=== PATIENT | male | born 1965 | race Caucasian/White ===

== ENCOUNTER 2016-11-02 17:33 | Inpatient (IN) | payer OTHER ==
[2016-11-02 17:40] VITALS: BMI 21.1
--- NOTE | 2016-11-02 18:28 | HP ---
COWS - Scale Resting Pulse: 1= [place] 81-100 Sweatin= Chills/Flushing Restless Observation: 3= Extraneous Movement Pupil Size: 1= Pupils >than Normal Bone or Joint Aches: 2= Severe Diffuse Aches Runny Nose/ Eye Tearin= Runny Nose/Eyes GI Upset > 30mins: 3= Vomiting/Diarrhea Tremor Observation: 2= Slight Tremor Visible Yawning Observation: 1= 1-2x During Session Anxiety or Irritability: 2=Irritable/Anxious Goose Flesh Skin: 3=Piloerection COWS Score: 21 CIWA Score - CIWA Score Nausea/Vomitin Muscle Tremors: 4-Moderate,w/Arms Extend Anxiety: 4-Mod. Anxious/Guarded Agitation: 4-Moderately Restless Paroxysmal Sweats: 2 Orientation: 3-Disoriented Date>2 days Tacttile Disturbances: 0-None Auditory Disturbances: 0-None Visual Disturbances: 0-None Headache: 0-None Present CIWA-Ar Total Score: 19 Admission ROS S - HPI Chief Complaint: withdrawal sx Allergies/Adverse Reactions: Allergies Allergy/AdvReac Type Severity Reaction Status Date / Time No Known Allergies Allergy Verified 05/09/15 13:51 History of Present Illness: 51 years old male with long history of alcohol opiate nicotine dependence, asthma hiv denies mental illness is admitted to detox Exam Limitations: No Limitations - Ebola screening Have you traveled outside of the country in the last 21 days: No Have you had contact with anyone from an Ebola affected area: No Have you been sick,other than usual withdrawal symptoms: No Do you have a fever: No - Review of Systems Constitutional: Chills, Loss of Appetite, Changes in sleep, Unexplained wgt Loss EENT: reports: No Symptoms Reported Respiratory: reports: Cough Cardiac: reports: Palpitations GI: reports: Diarrhea, Nausea, Poor Appetite, Poor Fluid Intake, Vomiting, Indigestion, Abdominal cramping : reports: No Symptoms Reported Musculoskeletal: reports: Back Pain, Joint Pain, Muscle Pain, Neck Pain Integumentary: reports: Change in Color (both inner elbows) Neuro: reports: Tremors Endocrine: reports: No Symptoms Reported Hematology: reports: No Symptoms Reported Psychiatric: reports: Judgement Intact, Mood/Affect Appropiate Other Systems: Reviewed and Negative Patient History - Patient Medical History Hx Anemia: No Hx Asthma: Yes Hx Chronic Obstructive Pulmonary Disease (COPD): No Hx Cancer: No Hx Cardiac Disorders: No Hx Congestive Heart Failure: No Hx Hypertension: No Hx Hypercholesterolemia: No Hx Pacemaker: No HX Cerebrovascular Accident: No Hx Seizures: No Hx Dementia: No Hx Diabetes: No Hx Gastrointestinal Disorders: Yes Hx Liver Disease: No Hx Genitourinary Disorders: No Hx Sexually Transmitted Disorders: No Hx Renal Disease (ESRD): No Hx Thyroid Disease: No Hx Human Immunodeficiency Virus (HIV): Yes Hx Hepatitis C: Yes Hx Depression: No Hx Suicide Attempt: No Hx Bipolar Disorder: No Hx Schizophrenia: No - Patient Surgical History Past Surgical History: No Hx Neurologic Surgery: No Hx Cataract Extraction: No Hx Cardiac Surgery: No Hx Lung Surgery: No Hx Breast Surgery: No Hx Breast Biopsy: No Hx Abdominal Surgery: No Hx Appendectomy: No Hx Cholecystectomy: No Hx Genitourinary Surgery: No Hx Orthopedic Surgery: No Anesthesia Reaction: No - PPD History Previous Implant?: Yes Documented Results: Positive w/o proof Implanted On Prior R Admission?: No PPD to be Administered?: No - Smoking Cessation Smoking history: Current every day smoker Have you smoked in the past 12 months: Yes Aproximately how many cigarettes per day: 5 Cigars Per Day: 0 Hx Chewing Tobacco Use: No Initiated information on smoking cessation: Yes 'Breaking Loose' booklet given: 11/02/16 - Substance & Tx. History Hx Alcohol Use: Yes Hx Substance Use: Yes Substance Use Type: Alcohol, Cocaine, Opiates Hx Substance Use Treatment: Yes - Substances Abused Alcohol Route: Oral Frequency: Daily Amount used: 40oz 6 pack Age of first use: 12 Date of Last Use: 11/02/16 Heroin Route: Injection Frequency: Daily Amount used: 20 bags Age of first use: 12 Date of Last Use: 11/01/16 Family Disease History - Family Disease History Family History: Denies Admission Physical Exam BHS - Vital Signs Vital Signs: Vital Signs - 24 hr 11/02/16 17:35 Temperature 96.8 F L Pulse Rate 95 H Respiratory 20 Rate Blood Pressure 130/83 - Physical General Appearance: Yes: Appropriately Dressed, Moderate Distress, Thin, Tremorous, Irritable, Sweating, Anxious HEENTM: Yes: Hearing grossly Normal, Normal ENT Inspection, Normocephalic, Normal Voice Respiratory: Yes: Chest Non-Tender, Lungs Clear, Normal Breath Sounds, No Respiratory Distress, No Accessory Muscle Use Neck: Yes: Supple, Trachea in good position Breast: Yes: Breasts Symetrical Cardiology: Yes: Regular Rhythm, Regular Rate, S1, S2 Abdominal: Yes: Non Tender, Soft Genitourinary: Yes: Within Normal Limits Back: Yes: Normal Inspection Musculoskeletal: Yes: full range of Motion, Gait Steady, Back pain, Muscle Pain Extremities: Yes: Normal Range of Motion, Non-Tender, Tremors Neurological: Yes: Alert, Motor Strength 5/5, Normal Mood/Affect, Normal Response Integumentary: Yes: Warm, Moist, Track Patel Lymphatic: Yes: Within Normal Limits - Diagnostic (1) Alcohol dependence with uncomplicated withdrawal Current Visit: Yes Status: Acute (2) Opioid dependence with withdrawal Current Visit: Yes Status: Acute (3) Nicotine dependence Current Visit: Yes Status: Acute Qualifiers: Nicotine product type: cigarettes Substance use status: in withdrawal Qualified Code(s): F17.213 - Nicotine dependence, cigarettes, with withdrawal (4) Asthma Current Visit: Yes Status: Acute Qualifiers: Asthma severity: mild intermittent Asthma complication type: with status asthmaticus Qualified Code(s): J45.22 - Mild intermittent asthma with status asthmaticus (5) HIV (human immunodeficiency virus infection) Current Visit: Yes Status: Chronic Comment: last dose "months" ago (6) Weight loss Current Visit: Yes Status: Acute (7) GERD (gastroesophageal reflux disease) Current Visit: Yes Status: Acute (8) Hepatitis C antibody test positive Current Visit: Yes Status: Chronic (9) Positive PPD, treated Current Visit: Yes Status: Resolved Comment: chest x ray pending Cleared for Admission [facility] - Detox or Rehab [facility] Level of Care: Medically Managed Detox Regimen/Protocol: Methadone/Librium [facility] Breath Alcohol Content Breath Alcohol Content: 0 Urine Drug Screen - Results Drug Screen Negative: No Urine Drug Screen Results: EMILIA-Cocaine, OPI-Opiates, TCA-Tricyclic Antidepress
[2016-11-02] MEDS ORDERED: NICOTINE POLACRILEX 2 MG GUM BC PRN (18:36)
[2016-11-02] MEDS ORDERED: MENTHOL/PHENOL 1 EACH UD MM PRN (18:36)
[2016-11-02] MEDS ORDERED: LOPERAMIDE HCL 2 MG CAPSULE PO PRN (18:36)
[2016-11-02] MEDS ORDERED: MAGNESIUM HYDROX 2400MG/30ML ORAL SUSPENSION 30 ML CUP PO PRN (18:36)
[2016-11-02] MEDS ORDERED: MAG HYDROX/AL HYDROX/SIMETH 30 ML UNIT-DOSE CUP PO PRN (18:36)
[2016-11-02] MEDS ORDERED: MAGNESIUM CITRATE 300 ML BOTTLE PO PRN (18:36)
[2016-11-02] MEDS ORDERED: P-EPHED 60MG/TRIPROLIDI 2.5MG TABLET PO PRN (18:36)
[2016-11-02] MEDS ORDERED: METHADONE HCL 10 MG TABLET (FOR DETOX USE ONLY) PO ONE ×2 (18:36→23:00)
[2016-11-02] MEDS ORDERED: chlordiazePOXIDE HCL 25 MG CAPSULE PO ONE (18:36)
[2016-11-02] MEDS ORDERED: chlordiazePOXIDE HCL 25 MG CAPSULE PO PRN (18:36)
[2016-11-02] MEDS ORDERED: ACETAMINOPHEN 325 MG TABLET (FP) PO PRN (18:36)
[2016-11-02] MEDS ORDERED: guaiFENesin/D-METHORPHAN HB 10 ML UNIT-DOSE CUPS PO PRN (18:36)
[2016-11-02] MEDS ORDERED: ALBUTEROL SO4 2.5/IPRATROPIUM 0.5 INH SOL 3 ML VIAL.NEB. NEB PRN (18:39)
[2016-11-02] MEDS ORDERED: ALBUTEROL SO4 6.7 GM HFA INHALER IH PRN (18:39)
[2016-11-02] MEDS: THIAMINE HCL 100 MG TABLET (FP) PO SCH (22:37)
[2016-11-02] MEDS: chlordiazePOXIDE HCL 25 MG CAPSULE PO SCH (22:38)
[2016-11-02] MEDS: RANITIDINE HCL 150 MG TABLET (FP) PO SCH (22:38)
[2016-11-02] MEDS: diphenhydrAMINE HCL 50 MG CAPSULE PO PRN (22:40)
[2016-11-03] MEDS: diphenhydrAMINE HCL 50 MG CAPSULE PO PRN (00:23)
[2016-11-03] MEDS: chlordiazePOXIDE HCL 25 MG CAPSULE PO SCH ×4 (05:49→22:34)
[2016-11-03] MEDS: TAMSULOSIN HCL 0.4 MG CAP.ER.24H (FP) PO SCH (09:38)
[2016-11-03] MEDS ORDERED: ARIPiprazole 5 MG TABLET (FP) PO SCH (10:00)
[2016-11-03] MEDS ORDERED: METHADONE HCL 10 MG TABLET (FOR DETOX USE ONLY) PO SCH (10:00)
[2016-11-03 10:01] LABS: MCH 26.6 pg (25.7-33.7); MCHC 33.1 g/dl (32.0-35.9); MEAN CELL VOLUME 80.1 fl (80-96); MEAN PLT VOLUME 7.9 fl (7.5-11.1); PLATELET COUNT 101 K/MM3 (134-434); RDW 14.9 % (11.9-15.9); WHITE BLOOD COUNT 2.9 K/mm3 (4.0-10.0)
[2016-11-03] MEDS: PRENATAL VITAMINS W/ FOLIC ACID TABLET (FP) PO SCH (10:32)
[2016-11-03] MEDS: RANITIDINE HCL 150 MG TABLET (FP) PO SCH ×2 (10:32→22:07)
[2016-11-03] MEDS: NICOTINE 14 MG/24 HOURS TOPICAL PATCH TD SCH (10:32)
--- NOTE | 2016-11-03 11:26 | PN ---
S CIWA - CIWA Score Nausea/Vomitin Muscle Tremors: 4-Moderate,w/Arms Extend Anxiety: 4-Mod. Anxious/Guarded Agitation: 4-Moderately Restless Paroxysmal Sweats: 3 Orientation: 0-Oriented Tacttile Disturbances: 1-Very Mild Itch/Numbness Auditory Disturbances: 0-None Visual Disturbances: 0-None Headache: 0-None Present CIWA-Ar Total Score: 19 S COWS - Scale Resting Pulse: 1= [place] 81-100 Sweatin= Chills/Flushing Restless Observation: 1= Difficult to Sit Still Pupil Size: 1= Pupils >than Normal Bone or Joint Aches: 1= Mild Discomfort Runny Nose/ Eye Tearin= Nasal Congestion GI Upset > 30mins: 2= Nausea/Diarrhea Tremor Observation of Outstretched Hands: 2= Slight Tremor Visible Yawning Observation: 1= 1-2x During Session Anxiety or Irritability: 2=Irritable/Anxious Goose Flesh Skin: 3=Piloerection COWS Score: 16 S Progress Note (SOAP) Subjective: nausea, sweats, interrupted sleep, anxiety, tremor, back pain, dry skin Objective: 11/03/16 11:25 Vital Signs - 8 hr 11/03/16 11/03/16 11/03/16 03:47 06:35 10:12 Temperature 97.0 F L 96.6 F L Pulse Rate 74 86 Respiratory 18 18 18 Rate Blood Pressure 125/88 127/88 Laboratory Tests 11/02/16 11/03/16 11/03/16 22:28 07:15 07:15 WBC 2.9 L RBC 4.81 Hgb 12.8 Hct 38.5 MCV 80.1 MCHC 33.1 RDW 14.9 Plt Count 101 L D MPV 7.9 Sodium 143 Potassium 3.6 Chloride 106 Carbon Dioxide 28 Anion Gap 9 BUN 15 Creatinine 1.0 Creat Clearance w eGFR > 60 Random Glucose 99 Calcium 8.5 Total Bilirubin 0.7 AST 25 D ALT 39 Alkaline Phosphatase 70 Total Protein 7.1 Albumin 3.6 Urine Color Straw Urine Appearance Clear Urine pH 7.0 Ur Specific [place] 1.008 Urine Protein Negative Urine Glucose (UA) Negative Urine Ketones Negative Urine Blood Negative Urine Nitrite Negative Urine Bilirubin Negative Urine Urobilinogen Negative Ur Leukocyte Esterase Negative Assessment: 11/03/16 11:25 withdrawal sx, chronic low back ain, dry skin/xerosis Plan: cont detox, naprosyn, flexeril for pain, d/c tyleno as patient has hep c with liver damage, encoruage fluids for dehydation
[2016-11-03] MEDS: AMMONIUM LACTATE 12% LOTION 225 GM BOTTLE TP SCH ×2 (12:26→22:09)
[2016-11-03] MEDS: LIDOCAINE 5% TOPICAL PATCH TP SCH (12:27)
[2016-11-03] MEDS: NAPROXEN 500 MG TABLET (FP) PO SCH ×2 (12:27→22:07)
[2016-11-03] MEDS: CYCLOBENZAPRINE HCL 10 MG TABLET (FP) PO SCH ×2 (14:04→22:08)
--- NOTE | 2016-11-03 14:28 | EKG ---
Test Reason : Blood Pressure : / mmHG Vent. Rate : 083 BPM Atrial Rate : 083 BPM P-R Int : 106 ms QRS Dur : 076 ms QT Int : 348 ms P-R-T Axes : 046 053 041 degrees QTc Int : 408 ms SINUS RHYTHM WITH SHORT DC OTHERWISE NORMAL ECG WHEN COMPARED WITH ECG OF 09-MAY-2015 20:14, NON-SPECIFIC CHANGE IN ST SEGMENT IN ANTERIOR LEADS NONSPECIFIC T WAVE ABNORMALITY NO LONGER EVIDENT IN ANTERIOR LEADS Confirmed by SHADE WADSWORTH MD ([id number]) on 11/03/2016 2:28:15 PM Referred By: Confirmed By:SHADE WADSWORTH MD
--- NOTE | 2016-11-03 15:00 | CONSULT ---
[id number] [facility] Identifying data: This is 51 years old male with history of Schizophrenia, history of psychiatric hospitalizations, intoxicated with: Alcohol, Heroin and Nicotine Substance Abuse History: Smoking Cessation. Smoking history: Current every day smoker. Have you smoked in the past 12 months: Yes. Aproximately how many cigarettes per day: 5. Cigars Per Day: 0. Hx Chewing Tobacco Use: No. Initiated information on smoking cessation: Yes. 'Breaking Loose' booklet given : 11/02/16. - Substance & Tx. History. Hx Alcohol Use: Yes. Hx Substance Use : Yes. Substance Use Type: Alcohol, Cocaine, Opiates. Hx Substance Use Treatment: Yes. - Substances Abused. Alcohol. Route: Oral. Frequency: Daily. Amount used: 40oz 6 pack. Age of first use: 12. Date of Last Use: . Heroin. Route: Injection. Frequency: Daily. Amount used: 20 bags. Age of first use: 12. Date of Last Use: 11/01/16 Medical History: Asthma, HPH, GERD, HIV+, Weight loss, HepC+, [id number] history Psychiatric History: Patient reportsa history of Schizophrenmia, [facility], reports currently taking: Abilify 5mg po qhs. Ambien 10mg po qhs Physical/Sexual Abuse/Trauma History: Denies Additional Comment: Abilify 5mg po qhs. Ambien 10mg po qhs Mental Status Exam - Mental Status Exam Alert and Oriented to: Person Cognitive Function: Fair Patient Appearance: Unkempt Mood: Anxious Affect: Labile Patient Behavior: Guarded, Talkative, Agitated Speech Pattern: Excessive Voice Loudness: Mildly Loud Thought Process: Circumstantial Thought Disorder: Being Controlled Hallucinations: Denies Suicidal Ideation: Denies Homicidal Ideation: Denies Insight/Judgement: Fair Sleep: Difficulty falling asleep Appetite: Weight loss Muscle strength/Tone: Normal Gait/Station: Normal Additional Comments: Abilify 5mg po qhs. Ambien 10mg po qhs Psychiatric Findings - Problem List ([place] 1, 2,3) (1) Alcohol dependence Status: Acute (2) Alcohol dependence with uncomplicated withdrawal Status: Acute (3) Heroin dependence Status: Acute (4) Nicotine dependence Status: Acute Qualifiers: Nicotine product type: cigarettes Substance use status: in withdrawal Qualified Code(s): F17.213 - Nicotine dependence, cigarettes, with withdrawal (5) Opioid dependence with withdrawal Status: Acute (6) Drug-induced mood disorder Status: Acute - Initial Treatment Plan Initial Treatment Plan: Abilify 5mg po qhs. Ambien 10mg po qhs
[2016-11-03] MEDS: ARIPiprazole 5 MG TABLET (FP) PO SCH (22:07)
[2016-11-03] MEDS: ZOLPIDEM TARTRATE 10 MG TABLET (PARK CARE ONLY) PO PRN (22:07)
[2016-11-03] MEDS: THIAMINE HCL 100 MG TABLET (FP) PO SCH (22:07)
[2016-11-04] MEDS: chlordiazePOXIDE HCL 25 MG CAPSULE PO SCH ×3 (05:53→17:23)
[2016-11-04] MEDS: CYCLOBENZAPRINE HCL 10 MG TABLET (FP) PO SCH ×2 (05:54→15:03)
--- NOTE | 2016-11-04 09:47 | PN ---
S CIWA - CIWA Score Nausea/Vomitin Muscle Tremors: 4-Moderate,w/Arms Extend Anxiety: 4-Mod. Anxious/Guarded Agitation: 4-Moderately Restless Paroxysmal Sweats: 3 Orientation: 0-Oriented Tacttile Disturbances: 1-Very Mild Itch/Numbness Auditory Disturbances: 0-None Visual Disturbances: 0-None Headache: 0-None Present CIWA-Ar Total Score: 19 BHS COWS - Scale Resting Pulse: 1= [place] 81-100 Sweatin= Chills/Flushing Restless Observation: 1= Difficult to Sit Still Pupil Size: 1= Pupils >than Normal Bone or Joint Aches: 1= Mild Discomfort Runny Nose/ Eye Tearin= Nasal Congestion GI Upset > 30mins: 2= Nausea/Diarrhea Tremor Observation of Outstretched Hands: 2= Slight Tremor Visible Yawning Observation: 1= 1-2x During Session Anxiety or Irritability: 2=Irritable/Anxious Goose Flesh Skin: 3=Piloerection COWS Score: 16 S Progress Note (SOAP) Subjective: nausea, sweats, interrupted sleep, anxiety, tremor Objective: 11/04/16 09:46 Vital Signs - 24 hr 11/03/16 11/03/16 11/03/16 10:12 13:40 18:08 Temperature 96.6 F L 96.4 F L 96.8 F L Pulse Rate 86 85 81 Respiratory 18 18 18 Rate Blood Pressure 127/88 133/97 107/66 11/03/16 11/04/16 11/04/16 21:46 00:13 03:30 Temperature 95.5 F L Pulse Rate 96 H Respiratory 18 18 18 Rate Blood Pressure 109/70 11/04/16 06:30 Temperature 96.1 F L Pulse Rate 74 Respiratory 16 Rate Blood Pressure 109/67 Laboratory Tests 11/02/16 11/03/16 11/03/16 22:28 07:15 07:15 WBC 2.9 L RBC 4.81 Hgb 12.8 Hct 38.5 MCV 80.1 MCHC 33.1 RDW 14.9 Plt Count 101 L D MPV 7.9 Sodium 143 Potassium 3.6 Chloride 106 Carbon Dioxide 28 Anion Gap 9 BUN 15 Creatinine 1.0 Creat Clearance w eGFR > 60 Random Glucose 99 Calcium 8.5 Total Bilirubin 0.7 AST 25 D ALT 39 Alkaline Phosphatase 70 Total Protein 7.1 Albumin 3.6 Urine Color Straw Urine Appearance Clear Urine pH 7.0 Ur Specific [place] 1.008 Urine Protein Negative Urine Glucose (UA) Negative Urine Ketones Negative Urine Blood Negative Urine Nitrite Negative Urine Bilirubin Negative Urine Urobilinogen Negative Ur Leukocyte Esterase Negative RPR Titer 11/03/16 07:15 WBC RBC Hgb Hct MCV MCHC RDW Plt Count MPV Sodium Potassium Chloride Carbon Dioxide Anion Gap BUN Creatinine Creat Clearance w eGFR Random Glucose Calcium Total Bilirubin AST ALT Alkaline Phosphatase Total Protein Albumin Urine Color Urine Appearance Urine pH Ur Specific [place] Urine Protein Urine Glucose (UA) Urine Ketones Urine Blood Urine Nitrite Urine Bilirubin Urine Urobilinogen Ur Leukocyte Esterase RPR Titer Nonreactive Assessment: 11/04/16 09:46 withdrawal sx Plan: cont detox
[2016-11-04] MEDS: METHADONE HCL 5 MG TABLET (FOR DETOX USE ONLY) PO SCH (10:29)
[2016-11-04] MEDS: NAPROXEN 500 MG TABLET (FP) PO SCH ×2 (10:29→22:25)
[2016-11-04] MEDS: TAMSULOSIN HCL 0.4 MG CAP.ER.24H (FP) PO SCH (10:29)
[2016-11-04] MEDS: RANITIDINE HCL 150 MG TABLET (FP) PO SCH ×2 (10:29→22:26)
[2016-11-04] MEDS: PRENATAL VITAMINS W/ FOLIC ACID TABLET (FP) PO SCH (10:30)
[2016-11-04] MEDS: AMMONIUM LACTATE 12% LOTION 225 GM BOTTLE TP SCH (10:30)
[2016-11-04] MEDS: NICOTINE 14 MG/24 HOURS TOPICAL PATCH TD SCH (10:30)
[2016-11-04] MEDS: LIDOCAINE 5% TOPICAL PATCH TP SCH (10:30)
[2016-11-04] MEDS: SENNOSIDES 8.6MG TABLET (FP) PO SCH ×2 (10:31→22:25)
--- NOTE | 2016-11-04 11:44 | PN ---
BHS Progress Note (SOAP) Subjective: nausea, sweats, interrupted sleep, anxiety, tremor Objective: 11/04/16 11:43 Vital Signs - 8 hr 11/04/16 11/04/16 06:30 10:03 Temperature 96.1 F L 97.5 F L Pulse Rate 74 84 Respiratory 16 18 Rate Blood Pressure 109/67 112/76 Laboratory Tests 11/02/16 11/03/16 11/03/16 22:28 07:15 07:15 WBC 2.9 L RBC 4.81 Hgb 12.8 Hct 38.5 MCV 80.1 MCHC 33.1 RDW 14.9 Plt Count 101 L D MPV 7.9 Sodium 143 Potassium 3.6 Chloride 106 Carbon Dioxide 28 Anion Gap 9 BUN 15 Creatinine 1.0 Creat Clearance w eGFR > 60 Random Glucose 99 Calcium 8.5 Total Bilirubin 0.7 AST 25 D ALT 39 Alkaline Phosphatase 70 Total Protein 7.1 Albumin 3.6 Urine Color Straw Urine Appearance Clear Urine pH 7.0 Ur Specific [place] 1.008 Urine Protein Negative Urine Glucose (UA) Negative Urine Ketones Negative Urine Blood Negative Urine Nitrite Negative Urine Bilirubin Negative Urine Urobilinogen Negative Ur Leukocyte Esterase Negative RPR Titer 11/03/16 07:15 WBC RBC Hgb Hct MCV MCHC RDW Plt Count MPV Sodium Potassium Chloride Carbon Dioxide Anion Gap BUN Creatinine Creat Clearance w eGFR Random Glucose Calcium Total Bilirubin AST ALT Alkaline Phosphatase Total Protein Albumin Urine Color Urine Appearance Urine pH Ur Specific [place] Urine Protein Urine Glucose (UA) Urine Ketones Urine Blood Urine Nitrite Urine Bilirubin Urine Urobilinogen Ur Leukocyte Esterase RPR Titer Nonreactive Assessment: 11/04/16 11:44 withdrawal sx Plan: cont detox
--- NOTE | 2016-11-04 11:45 | PN ---
BHS Progress Note (SOAP) Subjective: nausea, sweats, interrupted sleep, anxeity, tremor Objective: 11/04/16 11:45 Vital Signs - 8 hr 11/04/16 11/04/16 06:30 10:03 Temperature 96.1 F L 97.5 F L Pulse Rate 74 84 Respiratory 16 18 Rate Blood Pressure 109/67 112/76 Laboratory Tests 11/02/16 11/03/16 11/03/16 22:28 07:15 07:15 WBC 2.9 L RBC 4.81 Hgb 12.8 Hct 38.5 MCV 80.1 MCHC 33.1 RDW 14.9 Plt Count 101 L D MPV 7.9 Sodium 143 Potassium 3.6 Chloride 106 Carbon Dioxide 28 Anion Gap 9 BUN 15 Creatinine 1.0 Creat Clearance w eGFR > 60 Random Glucose 99 Calcium 8.5 Total Bilirubin 0.7 AST 25 D ALT 39 Alkaline Phosphatase 70 Total Protein 7.1 Albumin 3.6 Urine Color Straw Urine Appearance Clear Urine pH 7.0 Ur Specific [place] 1.008 Urine Protein Negative Urine Glucose (UA) Negative Urine Ketones Negative Urine Blood Negative Urine Nitrite Negative Urine Bilirubin Negative Urine Urobilinogen Negative Ur Leukocyte Esterase Negative RPR Titer 11/03/16 07:15 WBC RBC Hgb Hct MCV MCHC RDW Plt Count MPV Sodium Potassium Chloride Carbon Dioxide Anion Gap BUN Creatinine Creat Clearance w eGFR Random Glucose Calcium Total Bilirubin AST ALT Alkaline Phosphatase Total Protein Albumin Urine Color Urine Appearance Urine pH Ur Specific [place] Urine Protein Urine Glucose (UA) Urine Ketones Urine Blood Urine Nitrite Urine Bilirubin Urine Urobilinogen Ur Leukocyte Esterase RPR Titer Nonreactive Assessment: 11/04/16 11:45 withdrawal sx Plan: cont detox, fluids, encourage ambulation
[2016-11-04] MEDS: DOCUSATE SODIUM 100 MG CAPSULE (FP) PO SCH (22:24)
[2016-11-04] MEDS: THIAMINE HCL 100 MG TABLET (FP) PO SCH (22:25)
[2016-11-04] MEDS: chlordiazePOXIDE 5 MG CAPSULE PO SCH (22:26)
[2016-11-04] MEDS: ZOLPIDEM TARTRATE 10 MG TABLET (PARK CARE ONLY) PO PRN (22:30)
[2016-11-05] MEDS: ARIPiprazole 5 MG TABLET (FP) PO SCH ×2 (00:30→22:21)
[2016-11-05] MEDS: CYCLOBENZAPRINE HCL 10 MG TABLET (FP) PO SCH ×4 (00:30→22:21)
[2016-11-05] MEDS: AMMONIUM LACTATE 12% LOTION 225 GM BOTTLE TP SCH ×3 (00:30→22:24)
[2016-11-05] MEDS: chlordiazePOXIDE 5 MG CAPSULE PO SCH ×3 (07:35→17:34)
[2016-11-05] MEDS: TAMSULOSIN HCL 0.4 MG CAP.ER.24H (FP) PO SCH (08:59)
[2016-11-05] MEDS: NAPROXEN 500 MG TABLET (FP) PO SCH ×2 (10:18→22:21)
[2016-11-05] MEDS: METHADONE HCL 5 MG TABLET (FOR DETOX USE ONLY) PO SCH ×2 (10:18→10:45)
[2016-11-05] MEDS: PRENATAL VITAMINS W/ FOLIC ACID TABLET (FP) PO SCH (10:18)
[2016-11-05] MEDS: SENNOSIDES 8.6MG TABLET (FP) PO SCH ×2 (10:18→22:21)
[2016-11-05] MEDS: RANITIDINE HCL 150 MG TABLET (FP) PO SCH ×2 (10:18→22:21)
[2016-11-05] MEDS: NICOTINE 14 MG/24 HOURS TOPICAL PATCH TD SCH (10:18)
[2016-11-05] MEDS: LIDOCAINE 5% TOPICAL PATCH TP SCH (10:19)
[2016-11-05] MEDS ORDERED: SODIUM PHOSPHATE/NA BIPHOS 133 ML ENEMA PR ONE (10:45)
--- NOTE | 2016-11-05 11:37 | PN ---
BHS Progress Note (SOAP) Subjective: SWEATING,INTERRUPTED SLEEP,RESTLESS Objective: 11/05/16 11:35 Vital Signs - 8 hr 11/05/16 11/05/16 06:08 10:46 Temperature 96.1 F L 96 F L Pulse Rate 75 84 Respiratory 16 20 Rate Blood Pressure 112/74 107/69 Laboratory Last Values WBC 2.9 K/mm3 (4.0-10.0) L 11/03/16 07:15 RBC 4.81 M/mm3 (4.00-5.60) 11/03/16 07:15 Hgb 12.8 GM/dL (11.7-16.9) 11/03/16 07:15 Hct 38.5 % (35.4-49) 11/03/16 07:15 MCV 80.1 fl (80-96) 11/03/16 07:15 MCHC 33.1 g/dl (32.0-35.9) 11/03/16 07:15 RDW 14.9 % (11.9-15.9) 11/03/16 07:15 Plt Count 101 K/MM3 (134-434) L D 11/03/16 07:15 MPV 7.9 fl (7.5-11.1) 11/03/16 07:15 Sodium 143 mmol/L (136-145) 11/03/16 07:15 Potassium 3.6 mmol/L (3.5-5.1) 11/03/16 07:15 Chloride 106 mmol/L (98-107) 11/03/16 07:15 Carbon Dioxide 28 mmol/L (21-32) 11/03/16 07:15 Anion Gap 9 (8-16) 11/03/16 07:15 BUN 15 mg/dL (7-18) 11/03/16 07:15 Creatinine 1.0 mg/dL (0.7-1.3) 11/03/16 07:15 Creat Clearance w eGFR > 60 (>60) 11/03/16 07:15 Random Glucose 99 mg/dL (74-106) 11/03/16 07:15 Calcium 8.5 mg/dL (8.5-10.1) 11/03/16 07:15 Total Bilirubin 0.7 mg/dL (0.2-1.0) 11/03/16 07:15 AST 25 U/L (15-37) D 11/03/16 07:15 ALT 39 U/L (12-78) 11/03/16 07:15 Alkaline Phosphatase 70 U/L (45-117) 11/03/16 07:15 Total Protein 7.1 g/dl (6.4-8.2) 11/03/16 07:15 Albumin 3.6 g/dl (3.4-5.0) 11/03/16 07:15 Urine Color Straw 11/02/16 22:28 Urine Appearance Clear 11/02/16 22:28 Urine pH 7.0 (5.0-8.0) 11/02/16 22:28 Ur Specific [place] 1.008 (1.001-1.035) 11/02/16 22:28 Urine Protein Negative (NEGATIVE) 11/02/16 22:28 Urine Glucose (UA) Negative (NEGATIVE) 11/02/16 22:28 Urine Ketones Negative (NEGATIVE) 11/02/16 22:28 Urine Blood Negative (NEGATIVE) 11/02/16 22:28 Urine Nitrite Negative (NEGATIVE) 11/02/16 22:28 Urine Bilirubin Negative (NEGATIVE) 11/02/16 22:28 Urine Urobilinogen Negative E.U./dl (0.2-1.0) 11/02/16 22:28 Ur Leukocyte Esterase Negative (NEGATIVE) 11/02/16 22:28 RPR Titer Nonreactive (NONREACTIVE) 11/03/16 07:15 LABS NOTED Assessment: 11/05/16 11:36 WITHDRAWAL SX. Plan: CONTINUE DETOX
[2016-11-05] MEDS: DOCUSATE SODIUM 100 MG CAPSULE (FP) PO SCH (22:21)
[2016-11-05] MEDS: chlordiazePOXIDE HCL 10 MG CAPSULE PO SCH (22:21)
[2016-11-05] MEDS: THIAMINE HCL 100 MG TABLET (FP) PO SCH (22:21)
[2016-11-06] MEDS: chlordiazePOXIDE HCL 10 MG CAPSULE PO SCH ×3 (06:04→17:32)
[2016-11-06] MEDS: CYCLOBENZAPRINE HCL 10 MG TABLET (FP) PO SCH ×3 (06:04→22:23)
[2016-11-06] MEDS: TAMSULOSIN HCL 0.4 MG CAP.ER.24H (FP) PO SCH (08:41)
[2016-11-06] MEDS ORDERED: METHADONE HCL 10 MG TABLET (FOR DETOX USE ONLY) PO SCH (10:00)
[2016-11-06] MEDS: PRENATAL VITAMINS W/ FOLIC ACID TABLET (FP) PO SCH (10:28)
[2016-11-06] MEDS: RANITIDINE HCL 150 MG TABLET (FP) PO SCH ×2 (10:28→22:23)
[2016-11-06] MEDS: AMMONIUM LACTATE 12% LOTION 225 GM BOTTLE TP SCH ×2 (10:29→22:24)
[2016-11-06] MEDS: SENNOSIDES 8.6MG TABLET (FP) PO SCH ×2 (10:29→22:23)
[2016-11-06] MEDS: NAPROXEN 500 MG TABLET (FP) PO SCH ×2 (10:29→22:23)
[2016-11-06] MEDS: NICOTINE 14 MG/24 HOURS TOPICAL PATCH TD SCH (10:29)
[2016-11-06] MEDS: LIDOCAINE 5% TOPICAL PATCH TP SCH (10:29)
--- NOTE | 2016-11-06 13:49 | PN ---
BHS Progress Note (SOAP) Subjective: Nausea, interrupted sleep, anxious Objective: 11/06/16 13:44 Last Vital Signs Temp Pulse Resp BP Pulse Ox 97.6 F 81 18 125/85 11/06/16 13:05 11/06/16 13:05 11/06/16 13:05 11/06/16 13:05 Laboratory Tests 11/02/16 11/03/16 11/03/16 22:28 07:15 07:15 WBC 2.9 L RBC 4.81 Hgb 12.8 Hct 38.5 MCV 80.1 MCHC 33.1 RDW 14.9 Plt Count 101 L D MPV 7.9 Sodium 143 Potassium 3.6 Chloride 106 Carbon Dioxide 28 Anion Gap 9 BUN 15 Creatinine 1.0 Creat Clearance w eGFR > 60 Random Glucose 99 Calcium 8.5 Total Bilirubin 0.7 AST 25 D ALT 39 Alkaline Phosphatase 70 Total Protein 7.1 Albumin 3.6 Urine Color Straw Urine Appearance Clear Urine pH 7.0 Ur Specific [place] 1.008 Urine Protein Negative Urine Glucose (UA) Negative Urine Ketones Negative Urine Blood Negative Urine Nitrite Negative Urine Bilirubin Negative Urine Urobilinogen Negative Ur Leukocyte Esterase Negative RPR Titer 11/03/16 07:15 WBC RBC Hgb Hct MCV MCHC RDW Plt Count MPV Sodium Potassium Chloride Carbon Dioxide Anion Gap BUN Creatinine Creat Clearance w eGFR Random Glucose Calcium Total Bilirubin AST ALT Alkaline Phosphatase Total Protein Albumin Urine Color Urine Appearance Urine pH Ur Specific [place] Urine Protein Urine Glucose (UA) Urine Ketones Urine Blood Urine Nitrite Urine Bilirubin Urine Urobilinogen Ur Leukocyte Esterase RPR Titer Nonreactive Labs noted Assessment: 11/06/16 13:49 Withdrawal symptoms Plan: Continue detox
[2016-11-06] MEDS: ZOLPIDEM TARTRATE 10 MG TABLET (PARK CARE ONLY) PO PRN (21:51)
[2016-11-06] MEDS: THIAMINE HCL 100 MG TABLET (FP) PO SCH (22:22)
[2016-11-06] MEDS: ARIPiprazole 5 MG TABLET (FP) PO SCH (22:23)
[2016-11-06] MEDS: DOCUSATE SODIUM 100 MG CAPSULE (FP) PO SCH (22:24)
[2016-11-07] MEDS: CYCLOBENZAPRINE HCL 10 MG TABLET (FP) PO SCH ×2 (05:43→05:44)
[2016-11-07] MEDS ORDERED: METHADONE HCL 5 MG TABLET (FOR DETOX USE ONLY) PO SCH (06:00)
[2016-11-07 09:37] VITALS: BP 118/76; PULSE 83; TEMP 95.4
--- NOTE | 2016-11-07 09:42 | DS ---
[facility] Detox Discharge Summary Admission Date: 11/02/16 Discharge Date: 11/07/16 - History Present History: Alcohol Dependence, Opioid Dependence Pertinent Past History: aids asthma BPH GERD - Physical Exam Results Vital Signs: Vital Signs Temperature 95.4 F L 11/07/16 09:37 Pulse Rate 83 11/07/16 09:37 Respiratory Rate 18 11/07/16 09:37 Blood Pressure 118/76 11/07/16 09:37 O2 Sat by Pulse Oximetry (%) Pertinent Admission Physical Exam Findings: withdrawal sx. Laboratory Last Values WBC 2.9 K/mm3 (4.0-10.0) L 11/03/16 07:15 RBC 4.81 M/mm3 (4.00-5.60) 11/03/16 07:15 Hgb 12.8 GM/dL (11.7-16.9) 11/03/16 07:15 Hct 38.5 % (35.4-49) 11/03/16 07:15 MCV 80.1 fl (80-96) 11/03/16 07:15 MCHC 33.1 g/dl (32.0-35.9) 11/03/16 07:15 RDW 14.9 % (11.9-15.9) 11/03/16 07:15 Plt Count 101 K/MM3 (134-434) L D 11/03/16 07:15 MPV 7.9 fl (7.5-11.1) 11/03/16 07:15 Sodium 143 mmol/L (136-145) 11/03/16 07:15 Potassium 3.6 mmol/L (3.5-5.1) 11/03/16 07:15 Chloride 106 mmol/L (98-107) 11/03/16 07:15 Carbon Dioxide 28 mmol/L (21-32) 11/03/16 07:15 Anion Gap 9 (8-16) 11/03/16 07:15 BUN 15 mg/dL (7-18) 11/03/16 07:15 Creatinine 1.0 mg/dL (0.7-1.3) 11/03/16 07:15 Creat Clearance w eGFR > 60 (>60) 11/03/16 07:15 Random Glucose 99 mg/dL (74-106) 11/03/16 07:15 Calcium 8.5 mg/dL (8.5-10.1) 11/03/16 07:15 Total Bilirubin 0.7 mg/dL (0.2-1.0) 11/03/16 07:15 AST 25 U/L (15-37) D 11/03/16 07:15 ALT 39 U/L (12-78) 11/03/16 07:15 Alkaline Phosphatase 70 U/L (45-117) 11/03/16 07:15 Total Protein 7.1 g/dl (6.4-8.2) 11/03/16 07:15 Albumin 3.6 g/dl (3.4-5.0) 11/03/16 07:15 Urine Color Straw 11/02/16 22:28 Urine Appearance Clear 11/02/16 22:28 Urine pH 7.0 (5.0-8.0) 11/02/16 22:28 Ur Specific [place] 1.008 (1.001-1.035) 11/02/16 22:28 Urine Protein Negative (NEGATIVE) 11/02/16 22:28 Urine Glucose (UA) Negative (NEGATIVE) 11/02/16 22:28 Urine Ketones Negative (NEGATIVE) 11/02/16 22:28 Urine Blood Negative (NEGATIVE) 11/02/16 22:28 Urine Nitrite Negative (NEGATIVE) 11/02/16 22:28 Urine Bilirubin Negative (NEGATIVE) 11/02/16 22:28 Urine Urobilinogen Negative E.U./dl (0.2-1.0) 11/02/16 22:28 Ur Leukocyte Esterase Negative (NEGATIVE) 11/02/16 22:28 RPR Titer Nonreactive (NONREACTIVE) 11/03/16 07:15 labs noted - Treatment Hospital Course: Detox Protocol Followed, Detoxed Safely, Responded well, Discharged Condition Good, Rehab Referral Accepted - Medication Discharge Medications: Ambulatory Orders Aripiprazole [Abilify -] 15 mg PO DAILY 04/26/15 Esomeprazole Mag Trihydrate [Nexium] 20 mg PO DAILY 04/26/15 Efavirenz/Emtricitab/Tenofovir [Atripla Tablet -] 1 tab PO DAILY #7 tab Raltegravir [Isentress] 400 mg PO BID #14 tab 05/12/15 Albuterol Sulfate Inhaler - [Ventolin Hfa Inhaler -] 2 inh PO Q4H 11/02/16 Amitriptyline HCl [Elavil -] 25 mg PO HS 11/02/16 Tamsulosin HCl [Flomax] 0.4 mg PO DAILY 11/02/16 Aripiprazole [Abilify -] 5 mg PO DAILY #30 tablet 11/03/16 Zolpidem Tartrate [Ambien] 10 mg PO HS #14 tablet MDD 10 11/03/16 - Diagnosis (1) Alcohol dependence with uncomplicated withdrawal Current Visit: Yes Status: Acute (2) Asthma Current Visit: Yes Status: Acute Qualifiers: Asthma severity: mild intermittent Asthma complication type: with status asthmaticus Qualified Code(s): J45.22 - Mild intermittent asthma with status asthmaticus (3) BPH (benign prostatic hyperplasia) Current Visit: Yes Status: Acute (4) GERD (gastroesophageal reflux disease) Current Visit: Yes Status: Acute Qualifiers: Esophagitis presence: without esophagitis Qualified Code(s): K21.9 - Gastro-esophageal reflux disease without esophagitis (5) Nicotine dependence Current Visit: Yes Status: Acute Qualifiers: Nicotine product type: cigarettes Substance use status: in withdrawal Qualified Code(s): F17.213 - Nicotine dependence, cigarettes, with withdrawal (6) Opioid dependence with withdrawal Current Visit: Yes Status: Acute (7) Hepatitis C antibody test positive Current Visit: Yes Status: Chronic (8) AIDS (acquired immune deficiency syndrome) Current Visit: Yes Status: Acute - AMA Did Patient Leave Against Medical Advice: No
[2016-11-07] MEDS: NAPROXEN 500 MG TABLET (FP) PO SCH (10:14)
[2016-11-07] MEDS: PRENATAL VITAMINS W/ FOLIC ACID TABLET (FP) PO SCH (10:14)
[2016-11-07] MEDS: NICOTINE 14 MG/24 HOURS TOPICAL PATCH TD SCH (10:15)
[2016-11-07] MEDS: LIDOCAINE 5% TOPICAL PATCH TP SCH (10:15)
[2016-11-07] MEDS: AMMONIUM LACTATE 12% LOTION 225 GM BOTTLE TP SCH (10:15)
[2016-11-07] MEDS: SENNOSIDES 8.6MG TABLET (FP) PO SCH (10:15)
[2016-11-07] MEDS: TAMSULOSIN HCL 0.4 MG CAP.ER.24H (FP) PO SCH (10:15)
[2016-11-07] MEDS: RANITIDINE HCL 150 MG TABLET (FP) PO SCH (10:16)
[2016-11-08] MEDS ORDERED: LIDOCAINE 5% TOPICAL PATCH TP SCH (10:00)
== END 2016-11-07 10:50 | disposition other institution (70) | DRG 773 ==
LOC: YASAS 17:33 → Y3N 19:10
PROVIDERS: ADMIT Internal Medicine; ATTEND Internal Medicine
PROC: HZ2ZZZZ Detoxification Services for Substance Abuse Treatment (ICD-10-PCS; principal; 2016-11-07)
DX: F11.23 Opioid dependence with withdrawal (principal); F10.230 Alcohol dependence with withdrawal, uncomplicated; F17.213 Nicotine dependence, cigarettes, with withdrawal; F19.24 Other psychoactive substance dependence with psychoactive substance-induced mood disorder; J45.22 Mild intermittent asthma with status asthmaticus; B18.2 Chronic viral hepatitis C; B20 Human immunodeficiency virus [HIV] disease; K21.9 Gastro-esophageal reflux disease without esophagitis; N40.0 Benign prostatic hyperplasia without lower urinary tract symptoms
CPT/HCPCS: 36415; 71020-TC; 80053; 81003; 85027; 86593; 93005; 93010

== ENCOUNTER 2016-11-07 11:21 | Inpatient (IN) | payer OTHER ==
[2016-11-07] MEDS ORDERED: MAGNESIUM CITRATE 300 ML BOTTLE PO PRN (12:04)
[2016-11-07] MEDS ORDERED: MENTHOL/PHENOL 1 EACH UD MM PRN (12:04)
[2016-11-07] MEDS ORDERED: MAGNESIUM HYDROX 2400MG/30ML ORAL SUSPENSION 30 ML CUP PO PRN (12:04)
[2016-11-07] MEDS ORDERED: guaiFENesin/D-METHORPHAN HB 10 ML UNIT-DOSE CUPS PO PRN (12:04)
[2016-11-07] MEDS ORDERED: LOPERAMIDE HCL 2 MG CAPSULE PO PRN (12:04)
[2016-11-07] MEDS ORDERED: P-EPHED 60MG/TRIPROLIDI 2.5MG TABLET PO PRN (12:04)
[2016-11-07] MEDS ORDERED: ALBUTEROL SO4 6.7 GM HFA INHALER IH PRN (12:05)
[2016-11-07] MEDS ORDERED: SENNOSIDES 8.6MG TABLET (FP) PO PRN (12:06)
--- NOTE | 2016-11-07 16:23 | HP ---
[facility] Re[facility] Assess/Revision - Admission History Admitted to Rehab from: [facility] Date of Admission to Rehab: 11/07/16 - Findings Detox History & Physical reviewed: Yes Concur with findings: Yes Comments/Additional Findings: transferred from detox to rehab admission as per protocol
[2016-11-07] MEDS: THIAMINE HCL 100 MG TABLET (FP) PO SCH (21:36)
[2016-11-07] MEDS: diphenhydrAMINE HCL 50 MG CAPSULE PO PRN (21:36)
[2016-11-07] MEDS: ARIPiprazole 5 MG TABLET (FP) PO SCH (21:37)
[2016-11-07] MEDS: IBUPROFEN 400 MG TABLET (FP) PO PRN (22:25)
[2016-11-08] MEDS: IBUPROFEN 400 MG TABLET (FP) PO PRN (01:14)
[2016-11-08] MEDS: diphenhydrAMINE HCL 50 MG CAPSULE PO PRN (01:14)
[2016-11-08] MEDS: PRENATAL VITAMINS W/ FOLIC ACID TABLET (FP) PO SCH (10:06)
[2016-11-08] MEDS: TAMSULOSIN HCL 0.4 MG CAP.ER.24H (FP) PO SCH (10:06)
[2016-11-08] MEDS: hydrOXYzine PAMOATE 50 MG CAPSULE (FP) PO PRN ×2 (10:06→14:15)
[2016-11-08] MEDS: ACETAMINOPHEN 325 MG TABLET (FP) PO PRN ×2 (10:06→21:30)
[2016-11-08] MEDS: LIDOCAINE 5% TOPICAL PATCH TP SCH (10:07)
[2016-11-08] MEDS: AMMONIUM LACTATE 12% LOTION 225 GM BOTTLE TP SCH (10:09)
[2016-11-08] MEDS ORDERED: NAPROXEN 500 MG TABLET (FP) PO ONE (12:03)
--- NOTE | 2016-11-08 13:48 | HP ---
Psychiatrist Admission - Data Date of interview: 11/08/16 Admission source: 3N Identifying data: This is the third 5N inpatient rehabilitation admission for this 51 year old single unemployed and currently homeless male. Medical History: HIV+/AIDS,BPH, Hep C, GERD, Asthma, chronic back pain. Psychiatric History: Patient reports first psychotic episode about 31 years ago when he found out he is infected with virus, reports admited to the hospital in [place], reports several subsequent hospitalizations 7-8, recetly visited ER at [facility], was 24 hours under observation and referrred to [facility] for detox. Reports he sees at [facility] and currently on Abilify 5m g po hs and Elavil 25 mng po hs. Patient Physical/Sexual Abuse/Trauma History: Patient denies history of sexual, physical and verbal abuse. Vital Signs: Vital Signs - 24 hr 11/08/16 11/08/16 11/08/16 00:30 03:29 07:09 Temperature 97.6 F Pulse Rate 79 Respiratory 18 18 18 Rate Blood Pressure 119/78 Allergies/Adverse Reactions: Allergies Allergy/AdvReac Type Severity Reaction Status Date / Time No Known Allergies Allergy Verified 11/07/16 11:50 Date of last physical exam: 11/02/16 Concur with the findings of this exam: Yes - Substance Abuse/Tx History Hx Alcohol Use: Yes (40oz 6 pack. ) Hx Substance Use: Yes Substance Use Type: Alcohol, Cocaine (injecting with heroin daily use for $20), Heroin (20 bags a day injecting ), Marijuana ("sometimes") Hx Substance Use Treatment: Yes - Admission Criteria Previous failed treatment: Yes Poor recovery environment: Yes Comorbidities: Yes Lacks judgement: Yes Mental Status Exam - Mental Status Exam Alert and Oriented to: Time, Place, Person Cognitive Function: Grossly Intact Patient Appearance: Well Groomed Mood: Sad, Anxious Patient Behavior: Appropriate, Cooperative Speech Pattern: Clear, Appropriate Voice Loudness: Normal Thought Process: Intact, Goal Oriented Thought Disorder: Not Present Hallucinations: Denies, Auditory ( 2 weeks ago heard "no one love you, calling my name".) Suicidal Ideation: Denies Homicidal Ideation: Denies Insight/Judgement: Good Sleep: Poorly Appetite: Poor (10 lbs in 6 weeks.), Weight loss Psychiatric Findings - Problem List (Goodell 1, 2,3) (1) AIDS (acquired immune deficiency syndrome) Current Visit: No Status: Acute (2) Alcohol dependence Current Visit: No Status: Acute (3) Asthma Current Visit: No Status: Acute Qualifiers: Asthma severity: mild intermittent Asthma complication type: with status asthmaticus Qualified Code(s): J45.22 - Mild intermittent asthma with status asthmaticus (4) BPH (benign prostatic hyperplasia) Current Visit: No Status: Acute (5) Cellulitis of right forearm Current Visit: No Status: Acute (6) GERD (gastroesophageal reflux disease) Current Visit: No Status: Acute Qualifiers: Esophagitis presence: without esophagitis Qualified Code(s): K21.9 - Gastro-esophageal reflux disease without esophagitis (7) Opioid dependence Current Visit: Yes Status: Acute (8) Cocaine dependence Current Visit: Yes Status: Acute (9) Schizoaffective disorder Current Visit: Yes Status: Acute (10) Cannabis abuse Current Visit: Yes Status: Acute - Initial Treatment Plan Initial Treatment Plan: will continue Abilify 5 mg po hs and Elavil 25 mg po hs , monitor progress as needed.
[2016-11-08] MEDS: CYCLOBENZAPRINE HCL 10 MG TABLET (FP) PO PRN (14:15)
[2016-11-08] MEDS: MAG HYDROX/AL HYDROX/SIMETH 30 ML UNIT-DOSE CUP PO PRN (19:46)
[2016-11-08] MEDS: AMITRIPTYLINE HCL 25 MG TABLET (FP) PO SCH (21:29)
[2016-11-08] MEDS: ARIPiprazole 5 MG TABLET (FP) PO SCH (21:29)
[2016-11-08] MEDS: NAPROXEN 500 MG TABLET (FP) PO SCH (21:30)
[2016-11-08] MEDS: THIAMINE HCL 100 MG TABLET (FP) PO SCH (21:30)
[2016-11-09] MEDS: hydrOXYzine PAMOATE 50 MG CAPSULE (FP) PO PRN (09:55)
[2016-11-09] MEDS: TAMSULOSIN HCL 0.4 MG CAP.ER.24H (FP) PO SCH (09:55)
[2016-11-09] MEDS: PRENATAL VITAMINS W/ FOLIC ACID TABLET (FP) PO SCH (09:55)
[2016-11-09] MEDS: NAPROXEN 500 MG TABLET (FP) PO SCH (09:55)
[2016-11-09] MEDS: LIDOCAINE 5% TOPICAL PATCH TP SCH (09:57)
[2016-11-09] MEDS: AMMONIUM LACTATE 12% LOTION 225 GM BOTTLE TP SCH (09:59)
[2016-11-09] MEDS ORDERED: cloNIDine HCL 0.1 MG TABLET PO ONE (17:15)
[2016-11-09] MEDS ORDERED: GABAPENTIN 300 MG CAPSULE (FP) PO ONE (17:30)
[2016-11-09] MEDS: ACETAMINOPHEN 325 MG TABLET (FP) PO PRN (17:32)
[2016-11-09] MEDS: cloNIDine HCL 0.1 MG TABLET PO SCH (21:39)
[2016-11-09] MEDS: AMITRIPTYLINE HCL 25 MG TABLET (FP) PO SCH (21:39)
[2016-11-09] MEDS: ARIPiprazole 5 MG TABLET (FP) PO SCH (21:39)
[2016-11-09] MEDS: GABAPENTIN 100 MG CAPSULE (FP) PO SCH (21:40)
[2016-11-09] MEDS: THIAMINE HCL 100 MG TABLET (FP) PO SCH (21:40)
[2016-11-09] MEDS ORDERED: GABAPENTIN 100 MG CAPSULE (FP) PO SCH (22:00)
[2016-11-10] MEDS: GABAPENTIN 100 MG CAPSULE (FP) PO SCH ×3 (06:22→21:14)
[2016-11-10] MEDS: LIDOCAINE 5% TOPICAL PATCH TP SCH (09:51)
[2016-11-10] MEDS: PRENATAL VITAMINS W/ FOLIC ACID TABLET (FP) PO SCH (09:51)
[2016-11-10] MEDS: SELENIUM SULFIDE 2.5% LOTION 4 OZ. TP SCH (09:51)
[2016-11-10] MEDS: cloNIDine HCL 0.1 MG TABLET PO SCH ×2 (09:51→21:15)
[2016-11-10] MEDS: TAMSULOSIN HCL 0.4 MG CAP.ER.24H (FP) PO SCH (09:51)
[2016-11-10] MEDS: AMMONIUM LACTATE 12% LOTION 225 GM BOTTLE TP SCH (09:56)
[2016-11-10] MEDS: IBUPROFEN 600 MG TABLET (FP) PO PRN ×2 (09:56→17:33)
[2016-11-10] MEDS: MAG HYDROX/AL HYDROX/SIMETH 30 ML UNIT-DOSE CUP PO PRN (16:08)
[2016-11-10] MEDS: CYCLOBENZAPRINE HCL 10 MG TABLET (FP) PO PRN ×2 (16:08→21:15)
[2016-11-10] MEDS: ARIPiprazole 5 MG TABLET (FP) PO SCH (21:14)
[2016-11-10] MEDS: AMITRIPTYLINE HCL 25 MG TABLET (FP) PO SCH (21:14)
[2016-11-10] MEDS: THIAMINE HCL 100 MG TABLET (FP) PO SCH (21:15)
[2016-11-10] MEDS: ACETAMINOPHEN 325 MG TABLET (FP) PO PRN (21:15)
[2016-11-11] MEDS: GABAPENTIN 100 MG CAPSULE (FP) PO SCH (06:32)
[2016-11-11] MEDS: CYCLOBENZAPRINE HCL 10 MG TABLET (FP) PO PRN ×2 (06:34→18:04)
[2016-11-11] MEDS: PRENATAL VITAMINS W/ FOLIC ACID TABLET (FP) PO SCH (09:55)
[2016-11-11] MEDS: hydrOXYzine PAMOATE 50 MG CAPSULE (FP) PO PRN (09:55)
[2016-11-11] MEDS: cloNIDine HCL 0.1 MG TABLET PO SCH ×2 (09:55→21:27)
[2016-11-11] MEDS: TAMSULOSIN HCL 0.4 MG CAP.ER.24H (FP) PO SCH (09:55)
[2016-11-11] MEDS: IBUPROFEN 600 MG TABLET (FP) PO PRN (09:57)
[2016-11-11] MEDS: LIDOCAINE 5% TOPICAL PATCH TP SCH (09:58)
[2016-11-11] MEDS: AMMONIUM LACTATE 12% LOTION 225 GM BOTTLE TP SCH (09:59)
[2016-11-11] MEDS: SELENIUM SULFIDE 2.5% LOTION 4 OZ. TP SCH (10:00)
[2016-11-11] MEDS: METHYL SALICYLATE/MENTHOL OINT 30 GM TUBE TP SCH ×2 (13:18→21:27)
[2016-11-11] MEDS: COLLOIDAL OATMEAL 1 BAR EACH TP PRN (13:18)
[2016-11-11] MEDS: GABAPENTIN 400 MG CAPSULE (FP) PO SCH ×2 (14:13→21:27)
[2016-11-11] MEDS: AMITRIPTYLINE HCL 25 MG TABLET (FP) PO SCH (21:27)
[2016-11-11] MEDS: ARIPiprazole 5 MG TABLET (FP) PO SCH (21:27)
[2016-11-11] MEDS: THIAMINE HCL 100 MG TABLET (FP) PO SCH (21:27)
[2016-11-12] MEDS: GABAPENTIN 400 MG CAPSULE (FP) PO SCH ×3 (06:28→21:37)
[2016-11-12] MEDS: CYCLOBENZAPRINE HCL 10 MG TABLET (FP) PO PRN (06:29)
[2016-11-12] MEDS: AMMONIUM LACTATE 12% LOTION 225 GM BOTTLE TP SCH (09:39)
[2016-11-12] MEDS: LIDOCAINE 5% TOPICAL PATCH TP SCH (09:39)
[2016-11-12] MEDS: METHYL SALICYLATE/MENTHOL OINT 30 GM TUBE TP SCH ×2 (09:42→21:37)
[2016-11-12] MEDS: PRENATAL VITAMINS W/ FOLIC ACID TABLET (FP) PO SCH (09:42)
[2016-11-12] MEDS: TAMSULOSIN HCL 0.4 MG CAP.ER.24H (FP) PO SCH (09:42)
[2016-11-12] MEDS: cloNIDine HCL 0.1 MG TABLET PO SCH ×2 (09:42→21:37)
[2016-11-12] MEDS: SELENIUM SULFIDE 2.5% LOTION 4 OZ. TP SCH (09:43)
[2016-11-12] MEDS: MAG HYDROX/AL HYDROX/SIMETH 30 ML UNIT-DOSE CUP PO PRN (14:14)
[2016-11-12] MEDS: THIAMINE HCL 100 MG TABLET (FP) PO SCH (21:36)
[2016-11-12] MEDS: AMITRIPTYLINE HCL 25 MG TABLET (FP) PO SCH (21:37)
[2016-11-12] MEDS: ARIPiprazole 5 MG TABLET (FP) PO SCH (21:37)
[2016-11-13] MEDS: CYCLOBENZAPRINE HCL 10 MG TABLET (FP) PO PRN (06:21)
[2016-11-13] MEDS: GABAPENTIN 400 MG CAPSULE (FP) PO SCH ×3 (06:21→21:34)
[2016-11-13] MEDS: TAMSULOSIN HCL 0.4 MG CAP.ER.24H (FP) PO SCH (09:00)
[2016-11-13] MEDS: METHYL SALICYLATE/MENTHOL OINT 30 GM TUBE TP SCH ×2 (10:46→21:34)
[2016-11-13] MEDS: SELENIUM SULFIDE 2.5% LOTION 4 OZ. TP SCH (10:46)
[2016-11-13] MEDS: AMMONIUM LACTATE 12% LOTION 225 GM BOTTLE TP SCH (10:47)
[2016-11-13] MEDS: LIDOCAINE 5% TOPICAL PATCH TP SCH (10:47)
[2016-11-13] MEDS: PRENATAL VITAMINS W/ FOLIC ACID TABLET (FP) PO SCH (10:47)
[2016-11-13] MEDS: cloNIDine HCL 0.1 MG TABLET PO SCH ×2 (10:47→21:34)
[2016-11-13] MEDS: IBUPROFEN 600 MG TABLET (FP) PO PRN (19:55)
[2016-11-13] MEDS: ARIPiprazole 5 MG TABLET (FP) PO SCH (21:34)
[2016-11-13] MEDS: THIAMINE HCL 100 MG TABLET (FP) PO SCH (21:34)
[2016-11-13] MEDS: AMITRIPTYLINE HCL 25 MG TABLET (FP) PO SCH (21:35)
[2016-11-14] MEDS: GABAPENTIN 400 MG CAPSULE (FP) PO SCH ×3 (06:50→21:48)
[2016-11-14] MEDS: TAMSULOSIN HCL 0.4 MG CAP.ER.24H (FP) PO SCH (07:41)
[2016-11-14] MEDS: PRENATAL VITAMINS W/ FOLIC ACID TABLET (FP) PO SCH (09:55)
[2016-11-14] MEDS: cloNIDine HCL 0.1 MG TABLET PO SCH ×2 (09:55→21:50)
[2016-11-14] MEDS: METHYL SALICYLATE/MENTHOL OINT 30 GM TUBE TP SCH ×3 (09:55→23:07)
[2016-11-14] MEDS: LIDOCAINE 5% TOPICAL PATCH TP SCH (09:56)
[2016-11-14] MEDS: SELENIUM SULFIDE 2.5% LOTION 4 OZ. TP SCH (09:59)
[2016-11-14] MEDS: AMMONIUM LACTATE 12% LOTION 225 GM BOTTLE TP SCH (09:59)
[2016-11-14] MEDS: MAG HYDROX/AL HYDROX/SIMETH 30 ML UNIT-DOSE CUP PO PRN (17:43)
[2016-11-14] MEDS: AMITRIPTYLINE HCL 25 MG TABLET (FP) PO SCH (21:49)
[2016-11-14] MEDS: ARIPiprazole 5 MG TABLET (FP) PO SCH (21:49)
[2016-11-14] MEDS: diphenhydrAMINE HCL 50 MG CAPSULE PO PRN (21:50)
[2016-11-14] MEDS: THIAMINE HCL 100 MG TABLET (FP) PO SCH (21:51)
[2016-11-14] MEDS: CYCLOBENZAPRINE HCL 10 MG TABLET (FP) PO PRN (23:08)
[2016-11-15] MEDS: GABAPENTIN 400 MG CAPSULE (FP) PO SCH ×3 (06:22→21:47)
[2016-11-15] MEDS: PRENATAL VITAMINS W/ FOLIC ACID TABLET (FP) PO SCH (10:02)
[2016-11-15] MEDS: METHYL SALICYLATE/MENTHOL OINT 30 GM TUBE TP SCH ×2 (10:02→21:47)
[2016-11-15] MEDS: TAMSULOSIN HCL 0.4 MG CAP.ER.24H (FP) PO SCH (10:04)
[2016-11-15] MEDS: cloNIDine HCL 0.1 MG TABLET PO SCH ×2 (10:06→21:48)
[2016-11-15] MEDS: AMMONIUM LACTATE 12% LOTION 225 GM BOTTLE TP SCH (10:07)
[2016-11-15] MEDS: LIDOCAINE 5% TOPICAL PATCH TP SCH (10:09)
[2016-11-15] MEDS: SELENIUM SULFIDE 2.5% LOTION 4 OZ. TP SCH (10:13)
[2016-11-15] MEDS: CYCLOBENZAPRINE HCL 10 MG TABLET (FP) PO PRN (14:13)
[2016-11-15] MEDS: IBUPROFEN 600 MG TABLET (FP) PO PRN (20:04)
[2016-11-15] MEDS: ARIPiprazole 5 MG TABLET (FP) PO SCH (21:47)
[2016-11-15] MEDS: THIAMINE HCL 100 MG TABLET (FP) PO SCH (21:48)
[2016-11-15] MEDS: AMITRIPTYLINE HCL 25 MG TABLET (FP) PO SCH (21:48)
[2016-11-15] MEDS: COLLOIDAL OATMEAL 1 BAR EACH TP PRN (22:12)
[2016-11-16] MEDS: CYCLOBENZAPRINE HCL 10 MG TABLET (FP) PO PRN (06:14)
[2016-11-16] MEDS: GABAPENTIN 400 MG CAPSULE (FP) PO SCH (06:14)
[2016-11-16 07:18] VITALS: BP 119/79; PULSE 97; TEMP 98.3
[2016-11-16] MEDS: TAMSULOSIN HCL 0.4 MG CAP.ER.24H (FP) PO SCH (07:46)
[2016-11-16] MEDS: IBUPROFEN 600 MG TABLET (FP) PO PRN (07:47)
[2016-11-16] MEDS: cloNIDine HCL 0.1 MG TABLET PO SCH (09:46)
[2016-11-16] MEDS: PRENATAL VITAMINS W/ FOLIC ACID TABLET (FP) PO SCH (09:46)
[2016-11-16] MEDS: METHYL SALICYLATE/MENTHOL OINT 30 GM TUBE TP SCH (09:47)
[2016-11-16] MEDS: AMMONIUM LACTATE 12% LOTION 225 GM BOTTLE TP SCH (09:49)
[2016-11-16] MEDS: LIDOCAINE 5% TOPICAL PATCH TP SCH (09:50)
[2016-11-16] MEDS: SELENIUM SULFIDE 2.5% LOTION 4 OZ. TP SCH (09:50)
--- NOTE | 2016-11-16 09:59 | PN ---
Psychiatric Progress Note Vital Signs: Vital Signs Period Temp Pulse Resp BP Sys/Ferro Pulse Ox Last 24 Hr 98.3 F 67-97 14-18 119/79 Date of Session: 11/16/16 Chief Complaint:: discharge visit HPI: Patient has addressed alcohol, opioid, cocaine , nicotine use comorbid Schizoaffective disorder. ROS: HIV+/AIDS,BPH, Hep C, GERD, Asthma, chronic back pain medically managed. Current Medications: Active Medications Generic Name Dose Route Start Last Admin Trade Name Freq PRN Reason Stop Dose Admin Acetaminophen 650 mg 11/07/16 12:04 11/10/16 21:15 Tylenol - PO 650 mg Q4H PRN Administration FEVER OR PAIN Al Hydroxide/Mg Hydroxide 30 ml 11/07/16 12:04 11/14/16 17:43 Mylanta Oral Suspension - PO 30 ml Q6H PRN Administration DYSPEPSIA Albuterol Sulfate 2 puff 11/07/16 12:05 11/13/16 05:20 Ventolin Hfa Inhaler - IH 2 puff Q4H PRN Administration SHORT OF BREATH/WHEEZING Amitriptyline HCl 25 mg 11/08/16 22:00 11/15/16 21:48 Elavil - PO Not Given HS MORELIA Aripiprazole 5 mg 11/07/16 22:00 11/15/16 21:47 Abilify PO 5 mg HS MORELIA Administration Clonidine 0.1 mg 11/09/16 22:00 11/16/16 09:46 Catapres - PO 0.1 mg BID MORELIA Administration Colloidal Oatmeal 1 applic 11/09/16 15:55 11/15/16 22:12 Aveeno Soap - TP 1 bar DAILY PRN Administration HYGEINE Cyclobenzaprine HCl 10 mg 11/08/16 12:03 11/16/16 06:14 Flexeril - PO 10 mg TID PRN Administration BACK PAIN Diphenhydramine HCl 50 mg 11/07/16 12:04 11/14/16 21:50 Benadryl - PO 50 mg HSMR1 PRN Administration FOR ITCHING Eucalyptus/Menthol/Phenol/Sorbitol 1 each 11/07/16 12:04 Cepastat Lozenge - MM Q4H PRN SORE THROAT Gabapentin 400 mg 11/11/16 14:00 11/16/16 06:14 Neurontin - PO 400 mg TID MORELIA Administration Guaifenesin 10 ml 11/07/16 12:04 Robitussin Dm - PO Q6H PRN COUGH Hydroxyzine Pamoate 50 mg 11/07/16 12:04 11/11/16 09:55 Vistaril - PO 50 mg Q4H PRN Administration AGITATION Ibuprofen 600 mg 11/09/16 15:53 11/16/16 07:47 Motrin - PO 600 mg Q6H PRN Administration FEVER Lactic Acid 1 applic 11/08/16 10:00 11/16/16 09:49 Lac-Hydrin 12 TP 1 applic DAILY MORELIA Administration Lidocaine 3 patch 11/11/16 11:43 11/16/16 09:50 Lidoderm Patch - TP Not Given DAILY MORELIA Loperamide HCl 4 mg 11/07/16 12:04 11/14/16 17:43 Imodium - PO 4 mg Q6H PRN Administration DIARRHEA Magnesium Hydroxide 30 ml 11/07/16 12:04 Milk Of Magnesia - PO DAILY PRN CONSTIPATION Methyl Salicylate 1 applic 11/11/16 12:00 11/16/16 09:47 Vic-Rodgers - TP 1 appful BID MORELIA Administration Multivit/Folic Acid/Iron 1 tab 11/08/16 10:00 11/16/16 09:46 Vitamins (Sjr) - PO 1 tab DAILY MORELIA Administration Pseudoephedrine/Triprolidine 1 combo 11/07/16 12:04 11/15/16 16:35 Actifed - PO 1 combo TID PRN Administration NASAL CONGESTION Selenium Sulfide 1 applic 11/10/16 10:00 11/16/16 09:50 Selsun 2.5% Lotion - TP 11/16/16 15:56 1 applic DAILY MORELIA Administration Senna 2 tab 11/07/16 12:06 Senna - PO HS PRN CONSTIPATION Tamsulosin HCl 0.4 mg 11/08/16 08:30 11/16/16 07:46 Flomax - PO 0.4 mg DAILY@0830 MORELIA Administration Thiamine HCl 100 mg 11/07/16 22:00 11/15/16 21:48 Vitamin B1 - PO 100 mg HS MORELIA Administration Current Side Effect: No Lab tests ordered: No Lab tests reviewed: Yes Provider note:: Patient has completed today his treatment and met his identified goals, he will continue to address his issues at the next level of care. He focused on importance to maintain abstinence and utilize all supports available to prevent relapses. Patient gained insight into the negatve consequences of alcohol and drugs over major life areas (mental, physical, vocational and interpersonal).Abilfy and Elavil have been effective in terms of mood stabilization and sleep improvement. Medication well tolerated, scripts provided for 30 days. Patient is stable for discharge. Total face to face time:: 35 Mental Status Exam - Mental Status Exam Alert and Oriented to: Time, Place, Person Cognitive Function: Grossly Intact Patient Appearance: Well Groomed Mood: Hopeful Affect: Appropriate, Mood Congruent Patient Behavior: Appropriate, Cooperative Speech Pattern: Clear, Appropriate Voice Loudness: Normal Thought Process: Intact, Goal Oriented Thought Disorder: Not Present Hallucinations: Denies Suicidal Ideation: Denies Homicidal Ideation: Denies Insight/Judgement: Fair Sleep: Fair Appetite: Fair Muscle strength/Tone: Normal Gait/Station: Normal Psychiatric Treatment Plan - Problem List (1) AIDS (acquired immune deficiency syndrome) Current Visit: No (2) Alcohol dependence Current Visit: No (3) Asthma Current Visit: No Qualifiers: Asthma severity: mild intermittent Asthma complication type: with status asthmaticus Qualified Code(s): J45.22 - Mild intermittent asthma with status asthmaticus (4) BPH (benign prostatic hyperplasia) Current Visit: No (5) Cellulitis of right forearm Current Visit: No (6) GERD (gastroesophageal reflux disease) Current Visit: No Qualifiers: Esophagitis presence: without esophagitis Qualified Code(s): K21.9 - Gastro-esophageal reflux disease without esophagitis (7) Opioid dependence Current Visit: Yes (8) Cocaine dependence Current Visit: Yes (9) Schizoaffective disorder Current Visit: Yes (10) Cannabis abuse Current Visit: Yes
== END 2016-11-16 11:30 | disposition home or self-care (01) | DRG 772 ==
LOC: YASAS 11:21 → Y5N 11:23
PROVIDERS: ADMIT Psychiatry & Neurology Psychiatry; ATTEND Psychiatry & Neurology Psychiatry
PROC: HZ42ZZZ Group Counseling for Substance Abuse Treatment, Cognitive-Behavioral (ICD-10-PCS; principal; 2016-11-16)
DX: F11.20 Opioid dependence, uncomplicated (principal); F10.20 Alcohol dependence, uncomplicated; F14.20 Cocaine dependence, uncomplicated; F12.10 Cannabis abuse, uncomplicated; F25.9 Schizoaffective disorder, unspecified; B20 Human immunodeficiency virus [HIV] disease; J45.22 Mild intermittent asthma with status asthmaticus; K21.9 Gastro-esophageal reflux disease without esophagitis

== ENCOUNTER 2016-12-14 11:19 | Inpatient (IN) | payer OTHER ==
[2016-12-14 11:48] VITALS: BMI 20.2
--- NOTE | 2016-12-14 14:35 | HP ---
CIWA Score - CIWA Score Nausea/Vomitin-No Nausea/No Vomiting Muscle Tremors: 4-Moderate,w/Arms Extend Anxiety: 4-Mod. Anxious/Guarded Agitation: 4-Moderately Restless Paroxysmal Sweats: 1-Minimal Palms Moist Orientation: 0-Oriented Tacttile Disturbances: 3-Moderate Itch/Numb/Burn Auditory Disturbances: 0-None Visual Disturbances: 0-None Headache: 0-None Present CIWA-Ar Total Score: 16 Admission ROS [facility] - HPI Chief Complaint: DETOX TX FOR ALCOHOL AND BENZO DEPENDENCE Allergies/Adverse Reactions: Allergies Allergy/AdvReac Type Severity Reaction Status Date / Time No Known Allergies Allergy Verified 12/14/16 12:10 History of Present Illness: 51 Y/O H/M WITH A HX OF ALCOHOL AND XANAX/KLONOPIN DEPENDENCE SEEKING DETOX TX. PT ON [facility]. Exam Limitations: No Limitations - Ebola screening Have you traveled outside of the country in the last 21 days: No Have you had contact with anyone from an Ebola affected area: No Have you been sick,other than usual withdrawal symptoms: No Do you have a fever: No - Review of Systems Constitutional: Chills, Loss of Appetite, Night Sweats, Changes in sleep, Unintentional Wgt. Loss EENT: reports: Blurred Vision (WEARS GLASSES), Tearing, Nose Congestion, Dental Problems (MISSING TEETH) Respiratory: reports: Shortness of Breath (HX ASTHMA), Wheezing Cardiac: reports: Lightheadedness GI: reports: Constipated, Poor Appetite, Poor Fluid Intake : reports: Dysuria, Other (BPH--ON FLOMAX) Musculoskeletal: reports: Back Pain, Joint Pain, Muscle Pain Integumentary: reports: Bruising (IVD INJ SITES ON BOTH FOREARMS), Dryness Neuro: reports: Headache Endocrine: reports: No Symptoms Reported Hematology: reports: No Symptoms Reported Psychiatric: reports: Orientated x3, Anxious Other Systems: Reviewed and Negative Patient History - Patient Medical History Hx Anemia: No Hx Asthma: Yes (Pt is on MDI) Hx Chronic Obstructive Pulmonary Disease (COPD): No Hx Cancer: No Hx Cardiac Disorders: No Hx Congestive Heart Failure: No Hx Hypertension: No Hx Hypercholesterolemia: No Hx Pacemaker: No HX Cerebrovascular Accident: No Hx Seizures: No Hx Dementia: No Hx Diabetes: No Hx Gastrointestinal Disorders: Yes (NEXIUM) Hx Liver Disease: No Hx Genitourinary Disorders: No Hx Sexually Transmitted Disorders: No Hx Renal Disease (ESRD): No Hx Thyroid Disease: No Hx Human Immunodeficiency Virus (HIV): Yes (SINCE 1984;ON ATRIPLA BUT NONCOMPLIANT X 1 MONTH OR MORE.) Hx Hepatitis C: Yes Hx Depression: Yes ([facility]) Hx Suicide Attempt: No (DENIES) Hx Bipolar Disorder: No Hx Schizophrenia: Yes - Patient Surgical History Past Surgical History: No Hx Neurologic Surgery: No Hx Cataract Extraction: No Hx Cardiac Surgery: No Hx Lung Surgery: No Hx Breast Surgery: No Hx Breast Biopsy: No Hx Abdominal Surgery: No Hx Appendectomy: No Hx Cholecystectomy: No Hx Genitourinary Surgery: No Hx Section: No Hx Orthopedic Surgery: No Hx Hysterectomy: No Anesthesia Reaction: No - PPD History Previous Implant?: Yes (TREATMENT FOR ONE YEAR) Documented Results: Positive w/proof Implanted On Prior [facility] Admission?: No Results: CXR(-)11/03/16 PPD to be Administered?: No - Reproductive History Patient is a Female of Child Bearing Age (11 -55 yrs old): No (MALE) Patient : No - Smoking Cessation Smoking history: Current every day smoker Have you smoked in the past 12 months: Yes Aproximately how many cigarettes per day: 5 Cigars Per Day: 0 Hx Chewing Tobacco Use: No Initiated information on smoking cessation: Yes 'Breaking Loose' booklet given: 12/14/16 - Substance & Tx. History Hx Alcohol Use: Yes (BEER) Hx Substance Use: Yes (HEROIN/XANAX/KLONOPIN/COCAINE) Substance Use Type: Alcohol, Cocaine, Heroin, Tranquilizers Hx Substance Use Treatment: Yes ([facility]-DETOX) - Substances Abused Alcohol Route: Oral Frequency: Daily Amount used: 6-12PK BEER Age of first use: 12 Date of Last Use: 12/14/16 Benzodiazepine (Klonopin) Route: Oral Frequency: Daily Amount used: 1MG Age of first use: 12 Date of Last Use: 12/12/16 Cocaine Route: Injection Frequency: Daily Amount used: 10 BAGS Age of first use: 12 Date of Last Use: 12/13/16 Heroin Route: Injection Frequency: Daily Amount used: 10 BAGS Age of first use: 12 Date of Last Use: 03/07/17 Family Disease History - Family Disease History Family Disease History: Diabetes: Mother () Admission Physical Exam [facility] - Vital Signs Vital Signs: Vital Signs - 24 hr 12/14/16 11:46 Temperature 97.5 F L Pulse Rate 92 H Respiratory 18 Rate Blood Pressure 123/94 - Physical General Appearance: Yes: Alcohol on Breath, Intoxicated, Thin, Irritable, Anxious HEENTM: Yes: EOMI, HEATHER, Pharynx Normal Respiratory: Yes: Chest Non-Tender, Lungs Clear, Normal Breath Sounds, No Respiratory Distress Neck: Yes: Supple, Trachea in good position Breast: Yes: Breast Exam Deferred Cardiology: Yes: Regular Rhythm, Regular Rate, S1, S2 Abdominal: Yes: Normal Bowel Sounds, Non Tender, Soft Genitourinary: Yes: Other (N/C) Back: Yes: Within Normal Limits Musculoskeletal: Yes: full range of Motion, Gait Steady Extremities: Yes: Normal Range of Motion, Non-Tender Neurological: Yes: human resources trainer II-XII NML intact, Fully Oriented, Alert Integumentary: Yes: Dry, Warm, Track Patel (BOTH FOREARMS--NO REDNESS/SWELLING) Lymphatic: Yes: Within Normal Limits - Diagnostic (1) AIDS (acquired immune deficiency syndrome) Current Visit: No Status: Acute (2) Alcohol dependence with uncomplicated withdrawal Current Visit: Yes Status: Chronic (3) Asthma Current Visit: No Status: Acute Qualifiers: Asthma severity: mild intermittent Asthma complication type: with status asthmaticus Qualified Code(s): J45.22 - Mild intermittent asthma with status asthmaticus (4) BPH (benign prostatic hyperplasia) Current Visit: Yes Status: Chronic Qualifiers: Prostatic enlargement morphology: unspecified morphology (5) GERD (gastroesophageal reflux disease) Current Visit: Yes Status: Chronic Qualifiers: Esophagitis presence: without esophagitis Qualified Code(s): K21.9 - Gastro-esophageal reflux disease without esophagitis (6) Nicotine dependence Current Visit: Yes Status: Acute Qualifiers: Nicotine product type: cigarettes Substance use status: in withdrawal Qualified Code(s): F17.213 - Nicotine dependence, cigarettes, with withdrawal (7) Weight loss Current Visit: Yes Status: Chronic (8) Hepatitis C antibody test positive Current Visit: Yes Status: Chronic (9) Methadone maintenance therapy patient Current Visit: Yes Status: Chronic (10) Sedative, hypnotic or anxiolytic dependence with withdrawal, uncomplicated Current Visit: Yes Status: Acute Cleared for Admission [facility] - Detox or Rehab [facility] Level of Care: Medically Managed Detox Regimen/Protocol: Valium [facility] Breath Alcohol Content Breath Alcohol Content: 0.023 Urine Drug Screen - Results Drug Screen Negative: No Urine Drug Screen Results: EMILIA-Cocaine, OPI-Opiates, BZO-Benzodiazepines, MTD- Methadone
[2016-12-14] MEDS ORDERED: MAG HYDROX/AL HYDROX/SIMETH 30 ML UNIT-DOSE CUP PO PRN (14:51)
[2016-12-14] MEDS ORDERED: guaiFENesin/D-METHORPHAN HB 10 ML UNIT-DOSE CUPS PO PRN (14:51)
[2016-12-14] MEDS ORDERED: NICOTINE POLACRILEX 2 MG GUM BUC PRN (14:51)
[2016-12-14] MEDS ORDERED: LOPERAMIDE HCL 2 MG CAPSULE PO PRN (14:51)
[2016-12-14] MEDS ORDERED: hydrOXYzine PAMOATE 25 MG CAPSULE (FP) PO PRN (14:51)
[2016-12-14] MEDS ORDERED: MENTHOL/PHENOL 1 EACH UD MM PRN (14:51)
[2016-12-14] MEDS ORDERED: P-EPHED 60MG/TRIPROLIDI 2.5MG TABLET PO PRN (14:51)
[2016-12-14] MEDS ORDERED: diphenhydrAMINE HCL 50 MG CAPSULE PO PRN (14:51)
[2016-12-14] MEDS ORDERED: MAGNESIUM CITRATE 300 ML BOTTLE PO PRN (14:51)
[2016-12-14] MEDS ORDERED: MAGNESIUM HYDROX 2400MG/30ML ORAL SUSPENSION 30 ML CUP PO PRN (14:51)
[2016-12-14] MEDS ORDERED: ACETAMINOPHEN 325 MG TABLET (FP) PO PRN (14:51)
[2016-12-14] MEDS ORDERED: diazePAM 5 MG TABLET PO ONE (15:02)
[2016-12-14] MEDS: GABAPENTIN 300 MG CAPSULE (FP) PO SCH ×2 (17:23→22:15)
[2016-12-14] MEDS: PANTOPRAZOLE 40 MG TABLET (FP) PO SCH (17:23)
[2016-12-14] MEDS: NICOTINE 14 MG/24 HOURS TOPICAL PATCH TD SCH (17:23)
[2016-12-14] MEDS: ALBUTEROL SO4 6.7 GM HFA INHALER IH SCH ×3 (17:24→22:16)
[2016-12-14] MEDS: TAMSULOSIN HCL 0.4 MG CAP.ER.24H (FP) PO SCH (17:27)
[2016-12-14] MEDS: AMMONIUM LACTATE 12% LOTION 225 GM BOTTLE TP SCH (18:56)
[2016-12-14] MEDS: COLLOIDAL OATMEAL 1 BAR EACH TP SCH (18:56)
[2016-12-14 20:59] LABS: URINE APPEARANCE CLEAR; URINE BILIRUBIN NEGATIVE (NEGATIVE); URINE BLOOD NEGATIVE (NEGATIVE); URINE COLOR YELLOW; URINE GLUCOSE (UA) NEGATIVE (NEGATIVE); URINE KETONE NEGATIVE (NEGATIVE); URINE LEUK ESTERASE NEGATIVE (NEGATIVE); URINE NITRITE NEGATIVE (NEGATIVE); URINE UROBILINOGEN NEGATIVE E.U./dl (0.2-1.0)
[2016-12-14 21:08] LABS: URINE PROTEIN 1+ (NEGATIVE)
[2016-12-14 21:11] LABS: URINE MUCUS RARE; URINE RBC 2 /hpf (0-3); URINE WBC <1 /hpf (3-5)
[2016-12-14] MEDS: THIAMINE HCL 100 MG TABLET (FP) PO SCH (22:14)
[2016-12-14] MEDS: diazePAM 5 MG TABLET PO SCH (22:14)
[2016-12-15] MEDS: diazePAM 5 MG TABLET PO SCH ×3 (05:50→22:41)
[2016-12-15] MEDS: GABAPENTIN 300 MG CAPSULE (FP) PO SCH ×2 (05:51→14:32)
[2016-12-15] MEDS: ALBUTEROL SO4 6.7 GM HFA INHALER IH SCH ×5 (07:10→22:42)
[2016-12-15] MEDS ORDERED: METHADONE HCL 10 MG TABLET PO ONE (09:54)
[2016-12-15 10:00] LABS: ALBUMIN 4.2 g/dl (3.4-5.0); ANION GAP 6 (8-16); CALCIUM 9.6 mg/dL (8.5-10.1); CO2 31 mmol/L (21-32); GLUCOSE,RANDOM 88 mg/dL (74-106)
[2016-12-15 10:03] LABS: MCH 26.4 pg (25.7-33.7); MCHC 32.9 g/dl (32.0-35.9); MEAN CELL VOLUME 80.2 fl (80-96); PLATELET COUNT 134 K/MM3 (134-434); RDW 14.8 % (11.9-15.9); WHITE BLOOD COUNT 3.6 K/mm3 (4.0-10.0)
--- NOTE | 2016-12-15 10:03 | PN ---
S CIWA - CIWA Score Nausea/Vomitin-No Nausea/No Vomiting Muscle Tremors: 4-Moderate,w/Arms Extend Anxiety: 3 Agitation: 4-Moderately Restless Paroxysmal Sweats: 3 Orientation: 0-Oriented Tacttile Disturbances: 0-None Auditory Disturbances: 0-None Visual Disturbances: 0-None Headache: 2-Mild CIWA-Ar Total Score: 16 BHS Progress Note (SOAP) Subjective: shakes sweats interrupted sleep agitation anxiety body aches Objective: 12/15/16 10:01 Vital Signs Temperature 97 F L 12/15/16 09:46 Pulse Rate 90 12/15/16 09:46 Respiratory Rate 16 12/15/16 09:46 Blood Pressure 137/93 12/15/16 09:46 O2 Sat by Pulse Oximetry (%) Laboratory Tests 12/14/16 19:00 Urine Color Yellow Urine Appearance Clear Urine pH 6.0 Ur Specific [place] 1.016 Urine Protein 1+ H Urine Glucose (UA) Negative Urine Ketones Negative Urine Blood Negative Urine Nitrite Negative Urine Bilirubin Negative Urine Urobilinogen Negative Ur Leukocyte Esterase Negative Urine RBC 2 Urine WBC <1 Ur Epithelial Cells Rare Urine Mucus Rare labs pending awake/alert ambulating no acute distress Assessment: 12/15/16 10:02 withdrawal sx Plan: continue detox increase fluids labs pending
[2016-12-15 10:04] LABS: ALK PHOS 99 U/L (45-117); BILIRUBIN,TOTAL 0.4 mg/dL (0.2-1.0); SGOT/AST 49 U/L (15-37); SGPT/ALT 46 U/L (12-78); TOT PROT 8.3 g/dl (6.4-8.2)
[2016-12-15] MEDS ORDERED: METHADONE 30 MG, METHADONE 5 MG PO ONE (10:05)
[2016-12-15] MEDS ORDERED: METHADONE HCL 10 MG TABLET ONE (10:10)
[2016-12-15] MEDS ORDERED: METHADONE HCL 5 MG TABLET ONE (10:10)
[2016-12-15] MEDS: NICOTINE 14 MG/24 HOURS TOPICAL PATCH TD SCH (10:45)
[2016-12-15] MEDS: PANTOPRAZOLE 40 MG TABLET (FP) PO SCH (10:46)
[2016-12-15] MEDS: TAMSULOSIN HCL 0.4 MG CAP.ER.24H (FP) PO SCH (10:47)
[2016-12-15] MEDS: PRENATAL VITAMINS W/ FOLIC ACID TABLET (FP) PO SCH (10:48)
[2016-12-15] MEDS: diazePAM 5 MG TABLET PO PRN (10:52)
[2016-12-15] MEDS: IBUPROFEN 400 MG TABLET (FP) PO PRN (10:52)
--- NOTE | 2016-12-15 13:41 | CONSULT ---
[facility] Psychiatric Consult - Data Date of interview: 12/15/16 Admission source: [facility] Identifying data: This is 51 years old male with psychiatric hospitalization history intoxicated with: Alcohol, Cannbais, Opioids and Nicotine Substance Abuse History: - Smoking Cessation. Smoking history: Current every day smoker. Have you smoked in the past 12 months: Yes. Aproximately how many cigarettes per day: 5. Cigars Per Day: 0. Hx Chewing Tobacco Use: No. Initiated information on smoking cessation: Yes. 'Breaking Loose' booklet given : 12/14/16. - Substance & Tx. History. Hx Alcohol Use: Yes (BEER). Hx Substance Use: Yes (HEROIN/XANAX/KLONOPIN/COCAINE). Substance Use Type: Alcohol , Cocaine, Heroin, Tranquilizers. Hx Substance Use Treatment: Yes ([facility]) . - Substances Abused. Alcohol. Route: Oral. Frequency: Daily. Amount used: 6-12PK BEER. Age of first use: 12. Date of Last Use: 12/14/16. Benzodiazepine (Klonopin). Route: Oral. Frequency: Daily. Amount used: 1MG. Age of first use: 12. Date of Last Use: 12/12/16. Cocaine. Route: Injection. Frequency: Daily. Amount used: 10 BAGS. Age of first use: 12. Date of Last Use: 12/13/16. Heroin. Route: Injection. Frequency: Daily. Amount used: 10 BAGS. Age of first use: 12. Date of Last Use: 12/13/16 Medical History: BPH, GERD, HepC+, AIDS, Weight loss history, HIV, Cellulitis history, PPD+ history Psychiatric History: Patient reports to carry Schizoaffective disorder with most recent psychiatric admission for safety on 2016 at [facility]. Patient reports taking prior to admission: Abilify 5mg po qhs. Elavil 25mg po qhs. Ambien 10mg po qhs. Gabapentin 800mg po tid Physical/Sexual Abuse/Trauma History: Denies Additional Comment: Abilify 5mg po qhs. Elavil 25mg po qhs. Ambien 10mg po qhs. Gabapentin 800mg po tid Mental Status Exam - Mental Status Exam Alert and Oriented to: Person Cognitive Function: Fair Patient Appearance: Well Groomed Mood: Anxious Affect: Mood Congruent Patient Behavior: Cooperative Speech Pattern: Appropriate Voice Loudness: Mildly Loud Thought Process: Goal Oriented Thought Disorder: Being Controlled Hallucinations: Denies Suicidal Ideation: Denies Homicidal Ideation: Denies Insight/Judgement: Fair Sleep: Difficulty falling asleep Appetite: Weight loss Muscle strength/Tone: Normal Gait/Station: Normal Additional Comments: Abilify 5mg po qhs. Elavil 25mg po qhs. Ambien 10mg po qhs. Gabapentin 800mg po tid Psychiatric Findings - Problem List (Searcy 1, 2,3) (1) Nicotine dependence Current Visit: Yes Status: Acute Qualifiers: Nicotine product type: cigarettes Substance use status: in withdrawal Qualified Code(s): F17.213 - Nicotine dependence, cigarettes, with withdrawal (2) Alcohol dependence with uncomplicated withdrawal Current Visit: Yes Status: Chronic (3) Cannabis abuse Current Visit: No Status: Acute (4) Cocaine dependence Current Visit: No Status: Acute (5) Drug-induced mood disorder Current Visit: No Status: Acute (6) Opioid dependence Current Visit: No Status: Acute (7) Schizoaffective disorder Current Visit: No Status: Acute - Initial Treatment Plan Initial Treatment Plan: Abilify 5mg po qhs. Elavil 25mg po qhs. Ambien 10mg po qhs. Gabapentin 800mg po tid
[2016-12-15] MEDS: LIDOCAINE 5% TOPICAL PATCH TP SCH (14:29)
[2016-12-15] MEDS: GABAPENTIN 400 MG CAPSULE (FP) PO SCH ×2 (15:11→22:41)
--- NOTE | 2016-12-15 15:59 | EKG ---
Test Reason : Blood Pressure : / mmHG Vent. Rate : 085 BPM Atrial Rate : 085 BPM P-R Int : 114 ms QRS Dur : 086 ms QT Int : 380 ms P-R-T Axes : 070 065 049 degrees QTc Int : 452 ms NORMAL SINUS RHYTHM NORMAL ECG WHEN COMPARED WITH ECG OF 02-NOV-2016 20:04, NONSPECIFIC T WAVE ABNORMALITY NOW EVIDENT IN ANTERIOR LEADS Confirmed by ERMELINDA YU, SHADE ([id number]) on 12/15/2016 3:58:47 PM Referred By: Confirmed By:SHADE WDASWORTH MD
[2016-12-15] MEDS: ARIPiprazole 5 MG TABLET (FP) PO SCH (22:41)
[2016-12-15] MEDS: ZOLPIDEM TARTRATE 10 MG TABLET (PARK CARE ONLY) PO PRN (22:41)
[2016-12-15] MEDS: THIAMINE HCL 100 MG TABLET (FP) PO SCH (22:41)
[2016-12-16] MEDS: ALBUTEROL SO4 6.7 GM HFA INHALER IH SCH ×6 (03:39→23:03)
[2016-12-16] MEDS ORDERED: METHADONE HCL 10 MG TABLET ONE (04:50)
[2016-12-16] MEDS ORDERED: METHADONE HCL 5 MG TABLET ONE (04:51)
[2016-12-16] MEDS: METHADONE 30 MG, METHADONE 5 MG PO SCH (05:12)
[2016-12-16] MEDS: GABAPENTIN 400 MG CAPSULE (FP) PO SCH ×3 (05:14→23:03)
[2016-12-16] MEDS: diazePAM 5 MG TABLET PO PRN ×3 (05:38→18:25)
[2016-12-16] MEDS ORDERED: METHADONE HCL 40 MG DISPERSABLE TABLET PO SCH (06:00)
[2016-12-16] MEDS: diazePAM 5 MG TABLET PO SCH ×2 (10:47→23:03)
[2016-12-16] MEDS: PANTOPRAZOLE 40 MG TABLET (FP) PO SCH (10:47)
[2016-12-16] MEDS: PRENATAL VITAMINS W/ FOLIC ACID TABLET (FP) PO SCH (10:47)
[2016-12-16] MEDS: TAMSULOSIN HCL 0.4 MG CAP.ER.24H (FP) PO SCH (10:47)
[2016-12-16] MEDS: LIDOCAINE 5% TOPICAL PATCH TP SCH (10:51)
[2016-12-16] MEDS: NICOTINE 14 MG/24 HOURS TOPICAL PATCH TD SCH (10:52)
--- NOTE | 2016-12-16 10:56 | PN ---
[facility] CIWA - CIWA Score Nausea/Vomitin-No Nausea/No Vomiting Muscle Tremors: 4-Moderate,w/Arms Extend Anxiety: 3 Agitation: 3 Paroxysmal Sweats: 3 Orientation: 0-Oriented Tacttile Disturbances: 0-None Auditory Disturbances: 0-None Visual Disturbances: 0-None Headache: 0-None Present CIWA-Ar Total Score: 13 S Progress Note (SOAP) Subjective: dry skin sweats shakes interrupted sleep Objective: 12/16/16 10:55 Vital Signs Temperature 97.9 F 12/16/16 10:00 Pulse Rate 104 H 12/16/16 10:00 Respiratory Rate 16 12/16/16 10:00 Blood Pressure 126/79 12/16/16 10:00 O2 Sat by Pulse Oximetry (%) Laboratory Tests 12/14/16 12/14/16 12/15/16 13:00 19:00 06:00 WBC 3.6 L RBC 4.81 Hgb 12.7 Hct 38.6 MCV 80.2 MCHC 32.9 RDW 14.8 Plt Count 134 D MPV 9.0 D Sodium Potassium Chloride Carbon Dioxide Anion Gap BUN Creatinine Creat Clearance w eGFR Random Glucose Calcium Total Bilirubin AST ALT Alkaline Phosphatase Total Protein Albumin Urine Color Yellow Urine Appearance Clear Urine pH 6.0 Ur Specific [place] 1.016 Urine Protein 1+ H Urine Glucose (UA) Negative Urine Ketones Negative Urine Blood Negative Urine Nitrite Negative Urine Bilirubin Negative Urine Urobilinogen Negative Ur Leukocyte Esterase Negative Urine RBC 2 Urine WBC <1 Ur Epithelial Cells Rare Urine Mucus Rare RPR Titer Hepatitis C Antibody >11.0 H 12/15/16 12/15/16 06:00 06:00 WBC RBC Hgb Hct MCV MCHC RDW Plt Count MPV Sodium 139 Potassium 4.0 Chloride 102 Carbon Dioxide 31 Anion Gap 6 L BUN 17 Creatinine 1.0 Creat Clearance w eGFR > 60 Random Glucose 88 Calcium 9.6 Total Bilirubin 0.4 D AST 49 H D ALT 46 Alkaline Phosphatase 99 D Total Protein 8.3 H Albumin 4.2 Urine Color Urine Appearance Urine pH Ur Specific [place] Urine Protein Urine Glucose (UA) Urine Ketones Urine Blood Urine Nitrite Urine Bilirubin Urine Urobilinogen Ur Leukocyte Esterase Urine RBC Urine WBC Ur Epithelial Cells Urine Mucus RPR Titer Nonreactive Hepatitis C Antibody awake/alert ambulating no acute distress Assessment: 12/16/16 10:56 withdrawal sx Plan: continue detox increase fluids aveeno soap prn
[2016-12-16] MEDS ORDERED: COLLOIDAL OATMEAL 1 BAR EACH TP PRN (10:57)
[2016-12-16] MEDS: AMMONIUM LACTATE 12% LOTION 225 GM BOTTLE TP SCH (12:32)
[2016-12-16] MEDS: COLLOIDAL OATMEAL 1 BAR EACH TP SCH (12:59)
[2016-12-16] MEDS: ZOLPIDEM TARTRATE 10 MG TABLET (PARK CARE ONLY) PO PRN (23:03)
[2016-12-16] MEDS: THIAMINE HCL 100 MG TABLET (FP) PO SCH (23:03)
[2016-12-16] MEDS: ARIPiprazole 5 MG TABLET (FP) PO SCH (23:03)
[2016-12-16] MEDS: IBUPROFEN 400 MG TABLET (FP) PO PRN (23:06)
[2016-12-17] MEDS: diazePAM 5 MG TABLET PO PRN (02:13)
[2016-12-17] MEDS ORDERED: METHADONE HCL 10 MG TABLET ONE (04:49)
[2016-12-17] MEDS ORDERED: METHADONE HCL 5 MG TABLET ONE (04:49)
[2016-12-17] MEDS: METHADONE 30 MG, METHADONE 5 MG PO SCH (06:46)
[2016-12-17] MEDS: GABAPENTIN 400 MG CAPSULE (FP) PO SCH ×3 (06:47→22:25)
[2016-12-17] MEDS: ALBUTEROL SO4 6.7 GM HFA INHALER IH SCH ×6 (06:48→22:25)
[2016-12-17] MEDS: TAMSULOSIN HCL 0.4 MG CAP.ER.24H (FP) PO SCH (07:52)
[2016-12-17] MEDS: PRENATAL VITAMINS W/ FOLIC ACID TABLET (FP) PO SCH (10:16)
[2016-12-17] MEDS: NICOTINE 14 MG/24 HOURS TOPICAL PATCH TD SCH (10:16)
[2016-12-17] MEDS: LIDOCAINE 5% TOPICAL PATCH TP SCH (10:18)
[2016-12-17] MEDS: PANTOPRAZOLE 40 MG TABLET (FP) PO SCH (10:18)
[2016-12-17] MEDS: diazePAM 5 MG TABLET PO SCH ×2 (10:18→22:25)
[2016-12-17] MEDS: AMMONIUM LACTATE 12% LOTION 225 GM BOTTLE TP SCH (10:20)
--- NOTE | 2016-12-17 10:57 | PN ---
[facility] Progress Note (SOAP) Subjective: Sweating,interrupted sleep,restless,tremors,anxiety Objective: 12/17/16 10:56 Vital Signs - 8 hr 12/17/16 12/17/16 03:30 06:00 Temperature 96.4 F L Pulse Rate 91 H Respiratory 18 18 Rate Blood Pressure 137/91 Laboratory Last Values WBC 3.6 K/mm3 (4.0-10.0) L 12/15/16 06:00 RBC 4.81 M/mm3 (4.00-5.60) 12/15/16 06:00 Hgb 12.7 GM/dL (11.7-16.9) 12/15/16 06:00 Hct 38.6 % (35.4-49) 12/15/16 06:00 MCV 80.2 fl (80-96) 12/15/16 06:00 MCHC 32.9 g/dl (32.0-35.9) 12/15/16 06:00 RDW 14.8 % (11.9-15.9) 12/15/16 06:00 Plt Count 134 K/MM3 (134-434) D 12/15/16 06:00 MPV 9.0 fl (7.5-11.1) D 12/15/16 06:00 Sodium 139 mmol/L (136-145) 12/15/16 06:00 Potassium 4.0 mmol/L (3.5-5.1) 12/15/16 06:00 Chloride 102 mmol/L (98-107) 12/15/16 06:00 Carbon Dioxide 31 mmol/L (21-32) 12/15/16 06:00 Anion Gap 6 (8-16) L 12/15/16 06:00 BUN 17 mg/dL (7-18) 12/15/16 06:00 Creatinine 1.0 mg/dL (0.7-1.3) 12/15/16 06:00 Creat Clearance w eGFR > 60 (>60) 12/15/16 06:00 Random Glucose 88 mg/dL (74-106) 12/15/16 06:00 Calcium 9.6 mg/dL (8.5-10.1) 12/15/16 06:00 Total Bilirubin 0.4 mg/dL (0.2-1.0) D 12/15/16 06:00 AST 49 U/L (15-37) H D 12/15/16 06:00 ALT 46 U/L (12-78) 12/15/16 06:00 Alkaline Phosphatase 99 U/L (45-117) D 12/15/16 06:00 Total Protein 8.3 g/dl (6.4-8.2) H 12/15/16 06:00 Albumin 4.2 g/dl (3.4-5.0) 12/15/16 06:00 Urine Color Yellow 12/14/16 19:00 Urine Appearance Clear 12/14/16 19:00 Urine pH 6.0 (5.0-8.0) 12/14/16 19:00 Ur Specific [place] 1.016 (1.001-1.035) 12/14/16 19:00 Urine Protein 1+ (NEGATIVE) H 12/14/16 19:00 Urine Glucose (UA) Negative (NEGATIVE) 12/14/16 19:00 Urine Ketones Negative (NEGATIVE) 12/14/16 19:00 Urine Blood Negative (NEGATIVE) 12/14/16 19:00 Urine Nitrite Negative (NEGATIVE) 12/14/16 19:00 Urine Bilirubin Negative (NEGATIVE) 12/14/16 19:00 Urine Urobilinogen Negative E.U./dl (0.2-1.0) 12/14/16 19:00 Ur Leukocyte Esterase Negative (NEGATIVE) 12/14/16 19:00 Urine RBC 2 /hpf (0-3) 12/14/16 19:00 Urine WBC <1 /hpf (3-5) 12/14/16 19:00 Ur Epithelial Cells Rare /hpf (FEW) 12/14/16 19:00 Urine Mucus Rare 12/14/16 19:00 RPR Titer Nonreactive (NONREACTIVE) 12/15/16 06:00 Hepatitis C Antibody >11.0 s/co ratio (0.0-0.9) H 12/14/16 13:00 labs noted Assessment: 12/17/16 10:57 Withdrawal sx. Plan: continue detox
[2016-12-17] MEDS: ZOLPIDEM TARTRATE 10 MG TABLET (PARK CARE ONLY) PO PRN (22:24)
[2016-12-17] MEDS: ARIPiprazole 5 MG TABLET (FP) PO SCH (22:24)
[2016-12-17] MEDS: THIAMINE HCL 100 MG TABLET (FP) PO SCH (22:25)
[2016-12-18] MEDS: ALBUTEROL SO4 6.7 GM HFA INHALER IH SCH ×2 (04:36→06:28)
[2016-12-18] MEDS ORDERED: METHADONE HCL 5 MG TABLET ONE (05:14)
[2016-12-18] MEDS ORDERED: METHADONE HCL 10 MG TABLET ONE (05:14)
[2016-12-18 06:19] VITALS: BP 136/85; PULSE 91; TEMP 98.1
[2016-12-18] MEDS: METHADONE 30 MG, METHADONE 5 MG PO SCH (06:21)
[2016-12-18] MEDS: GABAPENTIN 400 MG CAPSULE (FP) PO SCH (06:22)
[2016-12-18] MEDS: IBUPROFEN 400 MG TABLET (FP) PO PRN (06:26)
--- NOTE | 2016-12-18 08:09 | PN ---
S Progress Note (SOAP) Subjective: ALERT,NO COMPLAINT Objective: 12/18/16 08:08 Vital Signs Temperature 98.1 F 12/18/16 06:00 Pulse Rate 91 H 12/18/16 06:00 Respiratory Rate 16 12/18/16 06:00 Blood Pressure 136/85 12/18/16 06:00 O2 Sat by Pulse Oximetry (%) Assessment: 12/18/16 08:09 DETOX COMPLETED.NO WITHDRAWAL SYMPTOM Plan: DISCHARGE TODAY,FOLLOW UP WITH AFTER CARE PROGRAM ARRANGEMENT
--- NOTE | 2016-12-18 08:10 | DS ---
[facility] Detox Discharge Summary Admission Date: 12/14/16 Discharge Date: 12/18/16 - History Present History: Alcohol Dependence, Cocaine Dependence, Sedative Dependence, MMTP Additional Comments: FOLLOW UP WITH AFTER CARE PROGRAM ARRANGEMENT AND PMD FOR MEDICAL PROBLEM PATIENT HAS MEDICATIONS AT HOME Pertinent Past History: BPH ASTHMA - Physical Exam Results Vital Signs: Vital Signs Temperature 98.1 F 12/18/16 06:00 Pulse Rate 91 H 12/18/16 06:00 Respiratory Rate 16 12/18/16 06:00 Blood Pressure 136/85 12/18/16 06:00 O2 Sat by Pulse Oximetry (%) Pertinent Admission Physical Exam Findings: WITHDRAWAL SYMPTOM - Treatment Hospital Course: Detox Protocol Followed, Detoxed Safely, Responded well, Discharged Condition Good, Rehab Referral Accepted Patient has Accepted a Rehab Referral to: [facility] - Medication Discharge Medications: Ambulatory Orders Esomeprazole Mag Trihydrate [Nexium] 20 mg PO DAILY 04/26/15 Efavirenz/Emtricitab/Tenofovir [Atripla Tablet -] 1 tab PO DAILY #7 tab Raltegravir [Isentress] 400 mg PO BID #14 tab 05/12/15 Albuterol Sulfate Inhaler - [Ventolin Hfa Inhaler -] 2 inh PO Q4H 11/02/16 Tamsulosin HCl [Flomax] 0.4 mg PO DAILY 11/02/16 Zolpidem Tartrate [Ambien] 10 mg PO HS #14 tablet MDD 10 11/03/16 Amitriptyline HCl [Elavil -] 25 mg PO HS #30 tablet 11/16/16 Aripiprazole [Abilify -] 5 mg PO HS #30 tablet 11/16/16 Gabapentin [Neurontin -] 600 mg PO Q8H 12/14/16 Meloxicam [Mobic] 30 mg PO DAILY 12/14/16 Amitriptyline HCl [Elavil -] 25 mg PO HS #30 tablet 12/15/16 Amitriptyline HCl [Elavil -] 25 mg PO HS #30 tablet 12/15/16 Amitriptyline HCl [Elavil -] 25 mg PO HS #30 tablet 12/15/16 Aripiprazole [Abilify -] 5 mg PO HS #30 tablet 12/15/16 Aripiprazole [Abilify] 5 mg PO HS #30 tablet 12/15/16 Aripiprazole [Abilify] 5 mg PO HS #30 tablet 12/15/16 Gabapentin [Neurontin -] 800 mg PO TID #90 12/15/16 Gabapentin [Neurontin [DO NOT STOCK]] 800 mg GT TID #90 tablet 12/15/16 Gabapentin [Neurontin [DO NOT STOCK]] 800 mg PO TID #90 tablet 12/15/16 Gabapentin [Neurontin] 100 mg PO TID #90 capsule 12/15/16 Zolpidem Tartrate [Ambien] 0 mg PO HS #14 tablet MDD 10 12/15/16 Zolpidem Tartrate [Ambien] 10 mg PO HS #14 tablet MDD 10 12/15/16 Zolpidem Tartrate [Ambien] 10 mg PO HS #14 tablet MDD 10 12/15/16 Zolpidem Tartrate [Ambien] 10 mg PO HS #14 tablet MDD 10 12/15/16 - AMA Did Patient Leave Against Medical Advice: No
[2016-12-18] MEDS ORDERED: diazePAM 5 MG TABLET PO ONE (08:19)
[2016-12-18] MEDS: TAMSULOSIN HCL 0.4 MG CAP.ER.24H (FP) PO SCH (08:51)
[2016-12-18] MEDS ORDERED: diazePAM 5 MG TABLET PO SCH (10:00)
== END 2016-12-18 09:10 | disposition home or self-care (01) | DRG 773 ==
LOC: YASAS 11:19 → Y6N 13:01
PROVIDERS: ADMIT Internal Medicine Addiction Medicine; ATTEND Internal Medicine Addiction Medicine
PROC: HZ2ZZZZ Detoxification Services for Substance Abuse Treatment (ICD-10-PCS; principal; 2016-12-18)
DX: F11.20 Opioid dependence, uncomplicated (principal); F13.230 Sedative, hypnotic or anxiolytic dependence with withdrawal, uncomplicated; F10.230 Alcohol dependence with withdrawal, uncomplicated; F14.20 Cocaine dependence, uncomplicated; F17.213 Nicotine dependence, cigarettes, with withdrawal; F12.10 Cannabis abuse, uncomplicated; F19.24 Other psychoactive substance dependence with psychoactive substance-induced mood disorder; F25.9 Schizoaffective disorder, unspecified; J45.22 Mild intermittent asthma with status asthmaticus; K21.9 Gastro-esophageal reflux disease without esophagitis; B20 Human immunodeficiency virus [HIV] disease; B18.2 Chronic viral hepatitis C; N40.0 Benign prostatic hyperplasia without lower urinary tract symptoms; R63.4 Abnormal weight loss; Z68.20 Body mass index [BMI] 20.0-20.9, adult
CPT/HCPCS: 36415; 80053; 81003; 81015; 85027; 86593; 93005; 93010

== ENCOUNTER 2018-05-14 15:23 | Inpatient (IN) | payer OTHER ==
--- NOTE | 2018-05-14 16:13 | PDOC ---
*Physical Exam - Vital Signs Last Vital Signs Temp Pulse Resp BP Pulse Ox 98.2 F 70 16 141/81 98 05/14/18 15:30 05/14/18 15:30 05/14/18 15:30 05/14/18 15:30 05/14/18 15:30 ED Treatment Course - LABORATORY CBC & Chemistry Diagram: 05/16/18 08:40 05/16/18 08:40 Medical Decision Making - Medical Decision Making 05/14/18 16:13 Pt seen by Midlevel Provider under my direct supervision Pt interviewed and examined Ancillary studies reviewed I agree with plan as outlined by Midlevel Provider *DC/Admit/Observation/Transfer Diagnosis at time of Disposition: Heroin dependence, HIV (human immunodeficiency virus infection), Abscess - Discharge Dispostion Condition at time of disposition: Fair - Referrals - Patient Instructions - Post Discharge Activity
--- NOTE | 2018-05-14 16:14 | PDOC ---
History of Present Illness - General Chief Complaint: Wound Stated Complaint: CELLULITIS Time Seen by Provider: 05/14/18 16:01 History Source: Patient Exam Limitations: No Limitations - History of Present Illness Initial Comments: 05/14/18 18:33 Patient is a 52-year-old male with past medical history of HIV, cirrhosis, IV drug use (heroin) , cocaine use, who presents to emergency department today for abscesses and rash to his left wrist and left lower leg. Patient states he last used heroin last night. He does not know how long he's had the abscesses for. Denies shooting up in these areas. States that the leg is painful to the touch. Is currently asking for food. Sent over from [facility] for evaluation. Denies fevers, chills, shortness of breath, difficulty breathing, chest pain, nausea, vomiting and diarrhea. Past History - Travel Traveled outside of the country in the last 30 days: No Close contact w/someone who was outside of country & ill: No - Past Medical History Allergies/Adverse Reactions: Allergies Allergy/AdvReac Type Severity Reaction Status Date / Time No Known Allergies Allergy Verified 05/14/18 18:46 Home Medications: Ambulatory Orders NK [No Known Home Medication] 05/14/18 Anemia: No Asthma: Yes Cancer: No Cardiac Disorders: No CVA: No COPD: No CHF: No Dementia: No Diabetes: No GI Disorders: No Disorders: No HTN: No Hypercholesterolemia: No Kidney Stones: No Liver Disease: No Psychiatric Problems: Yes Seizures: No Thyroid Disease: No - Surgical History Abdominal Surgery: No Appendectomy: No Cardiac Surgery: No Cholecystectomy: No Lung Surgery: No Neurologic Surgery: No Orthopedic Surgery: No - Reproductive History Testicular Surgery: No - Suicide/Smoking/Psychosocial Hx Smoking History: Current every day smoker Have you smoked in the past 12 months: Yes Number of Cigarettes Smoked Daily: 5 Cigars Per Day: 0 Information on smoking cessation initiated: No 'Breaking Loose' booklet given: 12/14/16 Hx Alcohol Use: No Drug/Substance Use Hx: No Substance Use Type: Alcohol, Cocaine, Heroin Hx Substance Use Treatment: Yes Review of Systems - Review of Systems Able to Perform ROS?: Yes Comments:: 05/14/18 18:31 CONSTITUTIONAL: Absent: fever, chills, diaphoresis, generalized weakness, malaise, loss of appetite HEENT: Absent: rhinorrhea, nasal congestion, throat pain, throat swelling, difficulty swallowing, mouth swelling, ear pain, eye pain, visual Changes CARDIOVASCULAR: Absent: chest pain, loss of consciousness, palpitations, irregular heart rate, peripheral edema RESPIRATORY: Absent: cough, shortness of breath, dyspnea with exertion, orthopnea, wheezing, stridor, hemoptysis GASTROINTESTINAL: Absent: abdominal pain, abdominal distension, nausea, vomiting, diarrhea, constipation, melena, hematochezia GENITOURINARY: Absent: dysuria, frequency, urgency, hesitancy, hematuria, flank pain, genital pain MUSCULOSKELETAL: Present: L leg pain Absent: myalgia, arthralgia, joint swelling SKIN: Present: abscess to L wrist and L posterior calf with redness. Absent: itching, pallor HEMATOLOGIC/IMMUNOLOGIC: Absent: easy bleeding, easy bruising, lymphadenopathy, frequent infections ENDOCRINE: Absent: unexplained weight gain, unexplained weight loss, heat intolerance, cold intolerance NEUROLOGIC: Absent: headache, focal weakness or paresthesias, dizziness, unsteady gait, seizure, mental status changes, bladder or bowel incontinence PSYCHIATRIC: Absent: anxiety, depression, suicidal or homicidal ideation, hallucinations. Is the patient limited Niuean proficient: No *Physical Exam - Vital Signs Last Vital Signs Temp Pulse Resp BP Pulse Ox 98.2 F 70 16 141/81 98 05/14/18 15:30 05/14/18 15:30 05/14/18 15:30 05/14/18 15:30 05/14/18 15:30 - Physical Exam Comments: 05/14/18 18:32 GENERAL: Well developed, well nourished. Awake and alert. No acute distress. HEENT: Normocephalic, atraumatic. PERRLA, EOMI. No conjunctival pallor. Sclera are non- icteric. Moist mucous membranes. Oropharynx is clear. NECK: Supple. Full ROM. No JVD. Carotid pulses 2+ and symmetric, without bruits. No thyromegaly. No lymphadenopathy. CARDIOVASCULAR: Regular rate and rhythm. No murmurs, rubs, or gallops. Distal pulses are 2+ and symmetric. PULMONARY: No evidence of respiratory distress. Lungs clear to auscultation bilaterally. No wheezing, rales or rhonchi. ABDOMINAL: Soft. Non-tender. Non-distended. No rebound or guarding. No organomegaly. Normoactive bowel sounds. MUSCULOSKELETAL Normal range of motion at all joints. No bony deformities or tenderness. No CVA tenderness. EXTREMITIES: TTP of the L posterior leg around the abscess.No cyanosis. No clubbing. No edema. No calf tenderness. SKIN: Pt with 1 cm round indurated and draining abscess to the L wrist. surronding warmth and streaking. L posterior calf with 0.5cm round draining abscess with streaking up the leg and warmth. Warm and dry. Normal capillary refill. No rashes. No jaundice. NEUROLOGICAL: Alert, awake, appropriate. Cranial nerves 2-12 intact. No deficits to light touch and temperature in face, upper extremities and lower extremities. No motor deficits in the in face, upper extremities and lower extremities. Normoreflexic in the upper and lower extremities. Normal speech. Toes are down- going bilaterally. Gait is normal without ataxia. PSYCHIATRIC: Cooperative. Good eye contact. Appropriate mood and affect. ED Treatment Course - LABORATORY CBC & Chemistry Diagram: 05/16/18 08:40 05/16/18 08:40 Medical Decision Making - Medical Decision Making 05/14/18 18:34 Patient is a 52-year-old male who presents to the emergency department today with abscesses to his left wrist and left posterior lower leg. Both areas have streaking and warmth. Vital signs are currently stable, patient is afebrile. Currently eating a sandwich in the emergency department. Given IV drug use, patient will need IV antibiotics for his abscesses. Anticipate admission at this time. 1.labs 2.IV fluids 3.cultures 4.IV antibiotics 5.reevaluate Sign out given to AMELIA Valerio for further management. Patient is currently pending workup at this time. *DC/Admit/Observation/Transfer Diagnosis at time of Disposition: Heroin dependence, HIV (human immunodeficiency virus infection), Abscess - Discharge Dispostion Condition at time of disposition: Fair - Referrals - Patient Instructions - Post Discharge Activity
[2018-05-14] MEDS ORDERED: SODIUM CHLORIDE 1,000 ML IV STA (17:22)
[2018-05-14] MEDS ORDERED: PIPERACILLIN/TAZOB 3.375 GM 3.375 GM in DEXTROSE 5%-WATER - 50 ML IVPB ONE (17:23)
[2018-05-14] MEDS ORDERED: VANCOMYCIN 1,000 MG in DEXTROSE 5%-WATER - 250 ML IVPB ONE (17:24)
[2018-05-14 19:04] LABS: BASO % 0.2 % (0-2.0); EOS % 1.1 % (0-4.5); HEMATOCRIT 31.4 % (35.4-49); HEMOGLOBIN 10.6 GM/dL (11.7-16.9); LYMPH % 6.9 % (8-40); MCH 26.7 pg (25.7-33.7); MCHC 33.9 g/dl (32.0-35.9); MEAN CELL VOLUME 78.8 fl (80-96); MEAN PLT VOLUME 7.3 fl (7.5-11.1); MONO % 8.4 % (3.8-10.2); NEUT % 83.4 % (42.8-82.8); PLATELET COUNT 177 K/MM3 (134-434); RBC 3.99 M/mm3 (4.00-5.60); RDW 15.2 % (11.9-15.9); WHITE BLOOD COUNT 7.4 K/mm3 (4.0-10.0)
[2018-05-14 19:29] LABS: ALBUMIN 3.1 g/dl (3.4-5.0); ALK PHOS 78 U/L (45-117); ANION GAP 6 (8-16); BILIRUBIN,TOTAL 0.7 mg/dL (0.2-1.0); BLOOD UREA NITROGEN 10 mg/dL (7-18); CALCIUM 8.7 mg/dL (8.5-10.1); CHLORIDE 99 mmol/L (98-107); CO2 32 mmol/L (21-32); CREATININE 0.9 mg/dL (0.7-1.3); GLUCOSE,RANDOM 107 mg/dL (74-106); POTASSIUM 4.1 mmol/L (3.5-5.1); SGOT/AST 38 U/L (15-37); SGPT/ALT 36 U/L (12-78); SODIUM 137 mmol/L (136-145); TOT PROT 7.2 g/dl (6.4-8.2)
[2018-05-14] MEDS ORDERED: VANCOMYCIN 1 GRAM (PRE-DOCKED) 1,000 MG/250 ML BAG IVPB ONE (20:05)
[2018-05-14] MEDS ORDERED: PIPERACILLIN/TAZOB 3.375 GM 3.375 GM/50 ML BAG IVPB ONE (20:05)
[2018-05-14 20:10] LABS: INR 1.12 (0.83-1.09); PROTHROMBIN TIME (PATIENT) 12.7 SEC (9.7-13.0)
[2018-05-14 20:40] LABS: URINE APPEARANCE CLEAR; URINE BILIRUBIN NEGATIVE (<2.0 mg/dL); URINE COLOR LTYELLOW; URINE GLUCOSE (UA) NEGATIVE (NEGATIVE); URINE KETONE NEGATIVE (NEGATIVE); URINE LEUK ESTERASE NEGATIVE (NEGATIVE); URINE NITRITE NEGATIVE (NEGATIVE); URINE PROTEIN NEGATIVE (NEGATIVE); URINE UROBILINOGEN 4.0 E.U/dl mg/dL (0.2-1.0)
--- NOTE | 2018-05-14 21:14 | PDOC ---
*Physical Exam - Vital Signs Last Vital Signs Temp Pulse Resp BP Pulse Ox 99.2 F 69 17 149/100 100 05/14/18 20:52 05/14/18 20:52 05/14/18 20:52 05/14/18 20:52 05/14/18 20:52 ED Treatment Course - LABORATORY CBC & Chemistry Diagram: 05/14/18 18:52 05/14/18 18:52 - ADDITIONAL ORDERS Additional order review: Laboratory Results 05/14/18 05/14/18 05/14/18 20:15 18:52 18:52 PT with INR INR Sodium 137 Potassium 4.1 Chloride 99 Carbon Dioxide 32 Anion Gap 6 L BUN 10 Creatinine 0.9 Creat Clearance w eGFR > 60 Random Glucose 107 H D Lactic Acid 1.4 Calcium 8.7 Total Bilirubin 0.7 AST 38 H D ALT 36 D Alkaline Phosphatase 78 Total Protein 7.2 Albumin 3.1 L Urine Color Ltyellow Urine Appearance Clear Urine pH 8.0 D Ur Specific [place] 1.008 Urine Protein Negative Urine Glucose (UA) Negative Urine Ketones Negative Urine Blood Negative Urine Nitrite Negative Urine Bilirubin Negative Urine Urobilinogen 4.0 e.u/dl Ur Leukocyte Esterase Negative 05/14/18 18:52 PT with INR 12.70 INR 1.12 H Sodium Potassium Chloride Carbon Dioxide Anion Gap BUN Creatinine Creat Clearance w eGFR Random Glucose Lactic Acid Calcium Total Bilirubin AST ALT Alkaline Phosphatase Total Protein Albumin Urine Color Urine Appearance Urine pH Ur Specific [place] Urine Protein Urine Glucose (UA) Urine Ketones Urine Blood Urine Nitrite Urine Bilirubin Urine Urobilinogen Ur Leukocyte Esterase 05/14/18 18:52 RBC 3.99 L MCV 78.8 L MCHC 33.9 RDW 15.2 MPV 7.3 L D Neutrophils % 83.4 H D Lymphocytes % 6.9 L D Monocytes % 8.4 Eosinophils % 1.1 D Basophils % 0.2 - Medications Given in the ED: ED Medications Discontinued Medications Generic Name Dose Route Start Last Admin Trade Name Freq PRN Reason Stop Dose Admin Sodium Chloride 1,000 mls @ 1,000 mls/hr 05/14/18 17:22 05/14/18 20:13 Normal Saline - IV 05/14/18 18:21 1,000 mls/hr ASDIR STA Administration Vancomycin HCl 1,000 mg/ 250 mls @ 166.667 mls/hr 05/14/18 17:24 08/06/18 20: 44 Dextrose IVPB 05/14/18 18:53 166.667 mls/hr ONCE ONE Administration Protocol Piperacillin Sod/Tazobactam 50 mls @ 100 mls/hr 05/14/18 17:23 05/14/18 20:14 Sod 3.375 gm/ Dextrose IVPB 05/14/18 17:52 100 mls/hr ONCE ONE Administration Protocol Progress Note - Progress Note Progress Note: 2057hrs: Called Dr. Calderon/ [phone] 2133hrs: 2nd call; Dr. Calderon called again 2140hrs: Spoke to Dr. Calderon/ID, will see pt in the am. Req surgery consult 2141hrs: Called. Dr. Reeves/surgery roll on man/notified 2141hrs: microblogged Hospitalist....States Dr. Dejan Monroy is covering 2211hrs: Spoke to Dr. Monroy/ will admit *DC/Admit/Observation/Transfer Diagnosis at time of Disposition: Heroin dependence, HIV (human immunodeficiency virus infection), Abscess - Discharge Dispostion Condition at time of disposition: Fair Decision to Admit order: Yes - Referrals - Patient Instructions - Post Discharge Activity
[2018-05-15 03:31] VITALS: BMI 19.3
--- NOTE | 2018-05-15 10:10 | HP ---
Admitting History and Physical - Primary Care Physician PCP: Erik Monroy - Admission History of Present Illness: Patient is a 52-year-old male with past medical history of HIV, cirrhosis, IV drug use (heroin) , cocaine use, who presents to emergency department today for abscesses and rash to his left wrist and left lower leg. Patient states he last used heroin last night. He does not know how long he's had the abscesses for. Denies shooting up in these areas. States that the leg is painful to the touch. Is currently asking for food. Sent over from [facility] for evaluation. Denies fevers, chills, shortness of breath, difficulty breathing, chest pain, nausea, vomiting and diarrhe - Past Medical History Infectious Disease: Yes: HIV - Smoking History Smoking history: Current every day smoker Have you smoked in the past 12 months: Yes Aproximately how many cigarettes per day: 5 - Alcohol/Substance Use Hx Alcohol Use: No Home Medications - Allergies Allergies/Adverse Reactions: Allergies Allergy/AdvReac Type Severity Reaction Status Date / Time No Known Allergies Allergy Verified 05/14/18 18:46 - Home Medications Home Medications: Ambulatory Orders NK [No Known Home Medication] 05/14/18 Family Disease History - Family Disease History Family Disease History: Diabetes: Mother () Physical Examination Vital Signs: Vital Signs Temperature 98.8 F 05/15/18 05:55 Pulse Rate 81 05/15/18 05:55 Respiratory Rate 18 05/15/18 05:55 Blood Pressure 125/88 05/15/18 05:55 O2 Sat by Pulse Oximetry (%) 98 05/15/18 02:44 Constitutional: Yes: No Distress HENT: Yes: Other Cardiovascular: Yes: Regular Rate and Rhythm Respiratory: Yes: CTA Bilaterally Gastrointestinal: Yes: Normal Bowel Sounds Extremities: Yes: Other (left wrist and left calf abcess) Neurological: Yes: Alert, Oriented Labs: CBC, BMP 05/14/18 18:52 05/14/18 18:52 Problem List - Problems (1) Abscess Assessment/Plan: iv abx id on board will get surgery eval Code(s): L02.91 - CUTANEOUS ABSCESS, UNSPECIFIED (2) HIV (human immunodeficiency virus infection) Code(s): Z21 - ASYMPTOMATIC HUMAN IMMUNODEFICIENCY VIRUS INFECTION STATUS (3) Asthma Assessment/Plan: stable Code(s): J45.909 - UNSPECIFIED ASTHMA, UNCOMPLICATED Qualifiers: (4) AIDS (acquired immune deficiency syndrome) Assessment/Plan: not on any meds d/w id Code(s): B20 - HUMAN IMMUNODEFICIENCY VIRUS [HIV] DISEASE Assessment/Plan Laboratory Tests 05/14/18 05/14/18 05/14/18 18:52 18:52 18:52 WBC 7.4 RBC 3.99 L Hgb 10.6 L Hct 31.4 L D MCV 78.8 L MCH 26.7 MCHC 33.9 RDW 15.2 Plt Count 177 D MPV 7.3 L D Absolute Neuts (auto) 6.2 Neutrophils % 83.4 H D Lymphocytes % 6.9 L D Monocytes % 8.4 Eosinophils % 1.1 D Basophils % 0.2 Nucleated RBC % 0 PT with INR 12.70 INR 1.12 H Sodium 137 Potassium 4.1 Chloride 99 Carbon Dioxide 32 Anion Gap 6 L BUN 10 Creatinine 0.9 Creat Clearance w eGFR > 60 Random Glucose 107 H D Lactic Acid Calcium 8.7 Total Bilirubin 0.7 AST 38 H D ALT 36 D Alkaline Phosphatase 78 Total Protein 7.2 Albumin 3.1 L Urine Color Urine Appearance Urine pH Ur Specific [place] Urine Protein Urine Glucose (UA) Urine Ketones Urine Blood Urine Nitrite Urine Bilirubin Urine Urobilinogen Ur Leukocyte Esterase 05/14/18 05/14/18 18:52 20:15 WBC RBC Hgb Hct MCV MCH MCHC RDW Plt Count MPV Absolute Neuts (auto) Neutrophils % Lymphocytes % Monocytes % Eosinophils % Basophils % Nucleated RBC % PT with INR INR Sodium Potassium Chloride Carbon Dioxide Anion Gap BUN Creatinine Creat Clearance w eGFR Random Glucose Lactic Acid 1.4 Calcium Total Bilirubin AST ALT Alkaline Phosphatase Total Protein Albumin Urine Color Ltyellow Urine Appearance Clear Urine pH 8.0 D Ur Specific [place] 1.008 Urine Protein Negative Urine Glucose (UA) Negative Urine Ketones Negative Urine Blood Negative Urine Nitrite Negative Urine Bilirubin Negative Urine Urobilinogen 4.0 e.u/dl Ur Leukocyte Esterase Negative Active Medications Generic Name Dose Route Start Last Admin Trade Name Freq PRN Reason Stop Dose Admin Acetaminophen 650 mg 05/15/18 05:41 Tylenol - PO Q6H PRN PAIN OR FEVER Active Medications Generic Name Dose Route Start Last Admin Trade Name Freq PRN Reason Stop Dose Admin Acetaminophen 650 mg 05/15/18 05:41 05/15/18 13:30 Tylenol - PO 650 mg Q6H PRN Administration PAIN OR FEVER Chlordiazepoxide HCl 25 mg 05/16/18 17:00 Librium - PO 05/17/18 11:01 [id number] [facility] Chlordiazepoxide HCl 15 mg 05/17/18 17:00 Librium - PO 05/18/18 11:01 [id number] [facility] Chlordiazepoxide HCl 10 mg 05/18/18 17:00 Librium - PO 05/19/18 11:01 [id number] [facility] Chlordiazepoxide HCl 25 mg 05/15/18 17:04 Librium - PO 05/18/18 17:04 Q4H PRN WITHDRAWAL(CONT SUBST) Clindamycin HCl 300 mg 05/15/18 19:03 05/16/18 12:31 Cleocin - PO 300 mg Q6HPO [facility] Administration Heparin Sodium (Porcine) 5,000 unit 05/15/18 22:00 05/16/18 09:46 Heparin - SQ 5,000 unit BID [facility] Administration Vancomycin HCl 1 gm in 200 mls @ 133.333 mls/hr 05/15/18 16:00 05/16/18 04:39 Vancomycin 1 Gm Premix - IVPB Not Given Q12H [facility] Protocol Piperacillin Sod/Tazobactam 50 mls @ 100 mls/hr 05/15/18 15:15 05/16/18 12:26 Sod 3.375 gm/ Dextrose IVPB Not Given Q8H-IV [facility] Protocol Lactobacillus Acidophilus 1 tab 05/15/18 19:00 05/16/18 09:45 Bacid - PO 1 tab DAILY [facility] Administration Methadone HCl 15 mg 05/17/18 10:00 Dolophine - PO 05/18/18 10:01 DAILY [facility] Methadone HCl 5 mg 05/20/18 06:00 Dolophine - PO 05/20/18 06:01 DAILY@0600 [facility] Methadone HCl 10 mg 05/19/18 10:00 Dolophine - PO 05/19/18 10:01 DAILY [facility] Nicotine 21 mg 05/16/18 10:00 05/16/18 09:46 Nicoderm Patch - TD 21 mg DAILY [facility] Administration
[2018-05-15] MEDS: ACETAMINOPHEN 325 MG TABLET (FP) PO PRN (13:30)
[2018-05-15] MEDS ORDERED: PIPERACILLIN/TAZOBACTAM 3.375 GM VIAL IVPB ONE (15:21)
[2018-05-15] MEDS ORDERED: DEXTROSE 5%-WATER - 50 ML IVPB ONE (15:22)
--- NOTE | 2018-05-15 15:24 | PN ---
Progress Note (short form) - Note Progress Note: ID consult dictated imp/reccd sent from [facility] for cutaneous abscesses on Left Wrist and left calf history of IVDA- these are injection sites history of Hep C- not treated History of HIV- on Genabdoulaye followed in the [place] for medical care no fevers continue vancomycin and zosyn f/u cultures suggest surgery evaluation tcell count Genvoya is non formulary- patient can resume after discharge from the hospital Problem List - Problems (1) Abscess Code(s): L02.91 - CUTANEOUS ABSCESS, UNSPECIFIED (2) HIV (human immunodeficiency virus infection) Code(s): Z21 - ASYMPTOMATIC HUMAN IMMUNODEFICIENCY VIRUS INFECTION STATUS (3) Substance abuse Code(s): F19.10 - OTHER PSYCHOACTIVE SUBSTANCE ABUSE, UNCOMPLICATED (4) Hepatitis C antibody test positive Code(s): R76.8 - OTHER SPECIFIED ABNORMAL IMMUNOLOGICAL FINDINGS IN SERUM
[2018-05-15] MEDS: PIPERACILLIN/TAZOB 3.375 GM 3.375 GM in DEXTROSE 5%-WATER - 50 ML IVPB SCH ×2 (15:37→18:13)
--- NOTE | 2018-05-15 16:26 | EKG ---
Test Reason : Blood Pressure : / mmHG Vent. Rate : 080 BPM Atrial Rate : 080 BPM P-R Int : 110 ms QRS Dur : 074 ms QT Int : 356 ms P-R-T Axes : 054 052 041 degrees QTc Int : 410 ms SINUS RHYTHM WITH SHORT IA OTHERWISE NORMAL ECG WHEN COMPARED WITH ECG OF 14-DEC-2016 17:33, NONSPECIFIC T WAVE ABNORMALITY NO LONGER EVIDENT IN ANTERIOR LEADS Confirmed by Shlomo Miner MD ([id number]) on 05/15/2018 4:26:38 PM Referred By: Confirmed By:Shlomo Miner MD
[2018-05-15] MEDS ORDERED: chlordiazePOXIDE HCL 25 MG CAPSULE PO PRN (17:04)
--- NOTE | 2018-05-15 17:12 | CONSULT ---
Consult Detox [facility] Reason for Current Admission/Consult: h/o heroin, alcohol and cocaine use- needs detox - History History of Present Illness: pt states he has been using alcohol, heroin and cocaine since he was a teenager. He is admitted for abscesses of arm and legs due to IV injection of heroin. Pt states he is feeling very anxious and is in withdrawal - History Source History Provided By: Patient Limitations to Obtaining History: No Limitations - Alcohol/Substance Use Hx Alcohol Use: Yes Hx Substance Use: Yes Hx Substance Use Treatment: Yes (has been in methadone program) - Current Drug/Alcohol Use Alcohol Amount used: pt states drinks 2 six packs a day, no h/o seizures, DT's. Date of Last Use: 05/13/18 Cocaine Route: Smoking Frequency: Daily Amount used: says uses 20 bags a day Heroin Route: Injection Frequency: Daily Amount used: says uses 20 bags/day - Significant Medical Findings: pt with cachexia, with one open draining abscess of wrist area and non draining abscess of leg COWS - Scale Resting Pulse: 1= IA 81-100 Sweatin= No chills or Flushing Restless Observation: 1= Difficult to Sit Still Pupil Size: 1= Pupils >than Normal Bone or Joint Aches: 2= Severe Diffuse Aches Runny Nose/ Eye Tearin= Nasal Congestion GI Upset > 30mins: 1= Stomach Cramp Tremor Observation: 1= Tremor Armstrong, Not Seen Yawning Observation: 4= Several Times/Minute Anxiety or Irritability: 1=Feels Anxious/Irritable Goose Flesh Skin: 0=Smooth Skin COWS Score: 13 CIWA Score - CIWA Score Nausea/Vomitin-Mild Nausea/No Vomiting Muscle Tremors: 1-None Visible, but Armstrong Anxiety: 1-Mildly Anxious Agitation: 2 Paroxysmal Sweats: 1-Minimal Palms Moist Orientation: 0-Oriented Tacttile Disturbances: 0-None Auditory Disturbances: 0-None Visual Disturbances: 0-None Headache: 0-None Present CIWA-Ar Total Score: 6 Assessment Plan - Diagnosis (1) Abscess Status: Acute (2) Heroin dependence Status: Acute (3) HIV (human immunodeficiency virus infection) Status: Chronic Comment: last dose "months" ago (4) Alcohol dependence with uncomplicated withdrawal Status: Chronic - Plan Plan: 1. Pt states he is in withdrawal and feeling uncomfortable, will start methadone and librium detox protocol. Pt states he wants to stop alcohol use and would like to go to Methadone program in the [facility]. Pt also smokes- nicotine patch ordered - Medication Detox Regimen/Protocol: Methadone/Librium
[2018-05-15] MEDS: VANCOMYCIN 1 GM PREMIX - 1 GM/200 ML BAG IVPB SCH ×2 (17:15→17:37)
[2018-05-15] MEDS: chlordiazePOXIDE HCL 25 MG CAPSULE PO SCH ×2 (17:37→23:19)
[2018-05-15] MEDS ORDERED: METHADONE HCL 10 MG TABLET (FOR DETOX USE ONLY) PO ONE ×2 (17:45→23:00)
[2018-05-15] MEDS ORDERED: METHADONE HCL 10 MG TABLET PO ONE ×2 (18:00→23:00)
[2018-05-15] MEDS ORDERED: CLINDAMYCIN HCL 300 MG CAPSULE PO SCH (19:00)
--- NOTE | 2018-05-15 19:37 | PN ---
Progress Note, Physician - Current Medication List Current Medications: Active Medications Acetaminophen (Tylenol -) 650 mg PO Q6H PRN PRN Reason: PAIN OR FEVER Last Admin: 05/15/18 13:30 Dose: 650 mg Chlordiazepoxide HCl (Librium -) 50 mg PO [id number] [facility] Stop: 05/16/18 11:01 Last Admin: 05/15/18 17:37 Dose: 50 mg Chlordiazepoxide HCl (Librium -) 25 mg PO [id number] [facility] Stop: 05/17/18 11:01 Chlordiazepoxide HCl (Librium -) 15 mg PO [id number] [facility] Stop: 05/18/18 11:01 Chlordiazepoxide HCl (Librium -) 10 mg PO [id number] [facility] Stop: 05/19/18 11:01 Chlordiazepoxide HCl (Librium -) 25 mg PO Q4H PRN PRN Reason: WITHDRAWAL(CONT SUBST) Stop: 05/18/18 17:04 Clindamycin HCl (Cleocin -) 300 mg PO Q6HPO [facility] Heparin Sodium (Porcine) (Heparin -) 5,000 unit SQ BID [facility] Vancomycin HCl (Vancomycin 1 Gm Premix -) 1 gm in 200 mls @ 133.333 mls/hr IVPB Q12H [facility]; Protocol Last Admin: 05/15/18 17:15 Dose: Not Given Piperacillin Sod/Tazobactam (Sod 3.375 gm/ Dextrose) 50 mls @ 100 mls/hr IVPB Q8H-IV [facility]; Protocol Last Admin: 05/15/18 18:13 Dose: Not Given Lactobacillus Acidophilus (Bacid -) 1 tab PO DAILY [facility] Methadone HCl (Dolophine -) 15 mg PO DAILY [facility] Stop: 05/18/18 10:01 Methadone HCl (Dolophine -) 5 mg PO DAILY@0600 [facility] Stop: 05/20/18 06:01 Methadone HCl (Dolophine -) 20 mg PO DAILY [facility] Stop: 05/16/18 10:01 Methadone HCl (Dolophine -) 10 mg PO DAILY [facility] Stop: 05/19/18 10:01 Methadone HCl (Dolophine -) 10 mg PO ONCE@2300 [facility] Stop: 05/15/18 23:01 Nicotine (Nicoderm Patch -) 21 mg TD DAILY [facility] - Objective Vital Signs: Vital Signs Temperature 98.3 F 05/15/18 13:28 Pulse Rate 69 05/15/18 13:28 Respiratory Rate 18 05/15/18 13:28 Blood Pressure 148/90 05/15/18 13:28 O2 Sat by Pulse Oximetry (%) 100 05/15/18 09:00 Constitutional: Yes: No Distress HENT: Yes: Atraumatic Neck: Yes: Supple Cardiovascular: Yes: Regular Rate and Rhythm Respiratory: Yes: CTA Bilaterally Gastrointestinal: Yes: Normal Bowel Sounds Extremities: Yes: Other (abcess on upper /lower extr) Labs: CBC, BMP 05/14/18 18:52 05/14/18 18:52 INR, PTT INR 1.12 (0.83-1.09) H 05/14/18 18:52 Problem List - Problems (1) Abscess Assessment/Plan: iv abx surgery eval for i and d Code(s): L02.91 - CUTANEOUS ABSCESS, UNSPECIFIED (2) HIV (human immunodeficiency virus infection) Code(s): Z21 - ASYMPTOMATIC HUMAN IMMUNODEFICIENCY VIRUS INFECTION STATUS (3) Asthma Assessment/Plan: stable Code(s): J45.909 - UNSPECIFIED ASTHMA, UNCOMPLICATED Qualifiers:
[2018-05-15] MEDS: HEPARIN NA (PORCINE) 5,000 UNITS/ML 1ML VIAL SQ SCH (23:19)
[2018-05-15] MEDS: LACTOBACILLUS ACIDOPHILUS 1 TABLET PO SCH (23:19)
[2018-05-15] MEDS: CLINDAMYCIN HCL 150 MG CAPSULE (FP) PO SCH (23:19)
[2018-05-16] MEDS: PIPERACILLIN/TAZOB 3.375 GM 3.375 GM in DEXTROSE 5%-WATER - 50 ML IVPB SCH ×3 (01:10→17:51)
[2018-05-16] MEDS: VANCOMYCIN 1 GM PREMIX - 1 GM/200 ML BAG IVPB SCH ×2 (04:39→17:48)
[2018-05-16] MEDS: CLINDAMYCIN HCL 150 MG CAPSULE (FP) PO SCH ×4 (05:56→23:12)
[2018-05-16] MEDS: chlordiazePOXIDE HCL 25 MG CAPSULE PO SCH ×4 (05:56→22:51)
--- NOTE | 2018-05-16 09:01 | CONS ---
DATE OF CONSULTATION: DATE OF DICTATION: 05/16/2018 REQUESTED BY: Erik Monroy MD HISTORY OF PRESENT ILLNESS: This is a 52-year-old man with a history of sepsis. He is an injection heroin user and a cocaine user who had self-referred himself (he lives in the [place]) for detox. When he arrived at [facility] he was noted to have multiple abscesses and sent to the emergency room. He has no history of any fevers or chills. He has not been taking any antibiotics. He is followed at a clinic in the [place]. ALLERGIES: He has no known drug allergies. MEDICATIONS: His medication list was not available, though he states he was formerly taking Genvoya. PAST MEDICAL HISTORY: He reports his T-cells are over 200. He has a history of longstanding HIV, asthma and in the past he was hospitalized here once for a skin and soft tissue infection in 2014. He has a history of depression and anxiety. Positive PPD, status post INH for 1 year. Reports being positive for HIV for 29 years. No history of opportunistic infections. Positive for hepatitis C; never treated. SOCIAL HISTORY: Notable for active substance use. He lives in the [place]. He also is an active cigarette smoker. REVIEW OF SYSTEMS: Negative for fevers or chills. He reports that he is feeling like he is going to withdraw. PHYSICAL EXAMINATION:General: He is cooperative. He is awake and alert. Vital Signs: Temperature is 98.3, he has had no fever, pulse is 69, blood pressure 148/90, respiratory rate is 18. HEENT: He is normocephalic. Eyes are anicteric. He has no conjunctival hemorrhages. He has no thrush. Neck: Supple. Lungs: Clear to auscultation. Heart: Regular rate and rhythm. He has no murmur. Abdomen: Soft, nontender. Extremities: Notable for an open wound on his left inner wrist that has some purulent drainage with surrounding erythema. He has an indurated area on the back of his left calf as well that is probably about 5 cm in size, not fluctuant. He has multiple healed scabs. LABORATORIES: Notable for a white count of 7.4, hemoglobin 10.6, platelets are 177. BUN is 10 and creatinine is 0.9. Urinalysis is negative. Chest x-ray is negative for infiltrate. ASSESSMENT: In summary this is an active intravenous drug user, no fevers, with multiple cutaneous abscesses mainly on the left wrist and calf. Cultures are pending. RECOMMENDATIONS: I would continue vancomycin and Zosyn. Follow up cultures. Suggest surgical evaluation. Would obtain a T-cell count as well. Genvoya is non- formulary. His compliance is in question. Patient can resume after discharge from the hospital. As well he has hepatitis C, not yet treated. Case was discussed with his admitting doctor. Surgical consult was advised. KALA MONTILLA M.D. [id number]
[2018-05-16 09:02] LABS: BASO % 0.2 % (0-2.0); EOS % 0.5 % (0-4.5); HEMATOCRIT 37.6 % (35.4-49); HEMOGLOBIN 12.8 GM/dL (11.7-16.9); LYMPH % 9.5 % (8-40); MCH 26.9 pg (25.7-33.7); MCHC 34.1 g/dl (32.0-35.9); MEAN CELL VOLUME 78.8 fl (80-96); MEAN PLT VOLUME 7.5 fl (7.5-11.1); MONO % 5.2 % (3.8-10.2); NEUT % 84.6 % (42.8-82.8); PLATELET COUNT 219 K/MM3 (134-434); RBC 4.77 M/mm3 (4.00-5.60); RDW 14.8 % (11.9-15.9); WHITE BLOOD COUNT 7.2 K/mm3 (4.0-10.0)
--- NOTE | 2018-05-16 09:05 | CONSULT ---
Consult - text type - Consultation Consultation Note: Sorry, unable to oblige with consultation. Patient was beligerent and insulting after removing his bandage. Recommend non-operative management.
[2018-05-16 09:19] LABS: ALBUMIN 3.2 g/dl (3.4-5.0); ALK PHOS 82 U/L (45-117); ANION GAP 6 (8-16); BILIRUBIN,TOTAL 0.9 mg/dL (0.2-1.0); BLOOD UREA NITROGEN 12 mg/dL (7-18); CALCIUM 9.5 mg/dL (8.5-10.1); CHLORIDE 98 mmol/L (98-107); CO2 30 mmol/L (21-32); CREATININE 0.9 mg/dL (0.7-1.3); GLUCOSE,RANDOM 166 mg/dL (74-106); POTASSIUM 4.5 mmol/L (3.5-5.1); SGOT/AST 27 U/L (15-37); SGPT/ALT 33 U/L (12-78); SODIUM 134 mmol/L (136-145); TOT PROT 7.9 g/dl (6.4-8.2)
[2018-05-16] MEDS: LACTOBACILLUS ACIDOPHILUS 1 TABLET PO SCH (09:45)
[2018-05-16] MEDS: NICOTINE 21 MG/24 HOURS TOPICAL PATCH TD SCH (09:46)
[2018-05-16] MEDS: HEPARIN NA (PORCINE) 5,000 UNITS/ML 1ML VIAL SQ SCH ×2 (09:46→22:51)
[2018-05-16] MEDS ORDERED: METHADONE HCL 10 MG TABLET PO SCH (10:00)
[2018-05-16] MEDS ORDERED: METHADONE HCL 10 MG TABLET (FOR DETOX USE ONLY) PO SCH (10:00)
--- NOTE | 2018-05-16 17:12 | PN ---
Progress Note, Physician History of Present Illness: calm - Current Medication List Current Medications: Active Medications Acetaminophen (Tylenol -) 650 mg PO Q6H PRN PRN Reason: PAIN OR FEVER Last Admin: 05/15/18 13:30 Dose: 650 mg Chlordiazepoxide HCl (Librium -) 25 mg PO [id number] [facility] Stop: 05/17/18 11:01 Chlordiazepoxide HCl (Librium -) 15 mg PO [id number] [facility] Stop: 05/18/18 11:01 Chlordiazepoxide HCl (Librium -) 10 mg PO [id number] [facility] Stop: 05/19/18 11:01 Chlordiazepoxide HCl (Librium -) 25 mg PO Q4H PRN PRN Reason: WITHDRAWAL(CONT SUBST) Stop: 05/18/18 17:04 Clindamycin HCl (Cleocin -) 300 mg PO Q6HPO [facility] Last Admin: 05/16/18 12:31 Dose: 300 mg Heparin Sodium (Porcine) (Heparin -) 5,000 unit SQ BID [facility] Last Admin: 05/16/18 09:46 Dose: 5,000 unit Vancomycin HCl (Vancomycin 1 Gm Premix -) 1 gm in 200 mls @ 133.333 mls/hr IVPB Q12H [facility]; Protocol Last Admin: 05/16/18 04:39 Dose: Not Given Piperacillin Sod/Tazobactam (Sod 3.375 gm/ Dextrose) 50 mls @ 100 mls/hr IVPB Q8H-IV [facility]; Protocol Last Admin: 05/16/18 12:26 Dose: Not Given Lactobacillus Acidophilus (Bacid -) 1 tab PO DAILY [facility] Last Admin: 05/16/18 09:45 Dose: 1 tab Methadone HCl (Dolophine -) 15 mg PO DAILY [facility] Stop: 05/18/18 10:01 Methadone HCl (Dolophine -) 5 mg PO DAILY@0600 [facility] Stop: 05/20/18 06:01 Methadone HCl (Dolophine -) 10 mg PO DAILY [facility] Stop: 05/19/18 10:01 Nicotine (Nicoderm Patch -) 21 mg TD DAILY [facility] Last Admin: 05/16/18 09:46 Dose: 21 mg - Objective Vital Signs: Vital Signs Temperature 98.7 F 05/16/18 09:53 Pulse Rate 78 05/16/18 09:53 Respiratory Rate 20 05/16/18 09:53 Blood Pressure 138/84 05/16/18 09:53 O2 Sat by Pulse Oximetry (%) 100 05/15/18 21:00 Constitutional: Yes: No Distress HENT: Yes: Atraumatic Neck: Yes: Supple Cardiovascular: Yes: Regular Rate and Rhythm Respiratory: Yes: CTA Bilaterally Gastrointestinal: Yes: Normal Bowel Sounds Extremities: Yes: Other (cellulitis llex improving left wrist improving) Neurological: Yes: Alert, Oriented Labs: CBC, BMP 05/16/18 08:40 05/16/18 08:40 INR, PTT INR 1.12 (0.83-1.09) H 05/14/18 18:52 Problem List - Problems (1) Abscess Assessment/Plan: iv abx id on board Code(s): L02.91 - CUTANEOUS ABSCESS, UNSPECIFIED (2) HIV (human immunodeficiency virus infection) Code(s): Z21 - ASYMPTOMATIC HUMAN IMMUNODEFICIENCY VIRUS INFECTION STATUS (3) Asthma Assessment/Plan: stable Code(s): J45.909 - UNSPECIFIED ASTHMA, UNCOMPLICATED Qualifiers: (4) AIDS (acquired immune deficiency syndrome) Code(s): B20 - HUMAN IMMUNODEFICIENCY VIRUS [HIV] DISEASE (5) Abscess of forearm, left Assessment/Plan: on abx Code(s): L02.414 - CUTANEOUS ABSCESS OF LEFT UPPER LIMB (6) Abscess of left lower leg Code(s): L02.416 - CUTANEOUS ABSCESS OF LEFT LOWER LIMB (7) Hepatitis C Code(s): B19.20 - UNSPECIFIED VIRAL HEPATITIS C WITHOUT HEPATIC COMA Qualifiers: Viral hepatitis chronicity: chronic Hepatic coma status: without hepatic coma Qualified Code(s): B18.2 - Chronic viral hepatitis C (8) Heroin dependence Assessment/Plan: on methadone program Code(s): F11.20 - OPIOID DEPENDENCE, UNCOMPLICATED
--- NOTE | 2018-05-16 17:57 | PN ---
Progress Note (short form) - Note Progress Note: oob in chair no iv access history of IVDA- these are injection sites history of Hep C- not treated History of HIV- on Genvoya followed in the [place] for medical care no fevers Vital Signs Period Temp Pulse Resp BP Sys/Ferro Pulse Ox Last 24 Hr 98.7 F-99 F 67-78 18-20 137-147/78-92 100 cor-rrr lulngs clear wrist ulcer with less drainage calf is indurated and fluctuant CBC, BMP 05/16/18 08:40 05/16/18 08:40 Microbiology 05/14/18 16:32 Wrist - Left Gram Stain - Final 05/14/18 16:32 Wrist - Left Wound Culture - Preliminary Staphylococcus Latex Coag Pos 05/14/18 16:32 Leg - Left Lower Gram Stain - Final 05/14/18 16:32 Leg - Left Lower Wound Culture - Preliminary Staphylococcus Latex Coag Pos 05/14/18 20:15 Urine - Urine Clean Catch Urine Culture - Preliminary Presumptive Mrsa (Pbp2a Pos) 05/14/18 18:52 Blood - Peripheral Venous Blood Culture - Preliminary NO GROWTH OBTAINED AFTER 24 HOURS, INCUBATION TO CONTINUE FOR 4 DAYS. 05/14/18 18:52 Blood - Peripheral Venous Blood Culture - Preliminary NO GROWTH OBTAINED AFTER 24 HOURS, INCUBATION TO CONTINUE FOR 4 DAYS. a/p multiple abscesses- MRSA HIV positive substance abuse switched to po clindamycin, no iv access didnot permit surgeon to drain abscesses please call back if needed Problem List - Problems (1) Abscess Code(s): L02.91 - CUTANEOUS ABSCESS, UNSPECIFIED (2) HIV (human immunodeficiency virus infection) Code(s): Z21 - ASYMPTOMATIC HUMAN IMMUNODEFICIENCY VIRUS INFECTION STATUS (3) Substance abuse Code(s): F19.10 - OTHER PSYCHOACTIVE SUBSTANCE ABUSE, UNCOMPLICATED (4) Hepatitis C antibody test positive Code(s): R76.8 - OTHER SPECIFIED ABNORMAL IMMUNOLOGICAL FINDINGS IN SERUM
[2018-05-16] MEDS: ACETAMINOPHEN 325 MG TABLET (FP) PO PRN (22:51)
--- NOTE | 2018-05-16 22:57 | CONSULT ---
Consult Consult Specialty:: General Surgery Referred by:: Dr. Monroy Reason for Consultation:: left wrist and calf abscesses - History of Present Illness Chief Complaint: pain, swelling, drainage left calf and wrist History of Present Illness: 52yo M with HIV, Hep C, polysubstance abuse, sent from [facility] for noted abscesses to left wrist and calf before accepting him for detox/rehab treatment. He admits injecting heroin and cocaine daily, and did so 3 wks ago in these sites. He developed significant swelling and pain in both areas, with some drainage. He indicates both areas were much bigger previously. He is in a lot of pain from the calf, not much from the wrist. He also showed me a small open sore on his posterior left thigh. He denies ever having similar wounds drained in the past. He was admitted to medicine, and is on antibiotics per ID. Cultures taken from the sites (?by ER?) are growing presumed MRSA, as is his urine. He denies F/C, N/V, abdominal pain, but is clearly having difficulty ambulating secondary to pain in the left leg. He put lotion on the wrist lesion earlier, which is open to air. The calf lesion is also [employer]. He is seen and examined ambulating in his room. He does not want to lie in bed. He requests something for pain and is concerned about taking Tylenol because of his hepatitis C. His wbc is normal, and he is afebrile. - History Source History Provided By: Patient, Medical Record Limitations to Obtaining History: Poor Historian - Past Medical History Pulmonary: Yes: Asthma Hepatobiliary: Yes: Hepatitis C (untreated) Infectious Disease: Yes: HIV, MRSA Psych: Yes: Addictions (heroin, cocaine, tobacco, EtOH, also uses MJ daily) - Past Surgical History Past Surgical History: Yes: None (denies) - Alcohol/Substance Use Hx Alcohol Use: Yes ("a lot" daily) History of Substance Use: reports: Cocaine (daily), Heroin (daily), Marijuana ( daily) - Smoking History Smoking history: Current every day smoker Have you smoked in the past 12 months: Yes Aproximately how many cigarettes per day: 40 (2+ packs per day) - Social History ADL: Independent Home Medications - Allergies Allergies/Adverse Reactions: Allergies Allergy/AdvReac Type Severity Reaction Status Date / Time No Known Allergies Allergy Verified 05/14/18 18:46 - Home Medications Home Medications: Ambulatory Orders NK [No Known Home Medication] 05/14/18 Family Disease History - Family Disease History Family Disease History: Diabetes: Mother () Review of Systems Unable to obtain ROS, reason: limited from pt - Review of Systems Constitutional: denies: Chills, Fever Eyes: denies: Blurred Vision, Recent Change in Vision HENT: denies: Difficult Swallowing, Nasal Congestion, Throat Pain Neck: denies: Swollen Glands, Tenderness Cardiovascular: denies: Chest Pain, Palpitations Respiratory: reports: Cough. denies: SOB Gastrointestinal: denies: Abdominal Pain, Nausea, Vomiting Musculoskeletal: reports: Extremity Pain (with hpi LLE). denies: Back Pain Integumentary: reports: Wound (with hpi). denies: Change in Color Neurological: denies: Dizziness, Headache Physical Exam Vital Signs: Vital Signs Temperature 98.2 F 05/16/18 18:00 Pulse Rate 71 05/16/18 18:00 Respiratory Rate 20 05/16/18 18:00 Blood Pressure 153/82 05/16/18 18:00 O2 Sat by Pulse Oximetry (%) 98 05/16/18 09:00 Constitutional: Yes: Anxious, Moderate Distress (secondary to pain), Thin Eyes: Yes: Conjunctiva Clear, EOM Intact HENT: Yes: Atraumatic, Normocephalic Neck: Yes: Supple, Trachea Midline Cardiovascular: Yes: Regular Rate and Rhythm. No: Murmur Respiratory: Yes: Regular, CTA Bilaterally Gastrointestinal: Yes: Soft. No: Distention, Tenderness ...Rectal Exam: Yes: Deferred Renal/: No: CVA Tenderness - Left, CVA Tenderness - Right Musculoskeletal: Yes: Muscle Pain (left calf where wound is). No: Joint Stiffness, Joint Swelling Extremities: Yes: Erythema (warm and mild erythema around left calf wound), Other (left volar/thenar wrist with small open wound, clean/red-based, no active or expressible drainage, flaking skin surrounding, some lotion residue on area, minimally tender). No: Cool, Cyanosis Edema: Yes (local L calf around wound) Peripheral Pulses WNL: Yes Integumentary: Yes: Tattoos. No: Jaundice Wound/Incision: Yes: Open to air (left posterior calf wound - small mounded ulcer (1cm or less), no active or expressible drainage, very tender; warm and swollen surrounding, (less than previously per pt), not fluctuant, but possibly locally indurated, difficult to examine secondary to pain), Dressing Removed ( over posterior left thigh sore - clean/red-based, shallow, ~1.5cm, scant serosang on gauze, minimally tender - redressed with 2x2 gauze and tape), Reddened. No: Draining Neurological: Yes: Alert, Oriented Psychiatric: Yes: Alert, Agitated (mildly) Labs: CBC, BMP 05/16/18 08:40 05/16/18 08:40 INR, PTT INR 1.12 (0.83-1.09) H 05/14/18 18:52 Urine Test Results Urine Color Ltyellow 05/14/18 20:15 Urine Appearance Clear 05/14/18 20:15 Urine pH 8.0 (5.0-8.0) D 05/14/18 20:15 Ur Specific [place] 1.008 (1.001-1.035) 05/14/18 20:15 Urine Protein Negative (NEGATIVE) 05/14/18 20:15 Urine Glucose (UA) Negative (NEGATIVE) 05/14/18 20:15 Urine Ketones Negative (NEGATIVE) 05/14/18 20:15 Urine Blood Negative (NEGATIVE) 05/14/18 20:15 Urine Nitrite Negative (NEGATIVE) 05/14/18 20:15 Urine Bilirubin Negative (<2.0 mg/dL) 05/14/18 20:15 Ur Leukocyte Esterase Negative (NEGATIVE) 05/14/18 20:15 Microbiology 05/14/18 18:52 Blood Culture - Preliminary Blood - Peripheral Venous NO GROWTH OBTAINED AFTER 48 HOURS, INCUBATION TO CONTINUE FOR 3 DAYS. 05/14/18 18:52 Blood Culture - Preliminary Blood - Peripheral Venous NO GROWTH OBTAINED AFTER 48 HOURS, INCUBATION TO CONTINUE FOR 3 DAYS. 05/14/18 16:32 Gram Stain - Final Wrist - Left Wound Culture - Preliminary Staphylococcus Latex Coag Pos 05/14/18 16:32 Gram Stain - Final Leg - Left Lower Wound Culture - Preliminary Staphylococcus Latex Coag Pos 05/14/18 20:15 Urine Culture - Preliminary Urine - Urine Clean Catch Presumptive Mrsa (Pbp2a Pos) Imaging - Results X-ray: Other (no XR of left wrist or calf) Problem List - Problems (1) Abscess of forearm, left Assessment/Plan: left wrist MRSA abscess appears clean and not currently draining over radial pulse point would not pursue drainage/opening continue antibiotics as per ID Code(s): L02.414 - CUTANEOUS ABSCESS OF LEFT UPPER LIMB (2) Abscess of left lower leg Assessment/Plan: posterior thigh lesion is clean, no indication for further I&D left calf wound MRSA abscess, likely more local necrosis than purulence offered I&D under local anesthesia in am, though it does seem to be improving on antibiotics this would necessitate daily packing changes to open wound and continued pain control advised pt he needs to understand that this will still hurt, and he will need to cooperate with dressing changes will discuss with primary team as well regarding acute pain control pt encouraged to use Tylenol and/or ibuprofen prn continue abx as per ID Code(s): L02.416 - CUTANEOUS ABSCESS OF LEFT LOWER LIMB (3) MRSA (methicillin resistant Staphylococcus aureus) infection Code(s): A49.02 - METHICILLIN RESIS STAPH INFECTION, UNSP SITE (4) Hepatitis C Code(s): B19.20 - UNSPECIFIED VIRAL HEPATITIS C WITHOUT HEPATIC COMA Qualifiers: Viral hepatitis chronicity: chronic Hepatic coma status: without hepatic coma Qualified Code(s): B18.2 - Chronic viral hepatitis C (5) HIV infection Code(s): B20 - HUMAN IMMUNODEFICIENCY VIRUS [HIV] DISEASE (6) Cocaine dependence Code(s): F14.20 - COCAINE DEPENDENCE, UNCOMPLICATED Qualifiers: Substance use status: in withdrawal Qualified Code(s): F14.23 - Cocaine dependence with withdrawal (7) Opioid dependence with withdrawal Assessment/Plan: heroin started on methadone seen by detox Code(s): F11.23 - OPIOID DEPENDENCE WITH WITHDRAWAL (8) Alcohol dependence with uncomplicated withdrawal Assessment/Plan: started on librium seen by detox Code(s): F10.230 - ALCOHOL DEPENDENCE WITH WITHDRAWAL, UNCOMPLICATED (9) Cannabis abuse Code(s): F12.10 - CANNABIS ABUSE, UNCOMPLICATED (10) Nicotine dependence Code(s): F17.200 - NICOTINE DEPENDENCE, UNSPECIFIED, UNCOMPLICATED Qualifiers: Nicotine product type: cigarettes Substance use status: in withdrawal Qualified Code(s): F17.213 - Nicotine dependence, cigarettes, with withdrawal
[2018-05-17] MEDS: CLINDAMYCIN HCL 150 MG CAPSULE (FP) PO SCH ×3 (06:03→17:11)
[2018-05-17] MEDS: chlordiazePOXIDE HCL 25 MG CAPSULE PO SCH ×2 (06:04→11:56)
[2018-05-17] MEDS: ACETAMINOPHEN 325 MG TABLET (FP) PO PRN ×2 (06:04→11:56)
[2018-05-17] MEDS: HEPARIN NA (PORCINE) 5,000 UNITS/ML 1ML VIAL SQ SCH ×2 (09:06→22:17)
[2018-05-17] MEDS: LACTOBACILLUS ACIDOPHILUS 1 TABLET PO SCH (09:06)
[2018-05-17] MEDS: NICOTINE 21 MG/24 HOURS TOPICAL PATCH TD SCH ×2 (09:06→09:22)
[2018-05-17] MEDS: METHADONE HCL 5 MG TABLET PO SCH (09:06)
[2018-05-17] MEDS ORDERED: METHADONE HCL 5 MG TABLET (FOR DETOX USE ONLY) PO SCH (10:00)
--- NOTE | 2018-05-17 11:48 | PN ---
Progress Note, Physician History of Present Illness: Pt with left wrist, calf and posterior thigh MRSA abscesses/lesions. Left wrist and thigh not draining, shallow, no intervention needed. On antibiotics per ID. L calf site still somewhat swollen, tender, though walking ever so slightly better than last night. Pt seen and examined in room. Seems in a bit better spirits this am. Still c/o pain, especially with walking. - Current Medication List Current Medications: Active Medications Acetaminophen (Tylenol -) 650 mg PO Q6H PRN PRN Reason: PAIN OR FEVER Last Admin: 05/17/18 06:04 Dose: 650 mg Chlordiazepoxide HCl (Librium -) 15 mg PO [id number] [facility] Stop: 05/18/18 11:01 Chlordiazepoxide HCl (Librium -) 10 mg PO [id number] [facility] Stop: 05/19/18 11:01 Chlordiazepoxide HCl (Librium -) 25 mg PO Q4H PRN PRN Reason: WITHDRAWAL(CONT SUBST) Stop: 05/18/18 17:04 Clindamycin HCl (Cleocin -) 300 mg PO Q6HPO [facility] Last Admin: 05/17/18 06:03 Dose: 300 mg Heparin Sodium (Porcine) (Heparin -) 5,000 unit SQ BID [facility] Last Admin: 05/17/18 09:06 Dose: 5,000 unit Lactobacillus Acidophilus (Bacid -) 1 tab PO DAILY [facility] Last Admin: 05/17/18 09:06 Dose: 1 tab Methadone HCl (Dolophine -) 15 mg PO DAILY [facility] Stop: 05/18/18 10:01 Last Admin: 05/17/18 09:06 Dose: 15 mg Methadone HCl (Dolophine -) 5 mg PO DAILY@0600 [facility] Stop: 05/20/18 06:01 Methadone HCl (Dolophine -) 10 mg PO DAILY [facility] Stop: 05/19/18 10:01 Nicotine (Nicoderm Patch -) 21 mg TD DAILY [facility] Last Admin: 05/17/18 09:22 Dose: Not Given - Objective Vital Signs: Vital Signs Temperature 97.6 F 05/17/18 06:00 Pulse Rate 73 05/17/18 06:00 Respiratory Rate 20 05/17/18 06:00 Blood Pressure 138/79 05/17/18 06:00 O2 Sat by Pulse Oximetry (%) 98 05/16/18 09:00 Constitutional: Yes: No Distress, Calm, Thin Eyes: Yes: Conjunctiva Clear, EOM Intact HENT: Yes: Atraumatic, Normocephalic Musculoskeletal: No: Joint Stiffness, Joint Swelling Extremities: Yes: Calf Tenderness (left, secondary to wound), Erythema ( slightly less at left calf), Other (L wrist and posterior thigh lesions stable, dressed, dry.). No: Cool, Cyanosis Integumentary: Yes: Tattoos. No: Jaundice, Rash Wound/Incision: Yes: Dressing Dry and Intact, Dressing Removed (at left calf - enough to see wound - ~5ml pus expressed from wound site gently, pt tolerated well, with pain but overall relief from pressure at site, and improved ability to put weight on foot - redressed with gauze and gauze wrap.), Draining ( purulent, old bloody; site much softer after expressed drainage), Reddened ( local erythema, slightly more wrinkles to area) Neurological: Yes: Alert, Oriented Psychiatric: Yes: Alert, Oriented. No: Agitated (much less than last night) Labs: no new labs Microbiology 05/14/18 16:32 Gram Stain - Final Leg - Left Lower Wound Culture - Preliminary Mr S Aureus 05/14/18 16:32 Gram Stain - Final Wrist - Left Wound Culture - Preliminary Mr S Aureus 05/14/18 20:15 Urine Culture - Final Urine - Urine Clean Catch Mr S Aureus 05/14/18 18:52 Blood Culture - Preliminary Blood - Peripheral Venous NO GROWTH OBTAINED AFTER 48 HOURS, INCUBATION TO CONTINUE FOR 3 DAYS. 05/14/18 18:52 Blood Culture - Preliminary Blood - Peripheral Venous NO GROWTH OBTAINED AFTER 48 HOURS, INCUBATION TO CONTINUE FOR 3 DAYS. - ....Imaging X-ray: Pending (L wrist and chest - just done) Problem List - Problems (1) Abscess of forearm, left Assessment/Plan: left wrist MRSA abscess appears clean and not currently draining over radial pulse point would not pursue drainage/opening continue antibiotics as per ID Code(s): L02.414 - CUTANEOUS ABSCESS OF LEFT UPPER LIMB (2) Abscess of left lower leg Assessment/Plan: posterior thigh lesion is clean, no indication for further I&D left calf wound MRSA abscess slightly less tender and indurated, slightly softer able to gently squeeze out ~5ml pus from wound recovered with gauze and gauze wrap pt feeling less pressure already - will check again in am if needs further drainage, or if antibiotics alone can treat residual cellulitis pt encouraged to use Tylenol and/or ibuprofen prn continue abx as per ID Code(s): L02.416 - CUTANEOUS ABSCESS OF LEFT LOWER LIMB (3) MRSA (methicillin resistant Staphylococcus aureus) infection Code(s): A49.02 - METHICILLIN RESIS STAPH INFECTION, UNSP SITE (4) Hepatitis C Code(s): B19.20 - UNSPECIFIED VIRAL HEPATITIS C WITHOUT HEPATIC COMA Qualifiers: Viral hepatitis chronicity: chronic Hepatic coma status: without hepatic coma Qualified Code(s): B18.2 - Chronic viral hepatitis C (5) HIV infection Code(s): B20 - HUMAN IMMUNODEFICIENCY VIRUS [HIV] DISEASE (6) Cocaine dependence Code(s): F14.20 - COCAINE DEPENDENCE, UNCOMPLICATED Qualifiers: Substance use status: in withdrawal Qualified Code(s): F14.23 - Cocaine dependence with withdrawal (7) Opioid dependence with withdrawal Assessment/Plan: heroin started on methadone seen by detox Code(s): F11.23 - OPIOID DEPENDENCE WITH WITHDRAWAL (8) Alcohol dependence with uncomplicated withdrawal Assessment/Plan: started on librium seen by detox Code(s): F10.230 - ALCOHOL DEPENDENCE WITH WITHDRAWAL, UNCOMPLICATED (9) Cannabis abuse Code(s): F12.10 - CANNABIS ABUSE, UNCOMPLICATED (10) Nicotine dependence Code(s): F17.200 - NICOTINE DEPENDENCE, UNSPECIFIED, UNCOMPLICATED Qualifiers: Nicotine product type: cigarettes Substance use status: in withdrawal Qualified Code(s): F17.213 - Nicotine dependence, cigarettes, with withdrawal
[2018-05-17] MEDS ORDERED: GABAPENTIN 400 MG CAPSULE (FP) PO ONE (16:15)
[2018-05-17] MEDS: chlordiazePOXIDE 5 MG CAPSULE PO SCH ×2 (16:26→22:16)
--- NOTE | 2018-05-17 17:57 | PN ---
Progress Note (short form) - Note Progress Note: oob in chair no iv access some drainage from the calf Vital Signs Period Temp Pulse Resp BP Sys/Ferro Pulse Ox Last 24 Hr 97.6 F-98.9 F 71-90 20-22 107-153/79-82 99 cor-rrr lungs clear abd soft,nt ext no edema CBC, BMP 05/16/18 08:40 05/16/18 08:40 Microbiology 05/14/18 16:32 Wrist - Left Gram Stain - Final 05/14/18 16:32 Wrist - Left Wound Culture - Final S Aureus 05/14/18 16:32 Leg - Left Lower Gram Stain - Final 05/14/18 16:32 Leg - Left Lower Wound Culture - Final S Aureus 05/14/18 20:15 Urine - Urine Clean Catch Urine Culture - Final S Aureus 05/14/18 18:52 Blood - Peripheral Venous Blood Culture - Preliminary NO GROWTH OBTAINED AFTER 48 HOURS, INCUBATION TO CONTINUE FOR 3 DAYS. 05/14/18 18:52 Blood - Peripheral Venous Blood Culture - Preliminary NO GROWTH OBTAINED AFTER 48 HOURS, INCUBATION TO CONTINUE FOR 3 DAYS. a/p multiple abscesses- MRSA sensitive to clindamycin continue clindamycin for another week continue probiotics HIV positive-to resume genvoya as outpt substance abuse please call back if needed Problem List - Problems (1) Abscess Code(s): L02.91 - CUTANEOUS ABSCESS, UNSPECIFIED (2) HIV (human immunodeficiency virus infection) Code(s): Z21 - ASYMPTOMATIC HUMAN IMMUNODEFICIENCY VIRUS INFECTION STATUS (3) Substance abuse Code(s): F19.10 - OTHER PSYCHOACTIVE SUBSTANCE ABUSE, UNCOMPLICATED (4) Hepatitis C antibody test positive Code(s): R76.8 - OTHER SPECIFIED ABNORMAL IMMUNOLOGICAL FINDINGS IN SERUM
--- NOTE | 2018-05-17 18:01 | PN ---
Progress Note, Physician - Current Medication List Current Medications: Active Medications Acetaminophen (Tylenol -) 650 mg PO Q6H PRN PRN Reason: PAIN OR FEVER Last Admin: 05/17/18 11:56 Dose: 650 mg Chlordiazepoxide HCl (Librium -) 15 mg PO [id number] [facility] Stop: 05/18/18 11:01 Last Admin: 05/17/18 16:26 Dose: 15 mg Chlordiazepoxide HCl (Librium -) 10 mg PO [id number] [facility] Stop: 05/19/18 11:01 Chlordiazepoxide HCl (Librium -) 25 mg PO Q4H PRN PRN Reason: WITHDRAWAL(CONT SUBST) Stop: 05/18/18 17:04 Clindamycin HCl (Cleocin -) 300 mg PO Q6HPO [facility] Last Admin: 05/17/18 17:11 Dose: 300 mg Gabapentin (Neurontin -) 400 mg PO TID [facility] Heparin Sodium (Porcine) (Heparin -) 5,000 unit SQ BID [facility] Last Admin: 05/17/18 09:06 Dose: 5,000 unit Lactobacillus Acidophilus (Bacid -) 1 tab PO DAILY [facility] Last Admin: 05/17/18 09:06 Dose: 1 tab Methadone HCl (Dolophine -) 15 mg PO DAILY [facility] Stop: 05/18/18 10:01 Last Admin: 05/17/18 09:06 Dose: 15 mg Methadone HCl (Dolophine -) 5 mg PO DAILY@0600 [facility] Stop: 05/20/18 06:01 Methadone HCl (Dolophine -) 10 mg PO DAILY [facility] Stop: 05/19/18 10:01 Nicotine (Nicoderm Patch -) 21 mg TD DAILY [facility] Last Admin: 05/17/18 09:22 Dose: Not Given - Objective Vital Signs: Vital Signs Temperature 98.5 F 05/17/18 15:51 Pulse Rate 88 05/17/18 15:51 Respiratory Rate 22 05/17/18 15:51 Blood Pressure 148/80 05/17/18 15:51 O2 Sat by Pulse Oximetry (%) 99 05/17/18 09:00 Constitutional: Yes: No Distress HENT: Yes: Atraumatic Neck: Yes: Supple Cardiovascular: Yes: Regular Rate and Rhythm Respiratory: Yes: CTA Bilaterally Gastrointestinal: Yes: Normal Bowel Sounds Extremities: Yes: Other (left wrist and llex cellulitis improving) Neurological: Yes: Alert, Oriented Labs: CBC, BMP 05/16/18 08:40 05/16/18 08:40 INR, PTT INR 1.12 (0.83-1.09) H 05/14/18 18:52 Problem List - Problems (1) Abscess Assessment/Plan: iv abx id on board Code(s): L02.91 - CUTANEOUS ABSCESS, UNSPECIFIED (2) HIV (human immunodeficiency virus infection) Code(s): Z21 - ASYMPTOMATIC HUMAN IMMUNODEFICIENCY VIRUS INFECTION STATUS (3) Asthma Assessment/Plan: stable Code(s): J45.909 - UNSPECIFIED ASTHMA, UNCOMPLICATED Qualifiers: (4) AIDS (acquired immune deficiency syndrome) Assessment/Plan: not on any meds d/w id Code(s): B20 - HUMAN IMMUNODEFICIENCY VIRUS [HIV] DISEASE (5) Abscess of forearm, left Code(s): L02.414 - CUTANEOUS ABSCESS OF LEFT UPPER LIMB (6) Abscess of left lower leg Code(s): L02.416 - CUTANEOUS ABSCESS OF LEFT LOWER LIMB
[2018-05-17] MEDS ORDERED: ONDANSETRON 4 MG TABLET PO ONE (18:30)
[2018-05-17] MEDS: GABAPENTIN 400 MG CAPSULE (FP) PO SCH (22:15)
[2018-05-18] MEDS: CLINDAMYCIN HCL 150 MG CAPSULE (FP) PO SCH ×4 (00:51→18:22)
[2018-05-18] MEDS: ACETAMINOPHEN 325 MG TABLET (FP) PO PRN (03:42)
[2018-05-18] MEDS: chlordiazePOXIDE 5 MG CAPSULE PO SCH ×2 (05:31→11:03)
[2018-05-18] MEDS: GABAPENTIN 400 MG CAPSULE (FP) PO SCH ×3 (05:32→22:14)
--- NOTE | 2018-05-18 10:52 | PN ---
Progress Note, Physician History of Present Illness: Pt with left wrist, calf and posterior thigh MRSA abscesses/lesions. Left wrist and thigh not draining, shallow, no intervention needed. On antibiotics per ID. L calf site evacuated of pus yesterday by manual expression, pt walking better today, dressing c/d/i. Still hurts, but improving. - Current Medication List Current Medications: Active Medications Acetaminophen (Tylenol -) 650 mg PO Q6H PRN PRN Reason: PAIN OR FEVER Last Admin: 05/18/18 03:42 Dose: 650 mg Chlordiazepoxide HCl (Librium -) 15 mg PO [id number] [facility] Stop: 05/18/18 11:01 Last Admin: 05/18/18 05:31 Dose: 15 mg Chlordiazepoxide HCl (Librium -) 10 mg PO [id number] [facility] Stop: 05/19/18 11:01 Chlordiazepoxide HCl (Librium -) 25 mg PO Q4H PRN PRN Reason: WITHDRAWAL(CONT SUBST) Stop: 05/18/18 17:04 Clindamycin HCl (Cleocin -) 300 mg PO Q6HPO [facility] Last Admin: 05/18/18 05:32 Dose: 300 mg Gabapentin (Neurontin -) 400 mg PO TID [facility] Last Admin: 05/18/18 05:32 Dose: 400 mg Heparin Sodium (Porcine) (Heparin -) 5,000 unit SQ BID [facility] Last Admin: 05/17/18 22:17 Dose: 5,000 unit Lactobacillus Acidophilus (Bacid -) 1 tab PO DAILY [facility] Last Admin: 05/17/18 09:06 Dose: 1 tab Methadone HCl (Dolophine -) 5 mg PO DAILY@0600 [facility] Stop: 05/20/18 06:01 Methadone HCl (Dolophine -) 10 mg PO DAILY [facility] Stop: 05/19/18 10:01 Nicotine (Nicoderm Patch -) 21 mg TD DAILY [facility] Last Admin: 05/17/18 09:22 Dose: Not Given - Objective Vital Signs: Vital Signs Temperature 98.4 F 05/18/18 06:00 Pulse Rate 73 05/18/18 06:00 Respiratory Rate 20 05/18/18 06:00 Blood Pressure 113/66 05/18/18 06:00 O2 Sat by Pulse Oximetry (%) 99 05/17/18 21:00 Constitutional: Yes: No Distress, Calm, Thin Eyes: Yes: Conjunctiva Clear, EOM Intact HENT: Yes: Atraumatic, Normocephalic Musculoskeletal: No: Joint Stiffness, Joint Swelling Extremities: No: Cool, Cyanosis Integumentary: Yes: Tattoos, Other (wounds clean at left wrist and left posterior thigh - yellow/red based, no drainage, shallow - both redressed with gauze). No: Jaundice Wound/Incision: Yes: Open to air, Reddened (mild local erythema, less induration , less tender), Other (small red-rimmed, soft yellow-based necrotic center with tiny opening - no drainage expressible, cellulitis resolving slowly, no fluctuance, somewhat tender). No: Draining Neurological: Yes: Alert, Oriented Labs: no new labs Problem List - Problems (1) Abscess of forearm, left Assessment/Plan: left wrist MRSA abscess appears clean and not currently draining over radial pulse point would not pursue drainage/opening continue antibiotics as per ID Code(s): L02.414 - CUTANEOUS ABSCESS OF LEFT UPPER LIMB (2) Abscess of left lower leg Assessment/Plan: posterior thigh lesion is clean, no indication for further I&D left calf wound MRSA abscess less tender and indurated, still with mild erythema and local edema but improving recovered with gauze and gauze wrap antibiotics alone should treat residual cellulitis and remainder of necrotic lesion pt encouraged to use Tylenol and/or ibuprofen prn continue abx as per ID Code(s): L02.416 - CUTANEOUS ABSCESS OF LEFT LOWER LIMB (3) MRSA (methicillin resistant Staphylococcus aureus) infection Code(s): A49.02 - METHICILLIN RESIS STAPH INFECTION, UNSP SITE (4) Hepatitis C Code(s): B19.20 - UNSPECIFIED VIRAL HEPATITIS C WITHOUT HEPATIC COMA Qualifiers: Viral hepatitis chronicity: chronic Hepatic coma status: without hepatic coma Qualified Code(s): B18.2 - Chronic viral hepatitis C (5) HIV infection Code(s): B20 - HUMAN IMMUNODEFICIENCY VIRUS [HIV] DISEASE (6) Cocaine dependence Code(s): F14.20 - COCAINE DEPENDENCE, UNCOMPLICATED Qualifiers: Substance use status: in withdrawal Qualified Code(s): F14.23 - Cocaine dependence with withdrawal (7) Opioid dependence with withdrawal Assessment/Plan: heroin started on methadone seen by detox Code(s): F11.23 - OPIOID DEPENDENCE WITH WITHDRAWAL (8) Alcohol dependence with uncomplicated withdrawal Assessment/Plan: started on librium seen by detox Code(s): F10.230 - ALCOHOL DEPENDENCE WITH WITHDRAWAL, UNCOMPLICATED (9) Cannabis abuse Code(s): F12.10 - CANNABIS ABUSE, UNCOMPLICATED (10) Nicotine dependence Code(s): F17.200 - NICOTINE DEPENDENCE, UNSPECIFIED, UNCOMPLICATED Qualifiers: Nicotine product type: cigarettes Substance use status: in withdrawal Qualified Code(s): F17.213 - Nicotine dependence, cigarettes, with withdrawal
[2018-05-18] MEDS: HEPARIN NA (PORCINE) 5,000 UNITS/ML 1ML VIAL SQ SCH ×2 (11:04→22:17)
[2018-05-18] MEDS: LACTOBACILLUS ACIDOPHILUS 1 TABLET PO SCH (11:04)
[2018-05-18] MEDS: METHADONE HCL 5 MG TABLET PO SCH (11:04)
[2018-05-18] MEDS: NICOTINE 21 MG/24 HOURS TOPICAL PATCH TD SCH (11:04)
--- NOTE | 2018-05-18 15:18 | PN ---
Progress Note, Physician - Current Medication List Current Medications: Active Medications Acetaminophen (Tylenol -) 650 mg PO Q6H PRN PRN Reason: PAIN OR FEVER Last Admin: 05/18/18 03:42 Dose: 650 mg Chlordiazepoxide HCl (Librium -) 10 mg PO [id number] [facility] Stop: 05/19/18 11:01 Chlordiazepoxide HCl (Librium -) 25 mg PO Q4H PRN PRN Reason: WITHDRAWAL(CONT SUBST) Stop: 05/18/18 17:04 Clindamycin HCl (Cleocin -) 300 mg PO Q6HPO [facility] Last Admin: 05/18/18 11:03 Dose: 300 mg Gabapentin (Neurontin -) 400 mg PO TID [facility] Last Admin: 05/18/18 05:32 Dose: 400 mg Heparin Sodium (Porcine) (Heparin -) 5,000 unit SQ BID [facility] Last Admin: 05/18/18 11:04 Dose: 5,000 unit Lactobacillus Acidophilus (Bacid -) 1 tab PO DAILY [facility] Last Admin: 05/18/18 11:04 Dose: 1 tab Methadone HCl (Dolophine -) 5 mg PO DAILY@0600 [facility] Stop: 05/20/18 06:01 Methadone HCl (Dolophine -) 10 mg PO DAILY [facility] Stop: 05/19/18 10:01 Nicotine (Nicoderm Patch -) 21 mg TD DAILY [facility] Last Admin: 05/18/18 11:04 Dose: 21 mg - Objective Vital Signs: Vital Signs Temperature 98.2 F 05/18/18 12:01 Pulse Rate 88 05/18/18 12:01 Respiratory Rate 18 05/18/18 12:01 Blood Pressure 157/85 05/18/18 12:01 O2 Sat by Pulse Oximetry (%) 99 05/17/18 21:00 Constitutional: Yes: No Distress HENT: Yes: Atraumatic Neck: Yes: Supple Cardiovascular: Yes: Regular Rate and Rhythm Respiratory: Yes: CTA Bilaterally Gastrointestinal: Yes: Normal Bowel Sounds Extremities: Yes: Other (cellulitis left wrist and llex) Neurological: Yes: Alert, Oriented Labs: CBC, BMP 05/16/18 08:40 05/16/18 08:40 INR, PTT INR 1.12 (0.83-1.09) H 05/14/18 18:52 Problem List - Problems (1) Abscess Assessment/Plan: iv abx id on board Code(s): L02.91 - CUTANEOUS ABSCESS, UNSPECIFIED (2) HIV (human immunodeficiency virus infection) Code(s): Z21 - ASYMPTOMATIC HUMAN IMMUNODEFICIENCY VIRUS INFECTION STATUS (3) Asthma Assessment/Plan: stable Code(s): J45.909 - UNSPECIFIED ASTHMA, UNCOMPLICATED Qualifiers: (4) AIDS (acquired immune deficiency syndrome) Assessment/Plan: not on any meds d/w id Code(s): B20 - HUMAN IMMUNODEFICIENCY VIRUS [HIV] DISEASE (5) Abscess of forearm, left Code(s): L02.414 - CUTANEOUS ABSCESS OF LEFT UPPER LIMB (6) Abscess of left lower leg Code(s): L02.416 - CUTANEOUS ABSCESS OF LEFT LOWER LIMB (7) Heroin dependence Code(s): F11.20 - OPIOID DEPENDENCE, UNCOMPLICATED
[2018-05-18] MEDS ORDERED: chlordiazePOXIDE 5 MG CAPSULE ONE ×2 (18:20→21:22)
[2018-05-18] MEDS: chlordiazePOXIDE HCL 10 MG CAPSULE PO SCH ×2 (18:22→22:15)
[2018-05-18] MEDS: IBUPROFEN 400 MG TABLET (FP) PO PRN (22:13)
[2018-05-19] MEDS: CLINDAMYCIN HCL 150 MG CAPSULE (FP) PO SCH ×3 (00:12→13:08)
[2018-05-19] MEDS ORDERED: chlordiazePOXIDE 5 MG CAPSULE ONE ×2 (05:19→12:49)
[2018-05-19] MEDS: GABAPENTIN 400 MG CAPSULE (FP) PO SCH ×2 (05:53→13:08)
[2018-05-19] MEDS: chlordiazePOXIDE HCL 10 MG CAPSULE PO SCH ×2 (05:53→12:54)
[2018-05-19] MEDS: IBUPROFEN 400 MG TABLET (FP) PO PRN (06:00)
[2018-05-19] MEDS: LACTOBACILLUS ACIDOPHILUS 1 TABLET PO SCH (09:55)
[2018-05-19] MEDS: HEPARIN NA (PORCINE) 5,000 UNITS/ML 1ML VIAL SQ SCH (09:56)
[2018-05-19] MEDS: NICOTINE 21 MG/24 HOURS TOPICAL PATCH TD SCH (09:57)
[2018-05-19] MEDS ORDERED: METHADONE HCL 10 MG TABLET (FOR DETOX USE ONLY) PO SCH (10:00)
[2018-05-19] MEDS ORDERED: METHADONE HCL 10 MG TABLET PO SCH (10:00)
--- NOTE | 2018-05-19 13:18 | DS ---
Physical Examination Vital Signs: Vital Signs Temperature 98.8 F 05/19/18 05:23 Pulse Rate 97 H 05/19/18 05:23 Respiratory Rate 20 05/19/18 05:23 Blood Pressure 104/58 05/19/18 05:23 O2 Sat by Pulse Oximetry (%) 99 05/18/18 22:45 HENT: Yes: Atraumatic Neck: Yes: Supple Cardiovascular: Yes: Regular Rate and Rhythm Respiratory: Yes: CTA Bilaterally Gastrointestinal: Yes: Normal Bowel Sounds Extremities: Yes: WNL Edema: No Peripheral Pulses WNL: Yes Neurological: Yes: Alert, Oriented Labs: CBC, BMP 05/16/18 08:40 05/16/18 08:40 Discharge Summary Reason For Visit: ABSCESS/HIV/CELLUTIS PF RIGHT FOREARM Current Active Problems Abscess (Acute) Abscess of forearm, left (Acute) Abscess of left lower leg (Acute) HIV infection (Acute) Hepatitis C (Acute) Heroin dependence (Acute) MRSA (methicillin resistant Staphylococcus aureus) infection (Acute) Substance abuse (Acute) HIV (human immunodeficiency virus infection) (Chronic) Condition: Fair - Instructions Disposition: HOME - Home Medications Comprehensive Discharge Medication List: Ambulatory Orders Clindamycin [Cleocin -] 300 mg PO Q6HPO #28 capsule 05/19/18 dc home as per detox doctor [facility] monday continue po abx
[2018-05-19 14:48] VITALS: BP 106/60; PULSE 92; TEMP 98.3
[2018-05-20] MEDS ORDERED: METHADONE HCL 5 MG TABLET (FOR DETOX USE ONLY) PO SCH (06:00)
[2018-05-20] MEDS ORDERED: METHADONE HCL 5 MG TABLET PO SCH (06:00)
== END 2018-05-19 17:31 | disposition home or self-care (01) | DRG 383 ==
LOC: JER 15:23 → JERBED 22:52 → J7W 05-15 03:10
PROVIDERS: ADMIT Internal Medicine; ATTEND Internal Medicine
PROC: HZ2ZZZZ Detoxification Services for Substance Abuse Treatment (ICD-10-PCS; principal; 2018-05-15)
DX: L02.414 Cutaneous abscess of left upper limb (principal); L02.416 Cutaneous abscess of left lower limb; K74.60 Unspecified cirrhosis of liver; F17.210 Nicotine dependence, cigarettes, uncomplicated; J45.909 Unspecified asthma, uncomplicated; F19.10 Other psychoactive substance abuse, uncomplicated; R76.8 Other specified abnormal immunological findings in serum; F10.230 Alcohol dependence with withdrawal, uncomplicated; F11.23 Opioid dependence with withdrawal; B18.2 Chronic viral hepatitis C; F14.23 Cocaine dependence with withdrawal; F12.10 Cannabis abuse, uncomplicated; Z21 Asymptomatic human immunodeficiency virus [HIV] infection status; Z22.322 Carrier or suspected carrier of Methicillin resistant Staphylococcus aureus
CPT/HCPCS: 36415; 71046-TC-FY; 73110-TC-LR-FY; 80053; 81003; 83605; 85025; 85610; 86359; 86360; 87040; 87070; 87086; 87186; 87205; 93005; 93010; 99284-25; J1644; J7030

== ENCOUNTER 2018-11-18 09:17 | Inpatient (IN) | payer OTHER ==
[2018-11-18 11:55] VITALS: BMI 20.9
--- NOTE | 2018-11-18 13:16 | HP ---
CIWA Score Nausea/Vomitin-No Nausea/No Vomiting Muscle Tremors: 3 Anxiety: 2 Agitation: 3 Paroxysmal Sweats: 3 Orientation: 0-Oriented Tacttile Disturbances: 0-None Auditory Disturbances: 0-None Visual Disturbances: 0-None Headache: 1-Very Mild CIWA-Ar Total Score: 12 - Admission Criteria [facility] Guidelines: Admission for Medically Managed Detox: Requires at least one of the followin. CIWA greater than 12 2. Seizures within the past 24 hours 3. Delirium tremens within the past 24 hours 4. Hallucinations within the past 24 hours 5. Acute intervention needed for co occurring medical disorder 6. Acute intervention needed for co occurring psychiatric disorder 7. Severe withdrawal that cannot be handled at a lower level of care (continued vomiting, continued diarrhea, abnormal vital signs) requiring intravenous medication and/or fluids 8. Patient presents the following: CIWA greater than 12 Admission Criteria Met: Admission criteria met Admission ROS [facility] Chief Complaint: "I want detox" Allergies/Adverse Reactions: Allergies Allergy/AdvReac Type Severity Reaction Status Date / Time No Known Allergies Allergy Verified 05/14/18 18:46 History of Present Illness: 53 y/o male presents for detox from alcohol and cocaine. Pt understands he will be detoxed from alcohol only at this center. Pt's last visit was last year. Pt is in the [facility] methadone program (40mg) but admits using heroin daily on the street. Last used was yesterday. Pt understands that his maintenance dose is dependent upon verification. Denies Medical hx. Denies Seizures nor black outs. Denies SI/HI - Ebola screening Have you traveled outside of the country in the last 21 days: No (N) Have you had contact with anyone from an Ebola affected area: No Have you been sick,other than usual withdrawal symptoms: No Do you have a fever: No - Review of Systems Constitutional: Loss of Appetite, Unintentional Wgt. Loss EENT: reports: Blurred Vision, Nose Congestion Respiratory: reports: No Symptoms reported Cardiac: reports: No Symptoms Reported GI: reports: No Symptoms Reported : reports: No Symptoms Reported Musculoskeletal: reports: Back Pain, Joint Pain, Other (pain all over) Integumentary: reports: No Symptoms Reported Neuro: reports: No Symptoms reported Endocrine: reports: No Symptoms Reported Hematology: reports: No Symptoms Reported Psychiatric: reports: No Sypmtoms Reported, Orientated x3 Other Systems: Reviewed and Negative Patient History - Patient Medical History Hx Anemia: No Hx Asthma: Yes (not on meds) Hx Chronic Obstructive Pulmonary Disease (COPD): No Hx Cancer: No Hx Cardiac Disorders: No Hx Congestive Heart Failure: No Hx Hypertension: No Hx Hypercholesterolemia: No Hx Pacemaker: No HX Cerebrovascular Accident: No Hx Seizures: No Hx Dementia: No Hx Diabetes: No Hx Gastrointestinal Disorders: No Hx Liver Disease: No Hx Genitourinary Disorders: No Hx Sexually Transmitted Disorders: Yes (HIV+ HEP C) Hx Renal Disease (ESRD): No Hx Thyroid Disease: No Hx Human Immunodeficiency Virus (HIV): Yes (not on meds) Hx Hepatitis C: Yes Hx Depression: No Hx Suicide Attempt: No Hx Bipolar Disorder: No Hx Schizophrenia: Yes - Patient Surgical History Past Surgical History: No Hx Neurologic Surgery: No Hx Cataract Extraction: No Hx Cardiac Surgery: No Hx Lung Surgery: No Hx Breast Surgery: No Hx Breast Biopsy: No Hx Abdominal Surgery: No Hx Appendectomy: No Hx Cholecystectomy: No Hx Genitourinary Surgery: No Hx Section: No Hx Orthopedic Surgery: No Hx Hysterectomy: No Anesthesia Reaction: No - PPD History Results: CXR(-)11/03/16 PPD to be Administered?: No - Smoking Cessation Smoking history: Current every day smoker Have you smoked in the past 12 months: Yes Aproximately how many cigarettes per day: 20 Cigars Per Day: 0 Hx Chewing Tobacco Use: No Initiated information on smoking cessation: Yes 'Breaking Loose' booklet given: 11/18/18 - Substance & Tx. History Hx Alcohol Use: Yes Hx Substance Use: Yes Substance Use Type: Cocaine, Heroin Hx Substance Use Treatment: Yes - Substances Abused Alcohol Route: Oral Frequency: Daily Amount used: 2 (6 packs) Age of first use: 12 Date of Last Use: 11/17/18 Heroin Route: Injection Frequency: Daily Amount used: $ 100 Age of first use: 12 Date of Last Use: 11/17/18 Cocaine Route: Injection Frequency: Daily Amount used: $100 Age of first use: 12 Date of Last Use: 11/17/18 Family Disease History - Family Disease History Family Disease History: Diabetes: Mother () Admission Physical Exam [facility] - Vital Signs Vital Signs: Vital Signs - 24 hr 11/18/18 11:52 Temperature 96.2 F L Pulse Rate 86 Respiratory 18 Rate Blood Pressure 136/82 - Physical General Appearance: Yes: Mild Distress, Irritable, Anxious HEENTM: Yes: Within Normal Limits, Nasal Congestion Respiratory: Yes: Lungs Clear, Normal Breath Sounds, No Respiratory Distress, No Accessory Muscle Use Neck: Yes: Trachea in good position, Other (Track salmeron to L anterior aspect) Breast: Yes: Breast Exam Deferred Cardiology: Yes: Within Normal Limits, Regular Rate Abdominal: Yes: Normal Bowel Sounds, Non Tender, Soft Genitourinary: Yes: Within Normal Limits Back: Yes: Normal Inspection Musculoskeletal: Yes: full range of Motion, Gait Steady Extremities: Yes: Normal Capillary Refill, Normal Inspection, Normal Range of Motion, Other (track sena to L arm, b/l hands swollen) Neurological: Yes: Fully Oriented, Alert, Motor Strength 5/5, Normal Response Integumentary: Yes: Normal Color, Warm, Track Salmeron - Diagnostic (1) Alcohol dependence, uncomplicated Current Visit: Yes Status: Acute (2) Nicotine dependence Current Visit: Yes Status: Chronic Qualifiers: Nicotine product type: cigarettes Substance use status: in withdrawal Qualified Code(s): F17.213 - Nicotine dependence, cigarettes, with withdrawal (3) Methadone maintenance therapy patient Current Visit: Yes Status: Chronic (4) Asthma Current Visit: Yes Status: Chronic Qualifiers: (5) Cocaine dependence Current Visit: Yes Status: Chronic Qualifiers: Substance use status: in withdrawal Qualified Code(s): F14.23 - Cocaine dependence with withdrawal (6) Drug-induced mood disorder Current Visit: Yes Status: Suspected (7) HIV (human immunodeficiency virus infection) Current Visit: Yes Status: Chronic Comment: last dose "months" ago (8) Hepatitis C antibody test positive Current Visit: Yes Status: Chronic Cleared for Admission S - Detox or Rehab [facility] Level of Care: Medically Managed [facility] Breath Alcohol Content Breath Alcohol Content: 0 Urine Drug Screen - Results Drug Screen Negative: No Urine Drug Screen Results: EMILIA-Cocaine, OPI-Opiates, MTD-Methadone, FEN-Fentanyl Inpatient Rehab Admission - Rehab Decision to Admit Inpatient rehab admission?: No
[2018-11-18] MEDS ORDERED: ACETAMINOPHEN 325 MG TABLET (FP) PO PRN (13:35)
[2018-11-18] MEDS ORDERED: NICOTINE POLACRILEX 2 MG GUM BC PRN (13:35)
[2018-11-18] MEDS ORDERED: LOPERAMIDE HCL 2 MG CAPSULE PO PRN (13:35)
[2018-11-18] MEDS ORDERED: MENTHOL/PHENOL 1 EACH UD MM PRN (13:35)
[2018-11-18] MEDS ORDERED: guaiFENesin/D-METHORPHAN HB 10 ML UNIT-DOSE CUPS PO PRN (13:35)
[2018-11-18] MEDS ORDERED: P-EPHED 60MG/TRIPROLIDI 2.5MG TABLET PO PRN (13:35)
[2018-11-18] MEDS ORDERED: MAG HYDROX/AL HYDROX/SIMETH 30 ML UNIT-DOSE CUP PO PRN (13:35)
[2018-11-18] MEDS ORDERED: IBUPROFEN 400 MG TABLET (FP) PO PRN (13:35)
[2018-11-18] MEDS ORDERED: MAGNESIUM CITRATE 300 ML BOTTLE PO PRN (13:35)
[2018-11-18] MEDS ORDERED: chlordiazePOXIDE HCL 25 MG CAPSULE PO PRN (13:35)
[2018-11-18] MEDS ORDERED: MAGNESIUM HYDROX 2400MG/30ML ORAL SUSPENSION 30 ML CUP PO PRN (13:35)
[2018-11-18] MEDS: NICOTINE 21 MG/24 HOURS TOPICAL PATCH TD SCH (14:57)
[2018-11-18] MEDS: chlordiazePOXIDE HCL 25 MG CAPSULE PO SCH ×2 (17:30→22:27)
[2018-11-18] MEDS: THIAMINE HCL 100 MG TABLET (FP) PO SCH (22:27)
[2018-11-19] MEDS ORDERED: METHADONE HCL 10 MG TABLET PO SCH (07:30)
[2018-11-19] MEDS: chlordiazePOXIDE HCL 25 MG CAPSULE PO SCH ×4 (07:43→22:22)
--- NOTE | 2018-11-19 09:20 | PN ---
[facility] CIWA - CIWA Score Nausea/Vomitin-Mild Nausea/No Vomiting Muscle Tremors: 3 Anxiety: 3 Agitation: 2 Paroxysmal Sweats: 1-Minimal Palms Moist Orientation: 1-Uncertain about Date Tacttile Disturbances: 0-None Auditory Disturbances: 0-None Visual Disturbances: 0-None Headache: 2-Mild CIWA-Ar Total Score: 13 [facility] Progress Note (SOAP) Subjective: patient takes methadone 40 mg po daily last dose 11/04/18 discontinue methadone 40mg begin 20 mg today 30 mg 11/20 40 mg 11/21 and 11/22 tremor sweating trouble sleep through the night Objective: 11/19/18 09:34 Vital Signs Temperature 98.9 F 11/19/18 09:18 Pulse Rate 88 11/19/18 09:18 Respiratory Rate 18 11/19/18 09:18 Blood Pressure 141/88 11/19/18 09:18 O2 Sat by Pulse Oximetry (%) 11/19/18 09:34 lab pending Assessment: 11/19/18 09:34 withdrawal sx Plan: continue detox
[2018-11-19 09:50] LABS: HEMATOCRIT 36.7 % (35.4-49); HEMOGLOBIN 12.5 GM/dL (11.7-16.9); MCH 26.9 pg (25.7-33.7); MCHC 33.9 g/dl (32.0-35.9); MEAN CELL VOLUME 79.3 fl (80-96); MEAN PLT VOLUME 7.7 fl (7.5-11.1); PLATELET COUNT 168 K/MM3 (134-434); RBC 4.63 M/mm3 (4.00-5.60); RDW 15.9 % (11.9-15.9); WHITE BLOOD COUNT 3.7 K/mm3 (4.0-10.0)
[2018-11-19] MEDS ORDERED: METHADONE HCL 10 MG TABLET PO ONE (10:00)
[2018-11-19 10:27] LABS: ALBUMIN 3.4 g/dl (3.4-5.0); ALK PHOS 74 U/L (45-117); ANION GAP 8 MMOL/L (8-16); BLOOD UREA NITROGEN 13 mg/dL (7-18); CALCIUM 9.1 mg/dL (8.5-10.1); CHLORIDE 104 mmol/L (98-107); CO2 25 mmol/L (21-32); GLUCOSE,RANDOM 195 mg/dL (74-106); POTASSIUM 3.4 mmol/L (3.5-5.1); SGOT/AST 45 U/L (15-37); SGPT/ALT 52 U/L (13-61); SODIUM 137 mmol/L (136-145); TOT PROT 6.9 g/dl (6.4-8.2)
[2018-11-19] MEDS: PRENATAL VITAMINS W/ FOLIC ACID TABLET (FP) PO SCH (11:05)
[2018-11-19] MEDS: NICOTINE 21 MG/24 HOURS TOPICAL PATCH TD SCH (11:05)
[2018-11-19] MEDS: THIAMINE HCL 100 MG TABLET (FP) PO SCH (22:21)
[2018-11-19] MEDS: MELATONIN 5 MG TABLETS PO PRN (22:34)
[2018-11-20] MEDS: chlordiazePOXIDE HCL 25 MG CAPSULE PO SCH ×2 (05:18→10:12)
[2018-11-20] MEDS ORDERED: METHADONE HCL 10 MG TABLET PO ONE (10:00)
[2018-11-20] MEDS ORDERED: RIFABUTIN 150 MG CAPSULE PO SCH (10:00)
[2018-11-20] MEDS ORDERED: POTASSIUM CHLORIDE TABS 20 MEQ TABLET.ER (FP) PO SCH (10:00)
--- NOTE | 2018-11-20 10:01 | PN ---
S CIWA - CIWA Score Nausea/Vomitin-Mild Nausea/No Vomiting Muscle Tremors: 2 Anxiety: 3 Agitation: 2 Paroxysmal Sweats: 1-Minimal Palms Moist Orientation: 1-Uncertain about Date Tacttile Disturbances: 0-None Auditory Disturbances: 0-None Visual Disturbances: 0-None Headache: 2-Mild CIWA-Ar Total Score: 12 S Progress Note (SOAP) Subjective: tremor sweating right deep cervical lymph node swell 1 cm round in diameter immobile skin color denies trouble breathing denies trouble swallowing alert low fever begin bactrim ds bid increase oral fluid move to close nurse station Objective: 11/20/18 10:00 Vital Signs Temperature 99.0 F 11/20/18 09:18 Pulse Rate 90 11/20/18 09:18 Respiratory Rate 18 11/20/18 09:18 Blood Pressure 121/81 11/20/18 09:18 O2 Sat by Pulse Oximetry (%) Laboratory Last Values WBC 3.7 K/mm3 (4.0-10.0) L 11/19/18 07:50 RBC 4.63 M/mm3 (4.00-5.60) 11/19/18 07:50 Hgb 12.5 GM/dL (11.7-16.9) 11/19/18 07:50 Hct 36.7 % (35.4-49) 11/19/18 07:50 MCV 79.3 fl (80-96) L 11/19/18 07:50 MCH 26.9 pg (25.7-33.7) 11/19/18 07:50 MCHC 33.9 g/dl (32.0-35.9) 11/19/18 07:50 RDW 15.9 % (11.9-15.9) 11/19/18 07:50 Plt Count 168 K/MM3 (134-434) D 11/19/18 07:50 MPV 7.7 fl (7.5-11.1) 11/19/18 07:50 Sodium 137 mmol/L (136-145) 11/19/18 07:50 Potassium 3.4 mmol/L (3.5-5.1) L 11/19/18 07:50 Chloride 104 mmol/L (98-107) 11/19/18 07:50 Carbon Dioxide 25 mmol/L (21-32) 11/19/18 07:50 Anion Gap 8 MMOL/L (8-16) 11/19/18 07:50 BUN 13 mg/dL (7-18) 11/19/18 07:50 Creatinine 1.0 mg/dL (0.55-1.3) 11/19/18 07:50 Creat Clearance w eGFR > 60 (>60) 11/19/18 07:50 Random Glucose 195 mg/dL (74-106) H 11/19/18 07:50 Calcium 9.1 mg/dL (8.5-10.1) 11/19/18 07:50 Total Bilirubin 1.0 mg/dL (0.2-1) 11/19/18 07:50 AST 45 U/L (15-37) H 11/19/18 07:50 ALT 52 U/L (13-61) 11/19/18 07:50 Alkaline Phosphatase 74 U/L (45-117) 11/19/18 07:50 Total Protein 6.9 g/dl (6.4-8.2) 11/19/18 07:50 Albumin 3.4 g/dl (3.4-5.0) 11/19/18 07:50 RPR Titer Nonreactive (NONREACTIVE) 11/19/18 07:50 lab noted patient admitted none compliance with ART medication unknown CD cell count Assessment: 11/20/18 10:01 withdrawal sx HIV lymphadenopathy Plan: continue detox
[2018-11-20] MEDS: PRENATAL VITAMINS W/ FOLIC ACID TABLET (FP) PO SCH (10:11)
[2018-11-20] MEDS: SULFAMETHOXAZOLE/TRIMETHOPRIM 800MG/160MG D.S. TABLET PO SCH ×2 (10:11→22:34)
[2018-11-20] MEDS: NICOTINE 21 MG/24 HOURS TOPICAL PATCH TD SCH (10:14)
[2018-11-20] MEDS ORDERED: BACITRACIN 0.9 GM PACKET TP SCH (11:30)
[2018-11-20] MEDS: chlordiazePOXIDE 5 MG CAPSULE PO SCH ×2 (17:53→22:34)
[2018-11-20] MEDS: THIAMINE HCL 100 MG TABLET (FP) PO SCH (22:34)
[2018-11-20] MEDS: MELATONIN 5 MG TABLETS PO PRN (22:35)
[2018-11-21] MEDS: chlordiazePOXIDE 5 MG CAPSULE PO SCH (05:18)
[2018-11-21] MEDS ORDERED: METHADONE HCL 40 MG DISPERSABLE TABLET PO ONE (06:00)
[2018-11-21 06:21] VITALS: BP 114/76; PULSE 76; TEMP 97.8
--- NOTE | 2018-11-21 15:29 | DS ---
[facility] Detox Discharge Summary Admission Date: 11/18/18 Discharge Date: 11/21/18 - History Present History: Alcohol Dependence Additional Comments: 53 years old male admitted on 11/18/18 for alcohol withdrawal stabilization completed detox regimen aftercare Pertinent Past History: patient preferred return to methadone program for medical and mental issues encourage bring medication list to aftercare appointments - Physical Exam Results Vital Signs: Vital Signs Temperature 97.8 F 11/21/18 06:20 Pulse Rate 76 11/21/18 06:20 Respiratory Rate 18 11/21/18 06:20 Blood Pressure 114/76 11/21/18 06:20 O2 Sat by Pulse Oximetry (%) Pertinent Admission Physical Exam Findings: alcohol withdrawal sx Laboratory Last Values WBC 3.7 K/mm3 (4.0-10.0) L 11/19/18 07:50 RBC 4.63 M/mm3 (4.00-5.60) 11/19/18 07:50 Hgb 12.5 GM/dL (11.7-16.9) 11/19/18 07:50 Hct 36.7 % (35.4-49) 11/19/18 07:50 MCV 79.3 fl (80-96) L 11/19/18 07:50 MCH 26.9 pg (25.7-33.7) 11/19/18 07:50 MCHC 33.9 g/dl (32.0-35.9) 11/19/18 07:50 RDW 15.9 % (11.9-15.9) 11/19/18 07:50 Plt Count 168 K/MM3 (134-434) D 11/19/18 07:50 MPV 7.7 fl (7.5-11.1) 11/19/18 07:50 Sodium 137 mmol/L (136-145) 11/19/18 07:50 Potassium 3.4 mmol/L (3.5-5.1) L 11/19/18 07:50 Chloride 104 mmol/L (98-107) 11/19/18 07:50 Carbon Dioxide 25 mmol/L (21-32) 11/19/18 07:50 Anion Gap 8 MMOL/L (8-16) 11/19/18 07:50 BUN 13 mg/dL (7-18) 11/19/18 07:50 Creatinine 1.0 mg/dL (0.55-1.3) 11/19/18 07:50 Creat Clearance w eGFR > 60 (>60) 11/19/18 07:50 Random Glucose 195 mg/dL (74-106) H 11/19/18 07:50 Calcium 9.1 mg/dL (8.5-10.1) 11/19/18 07:50 Total Bilirubin 1.0 mg/dL (0.2-1) 11/19/18 07:50 AST 45 U/L (15-37) H 11/19/18 07:50 ALT 52 U/L (13-61) 11/19/18 07:50 Alkaline Phosphatase 74 U/L (45-117) 11/19/18 07:50 Total Protein 6.9 g/dl (6.4-8.2) 11/19/18 07:50 Albumin 3.4 g/dl (3.4-5.0) 11/19/18 07:50 RPR Titer Nonreactive (NONREACTIVE) 11/19/18 07:50 lab noted - Treatment Hospital Course: Detox Protocol Followed, Detoxed Safely, Responded well, Discharged Condition Good, Rehab Referral Accepted Patient has Accepted a Rehab Referral to: methadone maintenance program - Medication Discharge Medications: Ambulatory Orders Methadone [Dolophine -] 40 mg PO DAILY 11/18/18 - Diagnosis (1) HIV infection Status: Chronic Qualifiers: HIV symptom status: asymptomatic Qualified Code(s): Z21 - Asymptomatic human immunodeficiency virus [HIV] infection status (2) Hepatitis C Status: Chronic Qualifiers: Viral hepatitis chronicity: chronic Hepatic coma status: without hepatic coma Qualified Code(s): B18.2 - Chronic viral hepatitis C (3) Alcohol dependence with uncomplicated withdrawal Status: Acute (4) Asthma Status: Chronic Qualifiers: Asthma severity: mild Asthma persistence: intermittent Asthma complication type: with status asthmaticus Qualified Code(s): J45.22 - Mild intermittent asthma with status asthmaticus (5) GERD (gastroesophageal reflux disease) Status: Chronic Qualifiers: Esophagitis presence: without esophagitis Qualified Code(s): K21.9 - Gastro -esophageal reflux disease without esophagitis (6) Hepatitis C antibody test positive Status: Chronic (7) Methadone maintenance therapy patient Status: Chronic - AMA Did Patient Leave Against Medical Advice: No
[2018-11-21] MEDS ORDERED: chlordiazePOXIDE HCL 10 MG CAPSULE PO SCH (17:00)
[2018-11-22] MEDS ORDERED: METHADONE HCL 40 MG DISPERSABLE TABLET PO ONE (06:00)
== END 2018-11-21 09:46 | disposition home or self-care (01) | DRG 773 ==
LOC: YASAS 09:17 → Y3N 14:16
PROVIDERS: ADMIT Surgery; ATTEND Surgery
PROC: HZ2ZZZZ Detoxification Services for Substance Abuse Treatment (ICD-10-PCS; principal; 2018-11-18)
DX: F10.230 Alcohol dependence with withdrawal, uncomplicated (principal); F11.20 Opioid dependence, uncomplicated; F14.20 Cocaine dependence, uncomplicated; F17.213 Nicotine dependence, cigarettes, with withdrawal; F19.24 Other psychoactive substance dependence with psychoactive substance-induced mood disorder; B20 Human immunodeficiency virus [HIV] disease; B18.2 Chronic viral hepatitis C; J45.22 Mild intermittent asthma with status asthmaticus; K21.9 Gastro-esophageal reflux disease without esophagitis; R59.1 Generalized enlarged lymph nodes
CPT/HCPCS: 36415; 71046-TC-FY; 80053; 85027; 86593

== ENCOUNTER 2019-02-03 08:25 | Inpatient (IN) | payer OTHER ==
[2019-02-03 09:22] VITALS: BMI 19.8
--- NOTE | 2019-02-03 10:01 | HP ---
<Chelsie Wong - Last Filed: 02/04/19 09:40> CIWA Score - Admission Criteria [facility]AS Guidelines: Admission for Medically Managed Detox: Requires at least one of the followin. CIWA greater than 12 2. Seizures within the past 24 hours 3. Delirium tremens within the past 24 hours 4. Hallucinations within the past 24 hours 5. Acute intervention needed for co occurring medical disorder 6. Acute intervention needed for co occurring psychiatric disorder 7. Severe withdrawal that cannot be handled at a lower level of care (continued vomiting, continued diarrhea, abnormal vital signs) requiring intravenous medication and/or fluids 8. Admission ROS [facility] - HPI Allergies/Adverse Reactions: Allergies Allergy/AdvReac Type Severity Reaction Status Date / Time No Known Allergies Allergy Verified 02/03/19 09:17 Admission Physical Exam S - Vital Signs Vital Signs: Vital Signs - 24 hr 02/03/19 02/03/19 02/04/19 17:13 21:20 00:30 Temperature 97.0 F L 98.5 F Pulse Rate 87 78 Respiratory 20 18 18 Rate Blood Pressure 142/88 125/87 02/04/19 02/04/19 02/04/19 03:30 06:33 09:12 Temperature 97.3 F L 98.7 F Pulse Rate 65 78 Respiratory 18 18 16 Rate Blood Pressure 136/83 115/70 <Thu Gomez - Last Filed: 02/05/19 08:43> COWS - Scale Resting Pulse: 1= [place] 81-100 Sweatin= Chills/Flushing Restless Observation: 3= Extraneous Movement Pupil Size: 1= Pupils >than Normal Bone or Joint Aches: 2= Severe Diffuse Aches Runny Nose/ Eye Tearin= Runny Nose/Eyes GI Upset > 30mins: 2= Nausea/Diarrhea Tremor Observation: 2= Slight Tremor Visible Yawning Observation: 2= >3x During Session Anxiety or Irritability: 2=Irritable/Anxious Goose Flesh Skin: 0=Smooth Skin COWS Score: 18 CIWA Score Nausea/Vomitin Muscle Tremors: 2 Anxiety: 3 Agitation: 3 Paroxysmal Sweats: 1-Minimal Palms Moist Orientation: 0-Oriented Tacttile Disturbances: 1-Very Mild Itch/Numbness Auditory Disturbances: 1-Very Mild Visual Disturbances: 0-None Headache: 2-Mild CIWA-Ar Total Score: 15 - Admission Criteria [facility]ASAS Guidelines: Admission for Medically Managed Detox: Requires at least one of the followin. CIWA greater than 12 2. Seizures within the past 24 hours 3. Delirium tremens within the past 24 hours 4. Hallucinations within the past 24 hours 5. Acute intervention needed for co occurring medical disorder 6. Acute intervention needed for co occurring psychiatric disorder 7. Severe withdrawal that cannot be handled at a lower level of care (continued vomiting, continued diarrhea, abnormal vital signs) requiring intravenous medication and/or fluids 8. Admission ROS [facility] - HPI Chief Complaint: i need help to stop using heroin,alcohol and cocaine History of Present Illness: this 53 years old male with heroin,alcohol and cocaine dependence,seeking detox, withdrawal symptom multiple admissions in detox but relapsing last detox 11/18/18 to 11/21/18 hepatitis c nicotine dependence 1 pack/requesting nicotine gum weight loss longest sobriety 7 years plan to go to rehab asthma hiv schizophrenia Exam Limitations: No Limitations - Ebola screening Have you traveled outside of the country in the last 21 days: No (N) Have you had contact with anyone from an Ebola affected area: No Do you have a fever: No - Review of Systems Constitutional: Chills, Malaise, Night Sweats, Changes in sleep, Weakness, Unintentional Wgt. Loss EENT: reports: Tearing, Nose Congestion Respiratory: reports: No Symptoms reported Cardiac: reports: No Symptoms Reported GI: reports: Diarrhea, Nausea, Vomiting, Abdominal cramping : reports: No Symptoms Reported Musculoskeletal: reports: Back Pain, Joint Pain, Muscle Pain, Joint Stiffness Neuro: reports: Headache, Tremors Endocrine: reports: No Symptoms Reported Hematology: reports: No Symptoms Reported Psychiatric: reports: No Sypmtoms Reported, Judgement Intact, Mood/Affect Appropiate, Orientated x3 Other Systems: Reviewed and Negative Patient History - Patient Medical History Hx Anemia: No Hx Asthma: Yes (not on meds) Hx Chronic Obstructive Pulmonary Disease (COPD): No Hx Cancer: No Hx Cardiac Disorders: No Hx Congestive Heart Failure: No Hx Hypertension: No Hx Hypercholesterolemia: No Hx Pacemaker: No HX Cerebrovascular Accident: No Hx Seizures: No Hx Dementia: No Hx Diabetes: No Hx Gastrointestinal Disorders: No Hx Liver Disease: No Hx Genitourinary Disorders: No Hx Sexually Transmitted Disorders: Yes (HIV+ HEP C) Hx Renal Disease (ESRD): No Hx Thyroid Disease: No Hx Human Immunodeficiency Virus (HIV): Yes (not on meds) Hx Hepatitis C: Yes (no treatment) Hx Depression: No Hx Suicide Attempt: No Hx Bipolar Disorder: No Hx Schizophrenia: Yes Other Medical History: no suicidal,no homicidal - Patient Surgical History Past Surgical History: No Hx Neurologic Surgery: No Hx Cataract Extraction: No Hx Cardiac Surgery: No Hx Lung Surgery: No Hx Breast Surgery: No Hx Breast Biopsy: No Hx Abdominal Surgery: No Hx Appendectomy: No Hx Cholecystectomy: No Hx Genitourinary Surgery: No Hx Section: No Hx Orthopedic Surgery: No Hx Hysterectomy: No Anesthesia Reaction: No - PPD History Previous Implant?: No Documented Results: Positive w/o proof Results: CXR(-)11/20/18 PPD to be Administered?: No - Smoking Cessation Smoking history: Current every day smoker Have you smoked in the past 12 months: Yes Aproximately how many cigarettes per day: 20 Cigars Per Day: 0 Hx Chewing Tobacco Use: No Initiated information on smoking cessation: Yes 'Breaking Loose' booklet given: 02/03/19 - Substance & Tx. History Hx Alcohol Use: Yes Hx Substance Use: Yes Substance Use Type: Alcohol, Cocaine, Heroin Hx Substance Use Treatment: Yes ([facility]11/18/18 to 11/21/18) - Substances abused Alcohol Substance route: Oral Frequency: Daily Amount used: 6 cans of beer Age of first use: 12 Date of last use: 02/02/19 Heroin Substance route: Injection Frequency: Daily Amount used: $100 Age of first use: 12 Date of last use: 02/02/19 Cocaine Substance route: Injection Frequency: Daily Amount used: $100 Age of first use: 12 Date of last use: 02/02/19 Family Disease History - Family Disease History Family Disease History: Diabetes: Mother () Admission Physical Exam [facility] - Vital Signs Vital Signs: Vital Signs - 24 hr 02/03/19 02/03/19 09:18 09:36 Temperature 98.8 F 98.8 F Pulse Rate 81 81 Respiratory 18 18 Rate Blood Pressure 131/86 131/86 - Physical General Appearance: Yes: Moderate Distress, Tremorous, Irritable, Sweating, Anxious HEENTM: Yes: Normal ENT Inspection, HEATHER, Pharynx Normal Respiratory: Yes: Within Normal Limits, Lungs Clear, Normal Breath Sounds Neck: Yes: Within Normal Limits, Supple, Trachea in good position Breast: Yes: Within Normal Limits Cardiology: Yes: Within Normal Limits, Regular Rhythm, Regular Rate, S1, S2 Abdominal: Yes: Within Normal Limits, Normal Bowel Sounds, Non Tender, Soft Genitourinary: Yes: Within Normal Limits Back: Yes: Muscle Spasm Musculoskeletal: Yes: Back pain, Joint Stiffness, Muscle Pain Extremities: Yes: Tremors 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 NML intact, Fully Oriented, Alert, Motor Strength 5/5 Integumentary: Yes: Dry, Track Patel Lymphatic: Yes: Within Normal Limits - Diagnostic (1) Opioid dependence with withdrawal Current Visit: Yes Status: Acute (2) Asthma Current Visit: No Status: Chronic Qualifiers: Asthma severity: mild Asthma persistence: intermittent Asthma complication type: with status asthmaticus Qualified Code(s): J45.22 - Mild intermittent asthma with status asthmaticus (3) BPH (benign prostatic hyperplasia) Current Visit: No Status: Chronic (4) Cocaine dependence Current Visit: Yes Status: Chronic Qualifiers: Substance use status: in withdrawal Qualified Code(s): F14.23 - Cocaine dependence with withdrawal (5) GERD (gastroesophageal reflux disease) Current Visit: No Status: Chronic Qualifiers: Esophagitis presence: without esophagitis Qualified Code(s): K21.9 - Gastro -esophageal reflux disease without esophagitis (6) HIV (human immunodeficiency virus infection) Current Visit: No Status: Chronic Comment: last dose "months" ago (7) IVDU (intravenous drug user) Current Visit: Yes Status: Acute (8) Alcohol dependence with uncomplicated withdrawal Current Visit: Yes Status: Acute Cleared for Admission [facility] - Detox or Rehab [facility] Level of Care: Medically Managed Detox Regimen/Protocol: Methadone/Librium Breathalyzer - Breathalyzer Breathalyzer: 0 Urine Drug Screen - Test Device Lot number: [id number] Expiration date: 09/07/20 - Results Drug screen NEGATIVE: No Urine drug screen results: THC-Marijuana, EMILIA-Cocaine, FEN-Fentanyl, MOP-Opiates , BZO-Benzodiazepines Inpatient Rehab Admission - Rehab Decision to Admit Inpatient rehab admission?: No
[2019-02-03] MEDS ORDERED: cloNIDine HCL 0.1 MG TABLET PO PRN (10:14)
[2019-02-03] MEDS ORDERED: MENTHOL/PHENOL 1 EACH UD MM PRN (10:14)
[2019-02-03] MEDS ORDERED: MAGNESIUM CITRATE 300 ML BOTTLE PO PRN (10:14)
[2019-02-03] MEDS ORDERED: hydrOXYzine PAMOATE 25 MG CAPSULE (FP) PO PRN (10:14)
[2019-02-03] MEDS ORDERED: BISMUTH SUBSALICYLATE 524 MG/30 ML UD PO PRN (10:14)
[2019-02-03] MEDS ORDERED: NICOTINE POLACRILEX 2 MG GUM BUC PRN (10:14)
[2019-02-03] MEDS ORDERED: MAGNESIUM HYDROX 2400MG/30ML ORAL SUSPENSION 30 ML CUP PO PRN (10:14)
[2019-02-03] MEDS ORDERED: MAG HYDROX/AL HYDROX/SIMETH 30 ML UNIT-DOSE CUP PO PRN (10:14)
[2019-02-03] MEDS ORDERED: ACETAMINOPHEN 325 MG TABLET (FP) PO PRN ×2 (10:14)
[2019-02-03] MEDS ORDERED: METHADONE HCL 10 MG TABLET (FOR DETOX USE ONLY) PO ONE ×2 (10:17→23:00)
[2019-02-03] MEDS ORDERED: ALBUTEROL SO4 8 GM HFA INHALER IH PRN (10:23)
[2019-02-03] MEDS: chlordiazePOXIDE HCL 25 MG CAPSULE PO PRN (11:37)
[2019-02-03] MEDS: chlordiazePOXIDE HCL 25 MG CAPSULE PO SCH ×2 (17:16→22:06)
[2019-02-03] MEDS: THIAMINE HCL 100 MG TABLET (FP) PO SCH (22:06)
[2019-02-04] MEDS: chlordiazePOXIDE HCL 25 MG CAPSULE PO SCH ×4 (05:56→22:17)
[2019-02-04] MEDS ORDERED: METHADONE HCL 10 MG TABLET (FOR DETOX USE ONLY) PO ONE (10:00)
[2019-02-04] MEDS: PRENATAL VITAMINS W/ FOLIC ACID TABLET (FP) PO SCH (10:01)
[2019-02-04] MEDS ORDERED: ALBUTEROL SO4 8 GM HFA INHALER IH PRN (10:21)
--- NOTE | 2019-02-04 10:55 | PN ---
[facility] CIWA - CIWA Score Nausea/Vomitin-Mild Nausea/No Vomiting Muscle Tremors: 3 Anxiety: 3 Agitation: 3 Paroxysmal Sweats: 1-Minimal Palms Moist Orientation: 2-Disoriented Date<2 days Tacttile Disturbances: 0-None Auditory Disturbances: 0-None Visual Disturbances: 0-None Headache: 1-Very Mild CIWA-Ar Total Score: 14 S COWS - Scale Resting Pulse: 0= [place] 80 or Below Sweatin= Chills/Flushing Restless Observation: 0= Sits Still Pupil Size: 0= Normal to Room Light Bone or Joint Aches: 1= Mild Discomfort Runny Nose/ Eye Tearin= Nasal Congestion GI Upset > 30mins: 2= Nausea/Diarrhea Tremor Observation of Outstretched Hands: 2= Slight Tremor Visible Yawning Observation: 2= >3x During Session Anxiety or Irritability: 2=Irritable/Anxious Goose Flesh Skin: 3=Piloerection COWS Score: 14 [facility] Progress Note (SOAP) Subjective: doing well with librium and methadone detox regimen resting on bed with mild body aches Objective: 02/04/19 11:16 Vital Signs Temperature 98.7 F 02/04/19 09:12 Pulse Rate 78 02/04/19 09:12 Respiratory Rate 16 02/04/19 09:12 Blood Pressure 115/70 02/04/19 09:12 O2 Sat by Pulse Oximetry (%) lab pending Assessment: 02/04/19 11:17 alcohol and opiate withdrawal sx Plan: continue detox
[2019-02-04] MEDS: BUDESONIDE/FORMETEROL FUMARATE 80/4.5 mcg INHALER IH SCH ×2 (11:23→22:20)
--- NOTE | 2019-02-04 14:27 | CONSULT ---
[facility] Psychiatric Consult - Data Date of interview: 02/04/19 Admission source: [facility] Identifying data: Readmission to [facility] for this 53 y/o male self- referred for detoxification (heroin, cocaine). Examined at [address] [place] [address]. Patient is single, no dependents, homeless, unemployed and supported [facility]. Substance Abuse History: Confirmed by the patient in this examination. Details in [facility] report as follows : Smoking history: Current every day smoker. Have you smoked in the past 12 months: Yes. Aproximately how many cigarettes per day: 20. Cigars Per Day: 0. Hx Chewing Tobacco Use: No. Initiated information on smoking cessation: Yes. 'Breaking Loose' booklet given: . - Substance & Tx. History. Hx Alcohol Use: Yes. Hx Substance Use: Yes. Substance Use Type: Alcohol, Cocaine, Heroin. Hx Substance Use Treatment: Yes ( [facility] to 11/21/18). - Substances abused. Alcohol. Substance route: Oral. Frequency: Daily. Amount used: 6 cans of beer. Age of first use: 12. Date of last use: 02/02/19. Heroin. Substance route: Injection. Frequency : Daily. Amount used: $100. Age of first use: 12. Date of last use: . Cocaine. Substance route: Injection. Frequency: Daily. Amount used: $ 100. Age of first use: 12. Date of last use: 02/02/19 Medical History: Medical profile is remarkable for HIV infection since age 32 ( on antiretroviral medications), benign prostatic hyperplasia (BPH), GERD, antecedent of MERSA (methicillin-resistant staphylococcus aureus), hepatitis C, chronic lumbar pain and bronchial asthma. Psychiatric History: First psychiatric meltdown occurred three decades ago, at the news of his seropositivity for HIV (was committed to a psychiatric institution in [place]). Mr Steinberg endorses a history of multiple psychiatric hospitalizations + numerous CPEP visits (observed but not admiited) . Patient is known to [facility] and [facility]. He used to see Dr Harper at the [facility] in the [place] for medication management (abilify + xanax + elavil). Dropped out of psychiatric OPD care. No contact with psychiatric care providers for months. Patient denies history of suicide attempts. Physical/Sexual Abuse/Trauma History: Patient denies. Additional Comment: Urine drug screen results: THC-Marijuana, EMILIA-Cocaine, FEN- Fentanyl, MOP-Opiates, BZO-Benzodiazepines. Noted. Mental Status Exam - Mental Status Exam Alert and Oriented to: Time, Place, Person Cognitive Function: Good Patient Appearance: Well Groomed Mood: Hostile, Withdrawn, Anxious, Irritable Affect: Mood Congruent Patient Behavior: Fatigued, Guarded, Cooperative (marginally cooperative) Speech Pattern: Clear, Appropriate Voice Loudness: Normal Thought Process: Goal Oriented Thought Disorder: Not Present Hallucinations: Denies Suicidal Ideation: Denies Homicidal Ideation: Denies Insight/Judgement: Poor Sleep: Poorly, Difficulty falling asleep Appetite: Fair Muscle strength/Tone: Normal Gait/Station: Normal Psychiatric Findings - Problem List ([place] 1, 2,3) (1) Alcohol dependence with uncomplicated withdrawal Current Visit: Yes Status: Acute (2) Opioid dependence with withdrawal Current Visit: Yes Status: Acute (3) Cocaine dependence Current Visit: Yes Status: Chronic Qualifiers: Substance use status: in withdrawal Qualified Code(s): F14.23 - Cocaine dependence with withdrawal (4) Nicotine dependence Current Visit: Yes Status: Chronic Qualifiers: Nicotine product type: cigarettes Substance use status: in withdrawal Qualified Code(s): F17.213 - Nicotine dependence, cigarettes, with withdrawal (5) Drug-induced mood disorder Current Visit: Yes Status: Chronic (6) Schizoaffective disorder Current Visit: Yes Status: Chronic Comment: As per history. (7) Insomnia Current Visit: Yes Status: Chronic (8) Non-compliance Current Visit: Yes Status: Chronic - Initial Treatment Plan Initial Treatment Plan: Psychoeducation. Sleep hygiene. Support. Detoxification. Patient agrees to take " no more than 25 mg of seroquel " to facilitate sleep. Declines all alternate hypnotic medications discussed in this session. Side effects/benefits discussed ith patient. Consent (verbal) given to MD. Benites.
[2019-02-04] MEDS: QUEtiapine FUMARATE 25 MG TABLET (FP) PO SCH (22:17)
[2019-02-04] MEDS: THIAMINE HCL 100 MG TABLET (FP) PO SCH (22:17)
[2019-02-04] MEDS: MONTELUKAST NA 10 MG TABLET PO SCH (22:17)
[2019-02-05 01:45] LABS: PH,URINE 5.5 (5.0-8.0); URINE APPEARANCE CLEAR; URINE BILIRUBIN NEGATIVE (NEGATIVE); URINE COLOR YELLOW; URINE GLUCOSE (UA) NEGATIVE (NEGATIVE); URINE KETONE NEGATIVE (NEGATIVE); URINE LEUK ESTERASE NEGATIVE (NEGATIVE); URINE NITRITE NEGATIVE (NEGATIVE); URINE PROTEIN NEGATIVE (NEGATIVE)
[2019-02-05] MEDS: chlordiazePOXIDE HCL 25 MG CAPSULE PO PRN (01:55)
[2019-02-05] MEDS: chlordiazePOXIDE HCL 25 MG CAPSULE PO SCH ×2 (06:38→10:07)
[2019-02-05] MEDS ORDERED: METHADONE HCL 10 MG TABLET (FOR DETOX USE ONLY) PO ONE (10:00)
[2019-02-05] MEDS: BUDESONIDE/FORMETEROL FUMARATE 80/4.5 mcg INHALER IH SCH ×2 (10:07→22:02)
[2019-02-05] MEDS: PRENATAL VITAMINS W/ FOLIC ACID TABLET (FP) PO SCH (10:07)
--- NOTE | 2019-02-05 11:45 | PN ---
[facility] CIWA - CIWA Score Nausea/Vomitin-Mild Nausea/No Vomiting Muscle Tremors: 3 Anxiety: 2 Agitation: 2 Paroxysmal Sweats: 1-Minimal Palms Moist Orientation: 1-Uncertain about Date Tacttile Disturbances: 0-None Auditory Disturbances: 0-None Visual Disturbances: 0-None Headache: 1-Very Mild CIWA-Ar Total Score: 11 [facility] COWS - Scale Resting Pulse: 1= [place] 81-100 Sweatin= Chills/Flushing Restless Observation: 0= Sits Still Pupil Size: 0= Normal to Room Light Bone or Joint Aches: 1= Mild Discomfort Runny Nose/ Eye Tearin= Nasal Congestion GI Upset > 30mins: 1= Stomach Cramp Tremor Observation of Outstretched Hands: 2= Slight Tremor Visible Yawning Observation: 2= >3x During Session Anxiety or Irritability: 2=Irritable/Anxious Goose Flesh Skin: 0=Smooth Skin COWS Score: 11 [facility] Progress Note (SOAP) Subjective: body aches but sleep better last night feeling ok today social with peers in day room Objective: 02/05/19 11:45 Vital Signs Temperature 97.2 F L 02/05/19 09:12 Pulse Rate 82 02/05/19 09:12 Respiratory Rate 18 02/05/19 09:12 Blood Pressure 112/76 02/05/19 09:12 O2 Sat by Pulse Oximetry (%) Laboratory Last Values Urine Color Yellow 02/04/19 17:57 Urine Appearance Clear 02/04/19 17:57 Urine pH 5.5 (5.0-8.0) D 02/04/19 17:57 Ur Specific [place] 1.016 (1.010-1.035) 02/04/19 17:57 Urine Protein Negative (NEGATIVE) 02/04/19 17:57 Urine Glucose (UA) Negative (NEGATIVE) 02/04/19 17:57 Urine Ketones Negative (NEGATIVE) 02/04/19 17:57 Urine Blood Negative (NEGATIVE) 02/04/19 17:57 Urine Nitrite Negative (NEGATIVE) 02/04/19 17:57 Urine Bilirubin Negative (NEGATIVE) 02/04/19 17:57 Urine Urobilinogen 1.0 mg/dL (0.2-1.0) 02/04/19 17:57 Ur Leukocyte Esterase Negative (NEGATIVE) 02/04/19 17:57 02/05/19 11:46 see 11/2018 detox admission blood work Assessment: 02/05/19 11:46 alcohol and opiate withdrawal sx Plan: continue detox
[2019-02-05] MEDS ORDERED: chlordiazePOXIDE HCL 10 MG CAPSULE PO PRN (17:00)
[2019-02-05] MEDS ORDERED: ONDANSETRON *ODT* 4 MG TABLET SL PRN (17:14)
--- NOTE | 2019-02-05 17:18 | PN ---
[facility] Progress Note Note: Vital Signs Temperature 97.3 F L 02/05/19 14:02 Pulse Rate 99 H 02/05/19 14:02 Respiratory Rate 18 02/05/19 14:02 Blood Pressure 124/81 02/05/19 14:02 O2 Sat by Pulse Oximetry (%) Patient c/o nausea and vomiting zofran prn fluids as tolerated continue to monitor
[2019-02-05] MEDS: chlordiazePOXIDE HCL 10 MG CAPSULE PO SCH ×2 (17:20→22:02)
[2019-02-05] MEDS: IBUPROFEN 400 MG TABLET (FP) PO PRN (17:43)
[2019-02-05] MEDS: THIAMINE HCL 100 MG TABLET (FP) PO SCH (22:02)
[2019-02-05] MEDS: MONTELUKAST NA 10 MG TABLET PO SCH (22:02)
[2019-02-05] MEDS: MELATONIN 5 MG TABLETS PO PRN (22:02)
[2019-02-05] MEDS: QUEtiapine FUMARATE 25 MG TABLET (FP) PO SCH (22:04)
[2019-02-06] MEDS: chlordiazePOXIDE HCL 10 MG CAPSULE PO SCH ×3 (05:51→17:33)
[2019-02-06] MEDS ORDERED: METHADONE HCL 10 MG TABLET (FOR DETOX USE ONLY) ONE (08:49)
[2019-02-06] MEDS ORDERED: METHADONE HCL 5 MG TABLET (FOR DETOX USE ONLY) ONE (08:49)
[2019-02-06] MEDS ORDERED: METHADONE (DETOX) 10 MG, METHADONE (DETOX) 5 MG PO ONE (10:00)
[2019-02-06] MEDS ORDERED: METHADONE HCL 10 MG TABLET (FOR DETOX USE ONLY) PO ONE (10:00)
[2019-02-06] MEDS: BUDESONIDE/FORMETEROL FUMARATE 80/4.5 mcg INHALER IH SCH ×2 (10:03→22:20)
[2019-02-06] MEDS: PRENATAL VITAMINS W/ FOLIC ACID TABLET (FP) PO SCH (10:04)
[2019-02-06] MEDS: IBUPROFEN 400 MG TABLET (FP) PO PRN ×2 (10:38→17:34)
--- NOTE | 2019-02-06 13:39 | PN ---
S CIWA - CIWA Score Nausea/Vomitin-Mild Nausea/No Vomiting Muscle Tremors: 2 Anxiety: 1-Mildly Anxious Agitation: 1-Slight > Activity Paroxysmal Sweats: 1-Minimal Palms Moist Orientation: 0-Oriented Tacttile Disturbances: 0-None Auditory Disturbances: 0-None Visual Disturbances: 0-None Headache: 1-Very Mild CIWA-Ar Total Score: 7 [facility] COWS - Scale Resting Pulse: 1= [place] 81-100 Sweatin= Chills/Flushing Restless Observation: 0= Sits Still Pupil Size: 0= Normal to Room Light Bone or Joint Aches: 1= Mild Discomfort Runny Nose/ Eye Tearin= Nasal Congestion GI Upset > 30mins: 1= Stomach Cramp Tremor Observation of Outstretched Hands: 1= Tremor [place], Not Seen Yawning Observation: 0= None Anxiety or Irritability: 1=Feels Anxious/Irritable Goose Flesh Skin: 0=Smooth Skin COWS Score: 7 S Progress Note (SOAP) Subjective: feeling ok today social with peers in day room less body aches sleep better at night Objective: 02/06/19 13:39 Vital Signs Temperature 98.9 F 02/06/19 13:27 Pulse Rate 86 02/06/19 13:27 Respiratory Rate 18 02/06/19 13:27 Blood Pressure 116/74 02/06/19 13:27 O2 Sat by Pulse Oximetry (%) Laboratory Last Values Urine Color Yellow 02/04/19 17:57 Urine Appearance Clear 02/04/19 17:57 Urine pH 5.5 (5.0-8.0) D 02/04/19 17:57 Ur Specific [place] 1.016 (1.010-1.035) 02/04/19 17:57 Urine Protein Negative (NEGATIVE) 02/04/19 17:57 Urine Glucose (UA) Negative (NEGATIVE) 02/04/19 17:57 Urine Ketones Negative (NEGATIVE) 02/04/19 17:57 Urine Blood Negative (NEGATIVE) 02/04/19 17:57 Urine Nitrite Negative (NEGATIVE) 02/04/19 17:57 Urine Bilirubin Negative (NEGATIVE) 02/04/19 17:57 Urine Urobilinogen 1.0 mg/dL (0.2-1.0) 02/04/19 17:57 Ur Leukocyte Esterase Negative (NEGATIVE) 02/04/19 17:57 lab see 11/2018 Assessment: 02/06/19 13:40 alcohol and opiate withdrawal sx Plan: continue detox
[2019-02-06] MEDS: METHOCARBAMOL 500 MG TABLET PO PRN ×2 (15:19→22:23)
[2019-02-06] MEDS: THIAMINE HCL 100 MG TABLET (FP) PO SCH (22:20)
[2019-02-06] MEDS: MELATONIN 5 MG TABLETS PO PRN (22:21)
[2019-02-06] MEDS: MONTELUKAST NA 10 MG TABLET PO SCH (22:21)
[2019-02-06] MEDS: QUEtiapine FUMARATE 25 MG TABLET (FP) PO SCH (22:22)
[2019-02-07] MEDS: chlordiazePOXIDE HCL 10 MG CAPSULE PO SCH (05:42)
[2019-02-07] MEDS ORDERED: METHADONE HCL 5 MG TABLET (FOR DETOX USE ONLY) PO ONE (06:00)
[2019-02-07 09:09] VITALS: BP 119/63; PULSE 87; TEMP 97.7
[2019-02-07] MEDS ORDERED: METHADONE HCL 10 MG TABLET (FOR DETOX USE ONLY) PO ONE (10:00)
--- NOTE | 2019-02-07 14:35 | DS ---
[facility] Detox Discharge Summary Admission Date: 02/03/19 Discharge Date: 02/07/19 - History Present History: Alcohol Dependence, Opioid Dependence Additional Comments: 53 years old male admitted on 02/03/19 for alcohol and opiate withdrawal stabilization feeling better today alert no acute distress preferring to begin rehab today aftercare [facility] Pertinent Past History: bring in medication list and lab report to aftercare appointment - Physical Exam Results Vital Signs: Vital Signs Temperature 97.7 F 02/07/19 09:08 Pulse Rate 87 02/07/19 09:08 Respiratory Rate 18 02/07/19 09:08 Blood Pressure 119/63 02/07/19 09:08 O2 Sat by Pulse Oximetry (%) Pertinent Admission Physical Exam Findings: alcohol and opiate withdrawal sx Laboratory Last Values Urine Color Yellow 02/04/19 17:57 Urine Appearance Clear 02/04/19 17:57 Urine pH 5.5 (5.0-8.0) D 02/04/19 17:57 Ur Specific [place] 1.016 (1.010-1.035) 02/04/19 17:57 Urine Protein Negative (NEGATIVE) 02/04/19 17:57 Urine Glucose (UA) Negative (NEGATIVE) 02/04/19 17:57 Urine Ketones Negative (NEGATIVE) 02/04/19 17:57 Urine Blood Negative (NEGATIVE) 02/04/19 17:57 Urine Nitrite Negative (NEGATIVE) 02/04/19 17:57 Urine Bilirubin Negative (NEGATIVE) 02/04/19 17:57 Urine Urobilinogen 1.0 mg/dL (0.2-1.0) 02/04/19 17:57 Ur Leukocyte Esterase Negative (NEGATIVE) 02/04/19 17:57 lab noted see 11/2018 lab result - Treatment Hospital Course: Detox Protocol Followed, Detoxed Safely, Responded well, Discharged Condition Good, Rehab Referral Accepted Patient has Accepted a Rehab Referral to: [facility] - Medication Discharge Medications: Ambulatory Orders Albuterol Sulfate Inhaler - [Ventolin HFA Inhaler -] 2 inh PO Q4H PRN 02/04/19 Budesonide/Formeterol Fumarate [SYMBICORT 80/4.5mcg -] 2 inh PO BID 02/04/19 Montelukast Na [Singulair -] 10 mg PO HS 02/04/19 - Diagnosis (1) Alcohol dependence with uncomplicated withdrawal Status: Acute (2) Opioid dependence with withdrawal Status: Acute (3) Asthma Status: Chronic Qualifiers: Asthma severity: mild Asthma persistence: intermittent Asthma complication type: with status asthmaticus Qualified Code(s): J45.22 - Mild intermittent asthma with status asthmaticus (4) BPH (benign prostatic hyperplasia) Status: Chronic (5) GERD (gastroesophageal reflux disease) Status: Chronic Qualifiers: Esophagitis presence: without esophagitis Qualified Code(s): K21.9 - Gastro -esophageal reflux disease without esophagitis (6) HIV (human immunodeficiency virus infection) Status: Chronic Qualifiers: HIV symptom status: asymptomatic Qualified Code(s): Z21 - Asymptomatic human immunodeficiency virus [HIV] infection status (7) Hepatitis C Status: Chronic Qualifiers: Viral hepatitis chronicity: chronic Hepatic coma status: without hepatic coma Qualified Code(s): B18.2 - Chronic viral hepatitis C (8) Weight loss Status: Acute - AMA Did Patient Leave Against Medical Advice: No
[2019-02-08] MEDS ORDERED: METHADONE HCL 5 MG TABLET (FOR DETOX USE ONLY) PO ONE (06:00)
== END 2019-02-07 09:25 | disposition home or self-care (01) | DRG 773 ==
LOC: YASAS 08:25 → Y3N 10:14
PROVIDERS: ADMIT Surgery; ATTEND Surgery
PROC: HZ2ZZZZ Detoxification Services for Substance Abuse Treatment (ICD-10-PCS; principal; 2019-02-03)
DX: F10.230 Alcohol dependence with withdrawal, uncomplicated (principal); F11.23 Opioid dependence with withdrawal; F14.23 Cocaine dependence with withdrawal; F19.24 Other psychoactive substance dependence with psychoactive substance-induced mood disorder; F25.9 Schizoaffective disorder, unspecified; Z21 Asymptomatic human immunodeficiency virus [HIV] infection status; J45.22 Mild intermittent asthma with status asthmaticus; K21.9 Gastro-esophageal reflux disease without esophagitis; G47.00 Insomnia, unspecified; Z63.4 Disappearance and death of family member; Z68.1 Body mass index [BMI] 19.9 or less, adult; Z91.19 Patient's noncompliance with other medical treatment and regimen
CPT/HCPCS: 81003

== ENCOUNTER 2019-07-13 13:18 | Inpatient (IN) | payer OTHER ==
--- NOTE | 2019-07-13 16:39 | HP ---
COWS - Scale Resting Pulse: 0= NE 80 or Below Sweatin= Chills/Flushing Restless Observation: 1= Difficult to Sit Still Pupil Size: 1= Pupils >than Normal Bone or Joint Aches: 2= Severe Diffuse Aches Runny Nose/ Eye Tearin= Nasal Congestion GI Upset > 30mins: 2= Nausea/Diarrhea Tremor Observation: 2= Slight Tremor Visible Yawning Observation: 1= 1-2x During Session Anxiety or Irritability: 1=Feels Anxious/Irritable Goose Flesh Skin: 3=Piloerection COWS Score: 15 CIWA Score Nausea/Vomitin Muscle Tremors: 3 Anxiety: 2 Agitation: 2 Paroxysmal Sweats: 2 Orientation: 0-Oriented Tacttile Disturbances: 2-Mild Itch/Numbness/Burn Auditory Disturbances: 1-Very Mild Visual Disturbances: 1-Very Mild Sensitivity Headache: 2-Mild CIWA-Ar Total Score: 17 - Admission Criteria OASAS Guidelines: Admission for Medically Managed Detox: Requires at least one of the followin. CIWA greater than 12 2. Seizures within the past 24 hours 3. Delirium tremens within the past 24 hours 4. Hallucinations within the past 24 hours 5. Acute intervention needed for co occurring medical disorder 6. Acute intervention needed for co occurring psychiatric disorder 7. Severe withdrawal that cannot be handled at a lower level of care (continued vomiting, continued diarrhea, abnormal vital signs) requiring intravenous medication and/or fluids 8. Patient presents the following: CIWA greater than 12 Admission Criteria Met: Admission criteria met Admitting History and Physical - Past Medical History Pulmonary: Yes: Asthma Hepatobiliary: Yes: Hepatitis C (untreated) Infectious Disease: Yes: HIV, MRSA Psych: Yes: Addictions (heroin, cocaine, tobacco, EtOH, also uses MJ daily) - Past Surgical History Past Surgical History: Yes: None (denies) - Smoking History Smoking history: Current every day smoker Have you smoked in the past 12 months: Yes Aproximately how many cigarettes per day: 20 - Alcohol/Substance Use Hx Alcohol Use: Yes History of Substance Use: reports: Cocaine (daily), Heroin (daily), Marijuana ( daily) - Social History ADL: Independent Admission ROS S - HPI Chief Complaint: I'm here because I wanna quit, I wanna be a normal person. Allergies/Adverse Reactions: Allergies Allergy/AdvReac Type Severity Reaction Status Date / Time No Known Allergies Allergy Verified 07/13/19 15:21 History of Present Illness: 54 year old man with alcohol and illicit drug use presents for detox. His last treatment was in January of this year in this hospital, he has requested to go to rehab following this treatment. He was on methadone maintenance but reports he has not been compliant for the past 1 month, he however admits to using street methadone. He denies seizures or blackouts related to drinking/ drug use. Exam Limitations: No Limitations - Ebola screening Have you traveled outside of the country in the last 21 days: No (N) Have you had contact with anyone from an Ebola affected area: No Have you been sick,other than usual withdrawal symptoms: No Do you have a fever: No - Review of Systems Constitutional: Chills, Loss of Appetite, Changes in sleep EENT: reports: Blurred Vision, Nose Congestion Respiratory: reports: Cough Cardiac: reports: No Symptoms Reported GI: reports: Diarrhea, Nausea, Poor Appetite : reports: Frequency Musculoskeletal: reports: Back Pain, Joint Pain, Muscle Pain Integumentary: reports: No Symptoms Reported Neuro: reports: Headache, Numbness, Tremors Endocrine: reports: No Symptoms Reported Hematology: reports: No Symptoms Reported Psychiatric: reports: other (schizophrenia) Other Systems: Reviewed and Negative Patient History - Patient Medical History Hx Anemia: No Hx Asthma: Yes (not on meds) Hx Chronic Obstructive Pulmonary Disease (COPD): No Hx Cancer: No Hx Cardiac Disorders: No Hx Congestive Heart Failure: No Hx Hypertension: No Hx Hypercholesterolemia: No Hx Pacemaker: No HX Cerebrovascular Accident: No Hx Seizures: No Hx Dementia: No Hx Diabetes: No Hx Gastrointestinal Disorders: Yes (GERD) Hx Liver Disease: No Hx Genitourinary Disorders: Yes (BPH) Hx Sexually Transmitted Disorders: Yes (HIV+ HEP C) Hx Renal Disease (ESRD): No Hx Thyroid Disease: No Hx Human Immunodeficiency Virus (HIV): Yes (not on meds) Hx Hepatitis C: Yes (no treatment) Hx Depression: No Hx Suicide Attempt: No Hx Bipolar Disorder: No Hx Schizophrenia: Yes - Patient Surgical History Past Surgical History: Yes Other Surgical History: scrotal surgery Anesthesia Reaction: No - PPD History Previous Implant?: No Implanted On Prior [facility] Admission?: No Results: CXR(-)11/20/18 PPD to be Administered?: No - Smoking Cessation Smoking history: Current every day smoker Have you smoked in the past 12 months: Yes Aproximately how many cigarettes per day: 20 Cigars Per Day: 0 Hx Chewing Tobacco Use: No Initiated information on smoking cessation: Yes 'Breaking Loose' booklet given: 07/13/19 - Substances abused Alcohol Substance route: Oral Frequency: Daily Amount used: 6 cans of beer Age of first use: 12 Date of last use: 07/11/19 Heroin Substance route: Injection Frequency: Daily Amount used: 20 bags Age of first use: 12 Date of last use: 07/13/19 Cocaine Substance route: Injection Frequency: Daily Amount used: $200/10 $20 bags Age of first use: 12 Date of last use: 07/13/19 Admission Physical Exam [facility] - Vital Signs Vital Signs: Vital Signs - 24 hr 07/13/19 07/13/19 15:20 16:28 Temperature 96.6 F L 96.6 F L Pulse Rate 74 74 Respiratory 16 16 Rate Blood Pressure 114/80 114/80 - Physical General Appearance: Yes: No Apparent Distress HEENTM: Yes: EOMI, Hearing grossly Normal, Normocephalic, Normal Voice, HEATHER Respiratory: Yes: Chest Non-Tender, Lungs Clear, Normal Breath Sounds, No Respiratory Distress, No Accessory Muscle Use Neck: Yes: No masses,lesions,Nodules, Supple Breast: Yes: Breast Exam Deferred Cardiology: Yes: Regular Rhythm, Regular Rate, S1, S2 Abdominal: Yes: Normal Bowel Sounds, Non Tender, Soft Genitourinary: Yes: Frequency Back: Yes: Normal Inspection Musculoskeletal: Yes: full range of Motion, Gait Steady, Pelvis Stable Extremities: Yes: Normal Range of Motion, Non-Tender, Tremors Neurological: Yes: solaris administrator II-XII NML intact, Fully Oriented, Alert, Normal Mood/ Affect, Normal Response Integumentary: Yes: Normal Color, Clammy, Track Patel Lymphatic: Yes: Within Normal Limits - Diagnostic (1) Alcohol dependence with uncomplicated withdrawal Current Visit: Yes Status: Acute (2) Opioid dependence with withdrawal Current Visit: Yes Status: Acute (3) Sedative, hypnotic or anxiolytic dependence with withdrawal, uncomplicated Current Visit: Yes Status: Acute (4) Asthma Current Visit: No Status: Chronic Qualifiers: Asthma severity: mild Asthma persistence: intermittent Asthma complication type: uncomplicated Qualified Code(s): J45.20 - Mild intermittent asthma, uncomplicated (5) BPH (benign prostatic hyperplasia) Current Visit: Yes Status: Chronic (6) Cocaine dependence Current Visit: Yes Status: Chronic Qualifiers: Substance use status: in withdrawal Qualified Code(s): F14.23 - Cocaine dependence with withdrawal (7) GERD (gastroesophageal reflux disease) Current Visit: Yes Status: Chronic Qualifiers: Esophagitis presence: without esophagitis Qualified Code(s): K21.9 - Gastro -esophageal reflux disease without esophagitis (8) HIV (human immunodeficiency virus infection) Current Visit: Yes Status: Chronic Qualifiers: HIV symptom status: asymptomatic Qualified Code(s): Z21 - Asymptomatic human immunodeficiency virus [HIV] infection status Comment: last dose "months" ago (9) Hepatitis C Current Visit: Yes Status: Chronic Qualifiers: Viral hepatitis chronicity: chronic Hepatic coma status: without hepatic coma Qualified Code(s): B18.2 - Chronic viral hepatitis C (10) Nicotine dependence Current Visit: Yes Status: Acute Qualifiers: Nicotine product type: cigarettes Substance use status: uncomplicated Qualified Code(s): F17.210 - Nicotine dependence, cigarettes, uncomplicated Cleared for Admission [facility] - Detox or Rehab [facility] Level of Care: Medically Managed Detox Regimen/Protocol: Methadone/Librium Breathalyzer - Breathalyzer Breathalyzer: 0 Urine Drug Screen - Test Device Lot number: [id number] Expiration date: 03/08/21 - Control Is test valid?: Yes - Results Drug screen NEGATIVE: No Urine drug screen results: EMILIA-Cocaine, FEN-Fentanyl, MOP-Opiates, OXY-Oxycodone , MTD-Methadone, BZO-Benzodiazepines Inpatient Rehab Admission - Rehab Decision to Admit Inpatient rehab admission?: No
[2019-07-13] MEDS ORDERED: MAG HYDROX/AL HYDROX/SIMETH 30 ML UNIT-DOSE CUP PO PRN (16:49)
[2019-07-13] MEDS ORDERED: chlordiazePOXIDE HCL 25 MG CAPSULE PO ONE (16:49)
[2019-07-13] MEDS ORDERED: MAGNESIUM CITRATE 300 ML BOTTLE PO PRN (16:49)
[2019-07-13] MEDS ORDERED: BISMUTH SUBSALICYLATE 524 MG/30 ML UD PO PRN (16:49)
[2019-07-13] MEDS ORDERED: MAGNESIUM HYDROX 2400MG/30ML ORAL SUSPENSION 30 ML CUP PO PRN (16:49)
[2019-07-13] MEDS ORDERED: MELATONIN 5 MG TABLETS PO PRN (16:49)
[2019-07-13] MEDS ORDERED: NICOTINE POLACRILEX 2 MG GUM BUC PRN (16:49)
[2019-07-13] MEDS ORDERED: METHADONE HCL 10 MG TABLET (FOR DETOX USE ONLY) PO ONE (16:49)
[2019-07-13] MEDS ORDERED: MENTHOL/PHENOL 1 EACH UD MM PRN (16:49)
[2019-07-13] MEDS ORDERED: chlordiazePOXIDE HCL 10 MG CAPSULE PO PRN (16:49)
[2019-07-13] MEDS ORDERED: METHOCARBAMOL 500 MG TABLET PO PRN (16:49)
[2019-07-13] MEDS ORDERED: cloNIDine HCL 0.1 MG TABLET PO PRN (16:49)
[2019-07-13] MEDS ORDERED: ACETAMINOPHEN 325 MG TABLET (FP) PO PRN ×2 (16:49)
[2019-07-13] MEDS ORDERED: ALBUTEROL SO4 8 GM HFA INHALER IH PRN (16:53)
[2019-07-13] MEDS: NICOTINE 14 MG/24 HOURS TOPICAL PATCH TD SCH (17:50)
[2019-07-13] MEDS: MONTELUKAST NA 10 MG TABLET PO SCH (22:09)
[2019-07-13] MEDS: chlordiazePOXIDE HCL 25 MG CAPSULE PO SCH (22:09)
[2019-07-13] MEDS: THIAMINE HCL 100 MG TABLET (FP) PO SCH (22:09)
[2019-07-13] MEDS: BUDESONIDE/FORMETEROL FUMARATE 80/4.5 mcg INHALER IH SCH (22:09)
[2019-07-13] MEDS: IBUPROFEN 400 MG TABLET (FP) PO PRN (22:14)
[2019-07-14] MEDS: chlordiazePOXIDE HCL 25 MG CAPSULE PO SCH ×3 (06:28→22:01)
[2019-07-14] MEDS: IBUPROFEN 400 MG TABLET (FP) PO PRN (06:30)
[2019-07-14] MEDS ORDERED: PATIENT'S OWN MEDICATION (NON-FORMULARY) (Elviteg/Cob/Emtri/Tenof Alafen 1 EACH) PO SCH (10:00)
[2019-07-14] MEDS ORDERED: METHADONE HCL 5 MG TABLET (FOR DETOX USE ONLY) PO ONE (10:00)
[2019-07-14 10:47] LABS: ALBUMIN 3.2 g/dl (3.4-5.0); BILIRUBIN,TOTAL 0.7 mg/dL (0.2-1); BLOOD UREA NITROGEN 18.3 mg/dL (7-18); POTASSIUM 3.9 mmol/L (3.5-5.1); TOT PROT 6.8 g/dl (6.4-8.2)
[2019-07-14] MEDS: PRENATAL VITAMINS W/ FOLIC ACID TABLET (FP) PO SCH (10:47)
[2019-07-14] MEDS: TAMSULOSIN HCL 0.4 MG CAP PO SCH (10:48)
[2019-07-14] MEDS: BUDESONIDE/FORMETEROL FUMARATE 80/4.5 mcg INHALER IH SCH ×2 (10:48→22:01)
[2019-07-14] MEDS: NICOTINE 14 MG/24 HOURS TOPICAL PATCH TD SCH (10:48)
[2019-07-14 10:49] LABS: HEMATOCRIT 34.1 % (35.4-49); HEMOGLOBIN 11.4 GM/dL (11.7-16.9); MCH 27.4 pg (25.7-33.7); MCHC 33.6 g/dl (32.0-35.9); MEAN CELL VOLUME 81.7 fl (80-96); RBC 4.17 M/mm3 (4.00-5.60); RDW 15.6 % (11.9-15.9); WHITE BLOOD COUNT 2.2 K/mm3 (4.0-10.0)
[2019-07-14 11:11] LABS: MEAN PLT VOLUME 8.2 fl (7.5-11.1); PLATELET COUNT 94 K/MM3 (134-434)
--- NOTE | 2019-07-14 11:21 | EKG ---
Test Reason : Blood Pressure : / mmHG Vent. Rate : 066 BPM Atrial Rate : 066 BPM P-R Int : 102 ms QRS Dur : 088 ms QT Int : 402 ms P-R-T Axes : 005 064 051 degrees QTc Int : 421 ms SINUS RHYTHM WITH SHORT MT EARLY REPOLARIZATION WHEN COMPARED WITH ECG OF 14-MAY-2018 19:04, NO SIGNIFICANT CHANGE WAS FOUND Confirmed by IGNACIO MORRISON MD ([id number]) on 07/14/2019 11:21:03 AM Referred By: Confirmed By:IGNACIO MORRISON MD
--- NOTE | 2019-07-14 12:13 | PN ---
S CIWA - CIWA Score Nausea/Vomitin Muscle Tremors: 2 Anxiety: 4-Mod. Anxious/Guarded Agitation: 4-Moderately Restless Paroxysmal Sweats: 3 Orientation: 0-Oriented Tacttile Disturbances: 0-None Auditory Disturbances: 0-None Visual Disturbances: 0-None Headache: 0-None Present CIWA-Ar Total Score: 15 BHS COWS - Scale Resting Pulse: 0= [place] 80 or Below Sweatin=Flushed/Facial Moisture Restless Observation: 3= Extraneous Movement Pupil Size: 0= Normal to Room Light Bone or Joint Aches: 1= Mild Discomfort Runny Nose/ Eye Tearin= Runny Nose/Eyes GI Upset > 30mins: 0= None Tremor Observation of Outstretched Hands: 2= Slight Tremor Visible Yawning Observation: 1= 1-2x During Session Anxiety or Irritability: 2=Irritable/Anxious Goose Flesh Skin: 0=Smooth Skin COWS Score: 13 S Progress Note (SOAP) Subjective: shakes sweats anxious Objective: 07/14/19 12:08 A & O x 3 Ambulatory Laboratory Last Values WBC 2.2 K/mm3 (4.0-10.0) L 07/14/19 07:30 RBC 4.17 M/mm3 (4.00-5.60) 07/14/19 07:30 Hgb 11.4 GM/dL (11.7-16.9) L 07/14/19 07:30 Hct 34.1 % (35.4-49) L 07/14/19 07:30 MCV 81.7 fl (80-96) 07/14/19 07:30 MCH 27.4 pg (25.7-33.7) 07/14/19 07:30 MCHC 33.6 g/dl (32.0-35.9) 07/14/19 07:30 RDW 15.6 % (11.9-15.9) 07/14/19 07:30 Plt Count 94 K/MM3 (134-434) L D 07/14/19 07:30 MPV 8.2 fl (7.5-11.1) 07/14/19 07:30 Sodium 139 mmol/L (136-145) 07/14/19 07:30 Potassium 3.9 mmol/L (3.5-5.1) 07/14/19 07:30 Chloride 105 mmol/L (98-107) 07/14/19 07:30 Carbon Dioxide 28 mmol/L (21-32) 07/14/19 07:30 Anion Gap 6 MMOL/L (8-16) L 07/14/19 07:30 BUN 18.3 mg/dL (7-18) H 07/14/19 07:30 Creatinine 1.0 mg/dL (0.55-1.3) 07/14/19 07:30 Est GFR (CKD-EPI)AfAm 98. 46 07/14/19 07:30 Est GFR (CKD-EPI)NonAf 84.95 07/14/19 07:30 Random Glucose 115 mg/dL (74-106) H 07/14/19 07:30 Calcium 9.0 mg/dL (8.5-10.1) 07/14/19 07:30 Total Bilirubin 0.7 mg/dL (0.2-1) 07/14/19 07:30 AST 29 U/L (15-37) 07/14/19 07:30 ALT 23 U/L (13-61) 07/14/19 07:30 Alkaline Phosphatase 84 U/L (45-117) 07/14/19 07:30 Total Protein 6.8 g/dl (6.4-8.2) 07/14/19 07:30 Albumin 3.2 g/dl (3.4-5.0) L 07/14/19 07:30 RPR Titer Nonreactive (NONREACTIVE) 07/14/19 07:30 abnormal lab results noted Vital Signs Temperature 97.3 F L 07/14/19 09:12 Pulse Rate 69 07/14/19 09:12 Respiratory Rate 16 07/14/19 09:12 Blood Pressure 136/72 07/14/19 09:12 O2 Sat by Pulse Oximetry (%) Assessment: 07/14/19 12:13 withdrawal sx pancytopenia; hx of HIV,MRSA 07/14/19 12:14 Plan: continue detox increase hydration bleeding/injury/fall precautions
[2019-07-14] MEDS: AMMONIUM LACTATE 12% LOTION 225 GM BOTTLE TP SCH (13:30)
[2019-07-14] MEDS: GABAPENTIN 400 MG CAPSULE (FP) PO SCH ×2 (13:32→22:00)
[2019-07-14] MEDS ORDERED: GABAPENTIN 400 MG CAPSULE (FP) PO SCH (14:00)
[2019-07-14] MEDS: THIAMINE HCL 100 MG TABLET (FP) PO SCH (22:00)
[2019-07-14] MEDS: MONTELUKAST NA 10 MG TABLET PO SCH (22:51)
[2019-07-15] MEDS: GABAPENTIN 400 MG CAPSULE (FP) PO SCH ×2 (06:47→13:32)
[2019-07-15] MEDS: chlordiazePOXIDE 5 MG CAPSULE PO SCH ×2 (06:47→13:31)
[2019-07-15] MEDS ORDERED: METHADONE HCL 10 MG TABLET (FOR DETOX USE ONLY) PO ONE (10:00)
[2019-07-15] MEDS: PRENATAL VITAMINS W/ FOLIC ACID TABLET (FP) PO SCH (10:26)
[2019-07-15] MEDS: AMMONIUM LACTATE 12% LOTION 225 GM BOTTLE TP SCH (10:27)
[2019-07-15] MEDS: TAMSULOSIN HCL 0.4 MG CAP PO SCH (10:28)
[2019-07-15] MEDS: NICOTINE 14 MG/24 HOURS TOPICAL PATCH TD SCH (10:29)
[2019-07-15] MEDS: BUDESONIDE/FORMETEROL FUMARATE 80/4.5 mcg INHALER IH SCH (10:30)
--- NOTE | 2019-07-15 10:34 | CONSULT ---
[facility] Psychiatric Consult - Data Date of interview: 07/15/19 Admission source: Self-referred Identifying data: Mr Steinberg is a 54 years old , unemployed receiving [employer] assistance, homeless seeking detox treatment for alcohol, opioid and cocaine Substance Abuse History: Reports history of alcohol, heroin and cocaine use. Refer to addiction counselor's summary for further information Medical History: Sinificant for HIV infection since age 32, bronchial asthma, hepatis C, chronic low back pain, benign prostatic hyperplasia (BPH), GERD, history of MERSA (methicillin-resistant staphylococcus aureus) and scotal surgery. Smokes cigarettes 1 ppd Psychiatric History: Patient is marginally cooperative with the interview. He is somewhat irritable. He was seen by Dr Upton on 02/04/19 during a recent admission to this facility. He reported that his first psychiatric contact occurred three decades ago when he learnt of his seropositivity for HIV. He was admitted to a psychiatric institution in [place]. He endorsed a history of multiple psychiatric hospitalizations + numerous CPEP visits. Patient is known to [facility] and [facility]. He used to see Dr Harper at the [facility] clinic in the [place] and he was prescribed Abilify, Xanax and Elavil. Reportedly he dropped out of psychiatric OPD care with no contact with psychiatric care providers for months. Patient denies history of suicide attempts. At present, patient is irritable and marginally cooperative Physical/Sexual Abuse/Trauma History: Reportedly denied Mental Status Exam - Mental Status Exam Alert and Oriented to: Time, Place, Person Cognitive Function: Fair Patient Appearance: Disheveled Mood: Depressed, Irritable Affect: Appropriate Patient Behavior: Cooperative (marginally cooperative) Speech Pattern: Clear Voice Loudness: Normal Thought Process: Intact, Goal Oriented Thought Disorder: Not Present Suicidal Ideation: Denies Homicidal Ideation: Denies Insight/Judgement: Poor Sleep: Poorly Appetite: Good Muscle strength/Tone: Normal Gait/Station: Normal Psychiatric Findings - Problem List ([place] 1, 2,3) (1) Schizoaffective disorder Current Visit: No Status: Chronic Comment: As per history. (2) Substance induced mood disorder Current Visit: Yes Status: Acute (3) Substance-induced sleep disorder Current Visit: Yes Status: Acute (4) Alcohol dependence with uncomplicated withdrawal Current Visit: Yes Status: Acute (5) Opioid dependence with withdrawal Current Visit: Yes Status: Acute (6) Cocaine dependence Current Visit: Yes Status: Acute Qualifiers: Substance use status: in withdrawal Qualified Code(s): F14.23 - Cocaine dependence with withdrawal (7) Nicotine dependence Current Visit: Yes Status: Chronic Qualifiers: Nicotine product type: cigarettes Substance use status: uncomplicated Qualified Code(s): F17.210 - Nicotine dependence, cigarettes, uncomplicated (8) BPH (benign prostatic hyperplasia) Current Visit: Yes Status: Chronic (9) GERD (gastroesophageal reflux disease) Current Visit: Yes Status: Chronic Qualifiers: Esophagitis presence: without esophagitis Qualified Code(s): K21.9 - Gastro -esophageal reflux disease without esophagitis (10) HIV (human immunodeficiency virus infection) Current Visit: Yes Status: Chronic Qualifiers: HIV symptom status: asymptomatic Qualified Code(s): Z21 - Asymptomatic human immunodeficiency virus [HIV] infection status Comment: last dose "months" ago (11) Hepatitis C Current Visit: Yes Status: Chronic Qualifiers: Viral hepatitis chronicity: chronic Hepatic coma status: without hepatic coma Qualified Code(s): B18.2 - Chronic viral hepatitis C (12) MRSA (methicillin resistant Staphylococcus aureus) infection Current Visit: No Status: Acute (13) Asthma Current Visit: No Status: Chronic Qualifiers: Asthma severity: mild Asthma persistence: intermittent Asthma complication type: uncomplicated Qualified Code(s): J45.20 - Mild intermittent asthma, uncomplicated - Initial Treatment Plan Initial Treatment Plan: 1) Start Seroquel 50 mg po HS. 2) Continue inpatient detoxification
--- NOTE | 2019-07-15 15:20 | PN ---
[facility] CIWA - CIWA Score Nausea/Vomitin-No Nausea/No Vomiting Muscle Tremors: 2 Anxiety: 4-Mod. Anxious/Guarded Agitation: 3 Paroxysmal Sweats: 3 Orientation: 0-Oriented Tacttile Disturbances: 1-Very Mild Itch/Numbness Auditory Disturbances: 0-None Visual Disturbances: 0-None Headache: 0-None Present CIWA-Ar Total Score: 13 S COWS - Scale Resting Pulse: 1= [place] 81-100 Sweatin= Chills/Flushing Restless Observation: 1= Difficult to Sit Still Pupil Size: 0= Normal to Room Light Bone or Joint Aches: 0= None Runny Nose/ Eye Tearin= None GI Upset > 30mins: 0= None Tremor Observation of Outstretched Hands: 2= Slight Tremor Visible Yawning Observation: 1= 1-2x During Session Anxiety or Irritability: 4=Extreme Anxiety Goose Flesh Skin: 0=Smooth Skin COWS Score: 10 S Progress Note (SOAP) Subjective: Tremors, Sweating, Anxious, Restless. Objective: PATIENT A & O X 3, OBSERVED AMBULATING ON DETOX UNIT UNASSISTED. IN NO ACUTE DISTRESS. 07/15/19 15:18 Vital Signs Temperature 98.2 F 07/15/19 13:07 Pulse Rate 84 07/15/19 13:07 Respiratory Rate 18 07/15/19 13:07 Blood Pressure 132/73 07/15/19 13:07 O2 Sat by Pulse Oximetry (%) Laboratory Tests 07/14/19 07/14/19 07/14/19 07:30 07:30 07:30 WBC 2.2 L RBC 4.17 Hgb 11.4 L Hct 34.1 L MCV 81.7 MCH 27.4 MCHC 33.6 RDW 15.6 Plt Count 94 L D MPV 8.2 Sodium 139 Potassium 3.9 Chloride 105 Carbon Dioxide 28 Anion Gap 6 L BUN 18.3 H Creatinine 1.0 Est GFR (CKD-EPI)AfAm 98.46 Est GFR (CKD-EPI)NonAf 84.95 Random Glucose 115 H Calcium 9.0 Total Bilirubin 0.7 AST 29 ALT 23 Alkaline Phosphatase 84 Total Protein 6.8 Albumin 3.2 L RPR Titer Nonreactive LABS NOTED. PATIENT HAS BEEN ANEMIC AND HAS HAD LOW WBC AND PLATELET LEVELS ON PREVIOUS ADMISSIONS. 07/15/19 15:19 Assessment: 10/07/19 15:19 WITHDRAWAL SYMPTOMS. PANCYTOPENIA. Plan: CONTINUE DETOX. INCREASE DAILY PO WATER INTAKE.
[2019-07-15 16:45] VITALS: BP 121/78; PULSE 86; TEMP 98.7
--- NOTE | 2019-07-15 17:37 | DS ---
[facility] Detox Discharge Summary Admission Date: 07/13/19 Discharge Date: 07/15/19 - History Present History: Alcohol Dependence, Opioid Dependence Additional Comments: Pt admitted two days ago for detox from alcohol and opioids. Pt wants to leave. States he does not need any medications. - Physical Exam Results Vital Signs: Vital Signs Temperature 98.7 F 07/15/19 16:44 Pulse Rate 86 07/15/19 16:44 Respiratory Rate 18 07/15/19 16:44 Blood Pressure 121/78 07/15/19 16:44 O2 Sat by Pulse Oximetry (%) - Treatment Hospital Course: Detox Protocol Followed - Medication Discharge Medications: Ambulatory Orders Albuterol Sulfate Inhaler - [Ventolin HFA Inhaler -] 2 inh PO Q4H PRN 02/04/19 Budesonide/Formeterol Fumarate [SYMBICORT 80/4.5mcg -] 2 inh PO BID 02/04/19 Montelukast Na [Singulair -] 10 mg PO HS 02/04/19 Elviteg/Cob/Emtri/Tenof Alafen [Genvoya (Non-Formulary)] 1 each PO DAILY Esomeprazole Magnesium [Nexium 24Hr] 20 mg PO DAILY 07/13/19 Gabapentin 400 mg PO TID 07/13/19 Tamsulosin HCl [Flomax] 0.4 mg PO DAILY 07/13/19 - AMA Did Patient Leave Against Medical Advice: No
[2019-07-16] MEDS ORDERED: chlordiazePOXIDE HCL 10 MG CAPSULE PO PRN
[2019-07-16] MEDS ORDERED: chlordiazePOXIDE HCL 10 MG CAPSULE PO SCH (05:00)
[2019-07-16] MEDS ORDERED: METHADONE HCL 5 MG TABLET (FOR DETOX USE ONLY) PO ONE (06:00)
[2019-07-17] MEDS ORDERED: chlordiazePOXIDE HCL 10 MG CAPSULE PO ONE (05:00)
== END 2019-07-15 17:43 | disposition home or self-care (01) | DRG 773 ==
LOC: YASAS 13:18 → Y6N 16:46
PROVIDERS: ADMIT Allergy & Immunology; ATTEND Allergy & Immunology
PROC: HZ2ZZZZ Detoxification Services for Substance Abuse Treatment (ICD-10-PCS; principal; 2019-07-13)
DX: F11.23 Opioid dependence with withdrawal (principal); F10.230 Alcohol dependence with withdrawal, uncomplicated; F14.20 Cocaine dependence, uncomplicated; F17.210 Nicotine dependence, cigarettes, uncomplicated; F25.9 Schizoaffective disorder, unspecified; F19.24 Other psychoactive substance dependence with psychoactive substance-induced mood disorder; F19.282 Other psychoactive substance dependence with psychoactive substance-induced sleep disorder; D61.818 Other pancytopenia; Z21 Asymptomatic human immunodeficiency virus [HIV] infection status; J45.20 Mild intermittent asthma, uncomplicated; M54.5 Low back pain; G89.29 Other chronic pain; N40.0 Benign prostatic hyperplasia without lower urinary tract symptoms; K21.9 Gastro-esophageal reflux disease without esophagitis; Z86.14 Personal history of Methicillin resistant Staphylococcus aureus infection; Z86.19 Personal history of other infectious and parasitic diseases
CPT/HCPCS: 36415; 80053; 85027; 86593; 93005; 93010

== ENCOUNTER 2022-10-27 17:52 | Inpatient (IN) | payer OTHER ==
[2022-10-27 18:30] VITALS: BMI 18.2
[2022-10-27] MEDS ORDERED: ALBUTEROL SO4 HFA INHALER IH PRN (19:23)
[2022-10-27] MEDS ORDERED: DICYCLOMINE HCL 10 MG CAPSULE PO PRN (19:24)
[2022-10-27] MEDS ORDERED: LOPERAMIDE HCL 2 MG CAPSULE PO PRN (19:24)
[2022-10-27] MEDS ORDERED: POLYETHYLENE GLYCOL (HEALTHYLAX) 3350 17 GM PACKET PO PRN (19:24)
[2022-10-27] MEDS ORDERED: BISMUTH SUBSALICYLATE 524 MG/30 ML PO PRN (19:24)
[2022-10-27] MEDS ORDERED: IBUPROFEN 400 MG TABLET (FP) PO PRN (19:24)
[2022-10-27] MEDS ORDERED: ACETAMINOPHEN 325 MG TABLET (FP) PO PRN ×2 (19:24)
[2022-10-27] MEDS ORDERED: BENZOCAINE/MENTHOL (CHLORASEPTIC ) LOZENGE MM PRN (19:24)
[2022-10-27] MEDS ORDERED: METHOCARBAMOL 500 MG TABLET PO PRN (19:24)
[2022-10-27] MEDS ORDERED: MAGNESIUM HYDROX 2400MG/30ML ORAL SUSPENSION 30 ML CUP PO PRN (19:24)
[2022-10-27] MEDS ORDERED: IBUPROFEN 600 MG TABLET (FP) PO PRN (19:24)
[2022-10-27] MEDS ORDERED: NALOXONE HCL (KLOXXADO) 8 MG SPRAY NS PRN (19:24)
[2022-10-27] MEDS: NICOTINE 21 MG/24 HOURS TOPICAL PATCH TD SCH (23:20)
[2022-10-27] MEDS: BUDESONIDE/FORMETEROL FUMARATE 80/4.5 mcg INHALER IH SCH (23:23)
[2022-10-27] MEDS: GABAPENTIN 400 MG CAPSULE PO SCH (23:27)
[2022-10-27] MEDS: MONTELUKAST NA 10 MG TABLET PO SCH (23:27)
[2022-10-27] MEDS: TAMSULOSIN HCL 0.4 MG CAP PO SCH (23:27)
[2022-10-27] MEDS: THIAMINE HCL 100 MG TABLET (FP) PO SCH (23:28)
[2022-10-27] MEDS: MELATONIN 5 MG TABLETS PO SCH (23:28)
[2022-10-28] MEDS: GABAPENTIN 400 MG CAPSULE PO SCH ×3 (08:29→22:04)
[2022-10-28] MEDS: ELVITEG/COB/EMTRI/TENOF (GENVOYA) TABLET (NF) PO SCH (08:31)
[2022-10-28] MEDS ORDERED: methaDONE HCL 10 MG TABLET PO SCH (11:15)
[2022-10-28] MEDS: PANTOPRAZOLE 20 MG TABLET PO SCH (11:26)
[2022-10-28] MEDS: BUDESONIDE/FORMETEROL FUMARATE 80/4.5 mcg INHALER IH SCH ×2 (11:26→22:05)
[2022-10-28] MEDS: TAMSULOSIN HCL 0.4 MG CAP PO SCH (11:26)
[2022-10-28] MEDS: NICOTINE 21 MG/24 HOURS TOPICAL PATCH TD SCH (11:26)
[2022-10-28] MEDS: MELATONIN 5 MG TABLETS PO SCH (22:04)
[2022-10-28] MEDS: THIAMINE HCL 100 MG TABLET (FP) PO SCH (22:05)
[2022-10-28] MEDS: MONTELUKAST NA 10 MG TABLET PO SCH (22:05)
[2022-10-29] MEDS: GABAPENTIN 400 MG CAPSULE PO SCH ×3 (06:17→21:36)
[2022-10-29] MEDS: ELVITEG/COB/EMTRI/TENOF (GENVOYA) TABLET (NF) PO SCH (07:13)
[2022-10-29] MEDS: BUDESONIDE/FORMETEROL FUMARATE 80/4.5 mcg INHALER IH SCH ×2 (09:50→21:36)
[2022-10-29] MEDS: TAMSULOSIN HCL 0.4 MG CAP PO SCH (09:50)
[2022-10-29] MEDS: PANTOPRAZOLE 20 MG TABLET PO SCH (09:50)
[2022-10-29] MEDS: NICOTINE 21 MG/24 HOURS TOPICAL PATCH TD SCH (09:50)
[2022-10-29] MEDS: THIAMINE HCL 100 MG TABLET (FP) PO SCH (21:36)
[2022-10-29] MEDS: MONTELUKAST NA 10 MG TABLET PO SCH (21:36)
[2022-10-29] MEDS: MELATONIN 5 MG TABLETS PO SCH (21:36)
[2022-10-30] MEDS: GABAPENTIN 400 MG CAPSULE PO SCH ×3 (06:06→21:16)
[2022-10-30] MEDS: ELVITEG/COB/EMTRI/TENOF (GENVOYA) TABLET (NF) PO SCH (07:27)
[2022-10-30] MEDS: PANTOPRAZOLE 20 MG TABLET PO SCH (09:14)
[2022-10-30] MEDS: NICOTINE 21 MG/24 HOURS TOPICAL PATCH TD SCH (09:14)
[2022-10-30] MEDS: TAMSULOSIN HCL 0.4 MG CAP PO SCH (09:14)
[2022-10-30] MEDS: BUDESONIDE/FORMETEROL FUMARATE 80/4.5 mcg INHALER IH SCH ×2 (09:14→21:16)
[2022-10-30] MEDS: MELATONIN 5 MG TABLETS PO SCH (21:16)
[2022-10-30] MEDS: THIAMINE HCL 100 MG TABLET (FP) PO SCH (21:16)
[2022-10-30] MEDS: MONTELUKAST NA 10 MG TABLET PO SCH (21:16)
[2022-10-31] MEDS: GABAPENTIN 400 MG CAPSULE PO SCH ×3 (06:23→21:31)
[2022-10-31] MEDS: ELVITEG/COB/EMTRI/TENOF (GENVOYA) TABLET (NF) PO SCH (08:45)
[2022-10-31] MEDS ORDERED: NICOTINE 10 MG CARTRIDGE (INHALER) IH PRN (09:26)
[2022-10-31] MEDS ORDERED: NICOTINE 21 MG/24 HOURS TOPICAL PATCH TD PRN (09:26)
[2022-10-31] MEDS: BUDESONIDE/FORMETEROL FUMARATE 80/4.5 mcg INHALER IH SCH ×2 (10:00→21:32)
[2022-10-31] MEDS: PANTOPRAZOLE 20 MG TABLET PO SCH (10:00)
[2022-10-31] MEDS: TAMSULOSIN HCL 0.4 MG CAP PO SCH (10:00)
[2022-10-31] MEDS ORDERED: MINERAL OIL/PETROLAT/WATER TOPICAL CREAM 113 GM JAR TP PRN (14:24)
[2022-10-31] MEDS ORDERED: COLLOIDAL OATMEAL 1 BAR EACH TP PRN (14:26)
[2022-10-31 15:54] LABS: ALBUMIN 3.6 g/dl (3.4-5.0); CALCIUM 9.2 mg/dL (8.5-10.1)
[2022-10-31 15:55] LABS: BLOOD UREA NITROGEN 26.3 mg/dL (7-18)
[2022-10-31 15:59] LABS: BILIRUBIN,TOTAL 0.6 mg/dL (0.2-1); TOT PROT 7.4 g/dl (6.4-8.2)
[2022-10-31 16:09] LABS: HEMATOCRIT 37.9 % (35.4-49); HEMOGLOBIN 12.3 GM/dL (11.7-16.9); MCH 26.4 pg (25.7-33.7); MCHC 32.3 g/dl (32.0-35.9); MEAN CELL VOLUME 81.7 fl (80-96); PLATELET COUNT 111 10^3/uL (134-434); RBC 4.64 M/mm3 (4.00-5.60); RDW 14.7 % (11.9-15.9); WHITE BLOOD COUNT 2.6 K/mm3 (4.0-10.0)
[2022-10-31] MEDS: MELATONIN 5 MG TABLETS PO SCH (21:30)
[2022-10-31] MEDS: MONTELUKAST NA 10 MG TABLET PO SCH (21:31)
[2022-10-31] MEDS: THIAMINE HCL 100 MG TABLET (FP) PO SCH (21:32)
[2022-10-31] MEDS ORDERED: INSULIN (NOVOLOG) ASPART 100 UNITS/ML 10ML VIAL ONE (23:30)
[2022-11-01] MEDS: GABAPENTIN 400 MG CAPSULE PO SCH ×3 (06:09→21:58)
[2022-11-01] MEDS: TAMSULOSIN HCL 0.4 MG CAP PO SCH (10:01)
[2022-11-01] MEDS: BUDESONIDE/FORMETEROL FUMARATE 80/4.5 mcg INHALER IH SCH ×2 (10:01→21:57)
[2022-11-01] MEDS: PANTOPRAZOLE 20 MG TABLET PO SCH (10:01)
[2022-11-01] MEDS: THIAMINE HCL 100 MG TABLET (FP) PO SCH (21:58)
[2022-11-01] MEDS: MELATONIN 5 MG TABLETS PO SCH (21:59)
[2022-11-01] MEDS: MONTELUKAST NA 10 MG TABLET PO SCH (21:59)
[2022-11-02] MEDS: GABAPENTIN 400 MG CAPSULE PO SCH ×3 (06:05→21:40)
[2022-11-02] MEDS: MAG HYDROX/AL HYDROX/SIMETH 30 ML UNIT-DOSE CUP PO PRN (07:54)
[2022-11-02] MEDS: TAMSULOSIN HCL 0.4 MG CAP PO SCH (10:01)
[2022-11-02] MEDS: BUDESONIDE/FORMETEROL FUMARATE 80/4.5 mcg INHALER IH SCH ×2 (10:01→21:40)
[2022-11-02] MEDS: PANTOPRAZOLE 20 MG TABLET PO SCH (10:01)
[2022-11-02] MEDS: ONDANSETRON *ODT* 4 MG TABLET SL PRN ×2 (14:57→21:39)
[2022-11-02] MEDS: MELATONIN 5 MG TABLETS PO SCH (21:38)
[2022-11-02] MEDS: MONTELUKAST NA 10 MG TABLET PO SCH (21:40)
[2022-11-02] MEDS: THIAMINE HCL 100 MG TABLET (FP) PO SCH (21:40)
[2022-11-03] MEDS: MAG HYDROX/AL HYDROX/SIMETH 30 ML UNIT-DOSE CUP PO PRN (01:28)
[2022-11-03] MEDS: GABAPENTIN 400 MG CAPSULE PO SCH ×3 (07:48→23:50)
[2022-11-03] MEDS ORDERED: TRIMETHOBENZAMIDE HCL 200MG/2ML INJ IM ONE (10:13)
[2022-11-03] MEDS: TAMSULOSIN HCL 0.4 MG CAP PO SCH (11:15)
[2022-11-03] MEDS: BUDESONIDE/FORMETEROL FUMARATE 80/4.5 mcg INHALER IH SCH ×2 (11:16→23:51)
[2022-11-03] MEDS: PANTOPRAZOLE 20 MG TABLET PO SCH (11:16)
[2022-11-03 11:31] LABS: BLOOD UREA NITROGEN 22.8 mg/dL (7-18); CALCIUM 9.2 mg/dL (8.5-10.1)
[2022-11-03 11:35] LABS: CREATININE 0.8 mg/dL (0.55-1.3)
[2022-11-03 17:37] LABS: BASO % 0.4 % (0-2.0); EOS % 0.6 % (0-4.5); HEMATOCRIT 34.7 % (35.4-49); HEMOGLOBIN 11.3 GM/dL (11.7-16.9); LYMPH % 12.6 % (8-40); MCH 26.8 pg (25.7-33.7); MCHC 32.7 g/dl (32.0-35.9); MEAN CELL VOLUME 82.1 fl (80-96); MEAN PLT VOLUME 8.4 fl (7.5-11.1); MONO % 11.7 % (3.8-10.2); NEUT % 74.7 % (42.8-82.8); PLATELET COUNT 103 10^3/uL (134-434); RBC 4.23 M/mm3 (4.00-5.60); WHITE BLOOD COUNT 2.9 K/mm3 (4.0-10.0)
[2022-11-03 17:51] LABS: ALBUMIN 3.5 g/dl (3.4-5.0); BLOOD UREA NITROGEN 21.1 mg/dL (7-18); CREATININE 0.7 mg/dL (0.55-1.3)
[2022-11-03 17:53] LABS: BILIRUBIN,TOTAL 0.7 mg/dL (0.2-1); TOT PROT 7.2 g/dl (6.4-8.2)
[2022-11-03 18:49] VITALS: BP 139/91; PULSE 72; RESP 18; TEMP 97.1
[2022-11-03] MEDS: MELATONIN 5 MG TABLETS PO SCH (23:50)
[2022-11-03] MEDS: MONTELUKAST NA 10 MG TABLET PO SCH (23:51)
[2022-11-03] MEDS: THIAMINE HCL 100 MG TABLET (FP) PO SCH (23:51)
[2022-11-04] MEDS: GABAPENTIN 400 MG CAPSULE PO SCH (07:22)
== END 2022-11-04 10:34 | disposition short-term general hospital (02) | DRG 772 ==
LOC: YASAS 17:52 → Y3E 22:14
PROVIDERS: ADMIT Allergy & Immunology; ATTEND Psychiatry & Neurology Pain Medicine
PROC: HZ42ZZZ Group Counseling for Substance Abuse Treatment, Cognitive-Behavioral (ICD-10-PCS; principal; 2022-10-27)
DX: F11.20 Opioid dependence, uncomplicated (principal); F14.20 Cocaine dependence, uncomplicated; F10.20 Alcohol dependence, uncomplicated; F13.20 Sedative, hypnotic or anxiolytic dependence, uncomplicated; F17.210 Nicotine dependence, cigarettes, uncomplicated; B20 Human immunodeficiency virus [HIV] disease; B18.2 Chronic viral hepatitis C; R10.84 Generalized abdominal pain; R11.2 Nausea with vomiting, unspecified; R63.4 Abnormal weight loss; Z68.1 Body mass index [BMI] 19.9 or less, adult; Z28.9 Immunization not carried out for unspecified reason; Z28.310 Unvaccinated for COVID-19
CPT/HCPCS: 36415; 71045-TC-FY; 80048; 80053; 85025; 85027; 86780; 93005; 93010; C9803-CS; Q0162; U0003; U0005

== ENCOUNTER 2022-11-03 21:14 | Observation (INO) | payer OTHER ==
[2022-11-03 21:25] VITALS: BMI 18.2
[2022-11-03] MEDS ORDERED: MAG HYDROX/AL HYDROX/SIMETH 30 ML UNIT-DOSE CUP PO ONE (22:14)
[2022-11-03] MEDS ORDERED: SODIUM CHLORIDE 0.9% 500 ML INFUS.BAG IV ONE (22:14)
[2022-11-03] MEDS ORDERED: FAMOTIDINE 20 MG/50 ML IVPB 20 MG/50 ML MG IVPB ONE (22:14)
[2022-11-03] MEDS ORDERED: SUCRALFATE 1 GM TABLET (FP) PO ONE (22:15)
[2022-11-03] MEDS ORDERED: SUCRALFATE 1 GM TABLET (FP) ONE (23:20)
[2022-11-03] MEDS ORDERED: MAG HYDROX/AL HYDROX/SIMETH 30 ML UNIT-DOSE CUP ONE (23:21)
[2022-11-03] MEDS ORDERED: ONDANSETRON 4 MG/2 ML VIAL IVPB ONE (23:55)
[2022-11-04] MEDS ORDERED: ONDANSETRON 4 MG/2 ML VIAL ONE ×3 (00:01→12:22)
[2022-11-04] MEDS ORDERED: FAMOTIDINE 20 MG/50 ML IVPB 20 MG/50 ML MG IVPB ONE (00:01)
[2022-11-04 00:34] LABS: MAGNESIUM 2.4 mg/dL (1.8-2.4)
[2022-11-04] MEDS ORDERED: ONDANSETRON 4 MG/2 ML VIAL IVPB ONE (02:00)
[2022-11-04] MEDS ORDERED: PANTOPRAZOLE SODIUM 40 MG VIAL IVPUSH ONE (03:08)
[2022-11-04] MEDS ORDERED: PANTOPRAZOLE SODIUM 40 MG VIAL ONE ×2 (03:51→09:29)
[2022-11-04] MEDS ORDERED: DEXTROSE 5%-NORMAL SALINE 1,000 ML IV SCH (06:00)
[2022-11-04] MEDS ORDERED: ALBUTEROL SO4 HFA INHALER IH PRN (06:16)
[2022-11-04] MEDS ORDERED: ONDANSETRON 4 MG/2 ML VIAL IVPUSH PRN (07:27)
[2022-11-04] MEDS: LORazepam 2 MG/ML SDV VIAL IVPUSH SCH ×3 (08:00→17:32)
[2022-11-04] MEDS ORDERED: THIAMINE HCL 200 MG/2 ML VIAL ONE (09:28)
[2022-11-04] MEDS ORDERED: ALBUTEROL SO4 HFA INHALER IH ONE (09:28)
[2022-11-04] MEDS ORDERED: PANTOPRAZOLE SODIUM 40 MG VIAL IVPUSH STA (09:31)
[2022-11-04] MEDS ORDERED: METOCLOPRAMIDE HCL INJECTION 10 MG/2 ML VIAL IVPUSH ONE (09:32)
[2022-11-04] MEDS: NICOTINE 14 MG/24 HOURS TOPICAL PATCH TD SCH (09:34)
[2022-11-04] MEDS: THIAMINE HCL 200 MG/2 ML VIAL IVPB SCH (09:35)
[2022-11-04] MEDS ORDERED: ENOXAPARIN NA (PORCINE) 40 MG/0.4 ML DISP.SYRIN SQ SCH (10:00)
[2022-11-04] MEDS ORDERED: METOCLOPRAMIDE HCL INJECTION 10 MG/2 ML VIAL ONE (10:01)
[2022-11-04 10:47] LABS: PH,URINE 7.5 (5.0-8.0); URINE APPEARANCE CLEAR; URINE BILIRUBIN NEGATIVE (NEGATIVE); URINE COLOR YELLOW; URINE GLUCOSE (UA) NEGATIVE (NEGATIVE); URINE KETONE NEGATIVE (NEGATIVE); URINE LEUK ESTERASE NEGATIVE (NEGATIVE); URINE NITRITE NEGATIVE (NEGATIVE); URINE PROTEIN NEGATIVE (NEGATIVE); URINE UROBILINOGEN 0.2 mg/dL (0.2-1.0)
[2022-11-04 11:14] LABS: BASO % 0.1 % (0-2.0); EOS % 0.8 % (0-4.5); HEMATOCRIT 40.2 % (35.4-49); HEMOGLOBIN 13.2 GM/dL (11.7-16.9); LYMPH % 11.1 % (8-40); MCH 26.7 pg (25.7-33.7); MCHC 32.7 g/dl (32.0-35.9); MEAN CELL VOLUME 81.6 fl (80-96); MEAN PLT VOLUME 7.7 fl (7.5-11.1); MONO % 8.8 % (3.8-10.2); NEUT % 79.2 % (42.8-82.8); PLATELET COUNT 117 10^3/uL (134-434); RBC 4.93 M/mm3 (4.00-5.60); RDW 15.2 % (11.9-15.9)
[2022-11-04 11:18] LABS: INR 1.03 (0.83-1.09); PROTHROMBIN TIME (PATIENT) 11.8 SEC (9.7-13.0)
[2022-11-04 11:21] LABS: ACTIVATED PTT 29.2 SECONDS (25.2-36.5)
[2022-11-04 11:31] LABS: CALCIUM 9.5 mg/dL (8.5-10.1)
[2022-11-04 11:32] LABS: ALBUMIN 3.9 g/dl (3.4-5.0); BLOOD UREA NITROGEN 19.2 mg/dL (7-18)
[2022-11-04 11:34] LABS: CREATININE 0.9 mg/dL (0.55-1.3)
[2022-11-04 11:36] LABS: BILIRUBIN,TOTAL 1.1 mg/dL (0.2-1); TOT PROT 8.3 g/dl (6.4-8.2)
[2022-11-04] MEDS ORDERED: MIDAZOLAM HCL 2 MG/2 ML SINGLE DOSE VIAL ONE (13:49)
[2022-11-04] MEDS: BUDESONIDE/FORMETEROL FUMARATE 80/4.5 mcg INHALER IH SCH ×2 (13:49→22:45)
[2022-11-04 13:56] LABS: MAGNESIUM 2.4 mg/dL (1.8-2.4)
[2022-11-04 13:59] LABS: PHOSPHOROUS 3.9 mg/dL (2.5-4.9)
[2022-11-04] MEDS ORDERED: DEXTROSE 5%-0.45% SALINE 1,000 ML IV SCH (15:30)
[2022-11-04] MEDS: PANTOPRAZOLE SODIUM 40 MG VIAL IVPUSH SCH (16:48)
[2022-11-04] MEDS ORDERED: methaDONE HCL 10 MG TABLET PO ONE (18:04)
[2022-11-04] MEDS ORDERED: LORazepam 2 MG/ML SDV VIAL IVPB PRN (18:05)
[2022-11-04 21:33] VITALS: RESP 18
[2022-11-05] MEDS: PANTOPRAZOLE SODIUM 40 MG VIAL IVPUSH SCH (04:30)
[2022-11-05 07:29] VITALS: TEMP 98.7
[2022-11-05] MEDS ORDERED: THIAMINE HCL 100 MG TABLET (FP) PO SCH (10:15)
[2022-11-05] MEDS ORDERED: PANTOPRAZOLE 40 MG TABLET PO SCH (10:15)
[2022-11-05] MEDS: NICOTINE 14 MG/24 HOURS TOPICAL PATCH TD SCH ×2 (10:28→10:32)
[2022-11-05 10:32] VITALS: BP 121/82; PULSE 70
[2022-11-05] MEDS: BUDESONIDE/FORMETEROL FUMARATE 80/4.5 mcg INHALER IH SCH (11:10)
[2022-11-05] MEDS: THIAMINE HCL 200 MG/2 ML VIAL IVPB SCH (12:13)
== END 2022-11-05 12:59 | disposition left against medical advice (07) ==
LOC: JER 21:14 → INTOOBSV 11-04 03:09 → UNDOADMOB 11-04 03:09 → JERBED 11-04 03:09 → J8W 11-04 15:47
PROVIDERS: ADMIT Internal Medicine; ATTEND Internal Medicine
PROC: 3E033NZ Introduction of Analgesics, Hypnotics, Sedatives into Peripheral Vein, Percutaneous Approach (ICD-10-PCS; 2022-11-04)
PROC: 3E0337Z Introduction of Electrolytic and Water Balance Substance into Peripheral Vein, Percutaneous Approach (ICD-10-PCS; 2022-11-04)
PROC: 0DC Gastrointestinal System, Extirpation (ICD-10-PCS; 2022-11-04)
PROC: 3E033GC Introduction of Other Therapeutic Substance into Peripheral Vein, Percutaneous Approach (ICD-10-PCS; principal; 2022-11-04 14:00)
DX: K20.0 Eosinophilic esophagitis (principal); F10.10 Alcohol abuse, uncomplicated; F14.10 Cocaine abuse, uncomplicated; B20 Human immunodeficiency virus [HIV] disease; D69.6 Thrombocytopenia, unspecified; R10.13 Epigastric pain; N40.0 Benign prostatic hyperplasia without lower urinary tract symptoms; K74.60 Unspecified cirrhosis of liver; F17.210 Nicotine dependence, cigarettes, uncomplicated
CPT/HCPCS: 0241U-QW; 36415; 74177-TC; 80053; 81003; 83605; 83690; 83735; 84100; 84484; 85025; 85610; 85730; 86359; 86360; 87081; 87086; 88305-TC; 93005; 93010; 96365; 96366; 96375; 96376; 99285-25; G0378

== ENCOUNTER 2024-08-09 11:55 | Inpatient (IN) | payer OTHER ==
[2024-08-09 12:31] VITALS: BMI 18.8
[2024-08-09] MEDS ORDERED: POLYETHYLENE GLYCOL (HEALTHYLAX) 3350 17 GM PACKET PO PRN (13:40)
[2024-08-09] MEDS ORDERED: BENZONATATE 200 MG CAPSULE PO PRN (13:40)
[2024-08-09] MEDS ORDERED: guaiFENesin 600 MG TABLET.ER (FP) PO PRN (13:40)
[2024-08-09] MEDS ORDERED: chlordiazePOXIDE HCL 25 MG CAPSULE PO PRN (13:40)
[2024-08-09] MEDS ORDERED: LOPERAMIDE HCL 2 MG CAPSULE PO PRN (13:40)
[2024-08-09] MEDS ORDERED: BISMUTH SUBSALICYLATE 262 MG/15 ML BTL PO PRN (13:40)
[2024-08-09] MEDS ORDERED: IBUPROFEN 400 MG TABLET (FP) PO PRN (13:40)
[2024-08-09] MEDS ORDERED: NALOXONE (NARCAN) HCL 4 MG/0.1 ML SPRAY NS PRN (13:40)
[2024-08-09] MEDS ORDERED: DICYCLOMINE HCL 10 MG CAPSULE PO PRN (13:40)
[2024-08-09] MEDS ORDERED: MAGNESIUM HYDROX 2400MG/30ML ORAL SUSPENSION 30 ML CUP PO PRN (13:40)
[2024-08-09] MEDS ORDERED: BENZOCAINE/MENTHOL (CHLORASEPTIC ) LOZENGE MM PRN (13:40)
[2024-08-09] MEDS ORDERED: ALBUTEROL SO4 HFA INHALER IH PRN (13:42)
[2024-08-09] MEDS ORDERED: chlordiazePOXIDE HCL 25 MG CAPSULE ONE (13:54)
[2024-08-09] MEDS ORDERED: cloNIDine HCL 0.1 MG TABLET ONE (13:55)
[2024-08-09] MEDS ORDERED: PRENATAL VITAMINS W/ FOLIC ACID TABLET (FP) PO ONE (13:55)
[2024-08-09] MEDS ORDERED: methaDONE HCL 10 MG TABLET (FOR DETOX USE ONLY) ONE (13:55)
[2024-08-09] MEDS: cloNIDine HCL 0.1 MG TABLET PO SCH (14:04)
[2024-08-09] MEDS: methaDONE HCL 10 MG TABLET PO ONE (14:04)
[2024-08-09] MEDS: PRENATAL VITAMINS W/ FOLIC ACID TABLET (FP) PO SCH (14:04)
[2024-08-09] MEDS: chlordiazePOXIDE HCL 25 MG CAPSULE PO ONE (14:04)
[2024-08-09] MEDS ORDERED: LORazepam 1 MG TABLET PO PRN (14:08)
[2024-08-09] MEDS ORDERED: methaDONE HCL 10 MG TABLET PO PRN (15:44)
[2024-08-09] MEDS ORDERED: chlordiazePOXIDE HCL 25 MG CAPSULE PO SCH (17:00)
[2024-08-09] MEDS: hydrOXYzine PAMOATE 25 MG CAPSULE (FP) PO PRN (17:15)
[2024-08-09] MEDS: LORazepam 2 MG TABLET PO SCH (17:15)
[2024-08-09] MEDS: MAG HYDROX/AL HYDROX/SIMETH 30 ML UNIT-DOSE CUP PO PRN (18:43)
[2024-08-09] MEDS: IBUPROFEN 600 MG TABLET (FP) PO PRN (18:44)
[2024-08-09] MEDS: ONDANSETRON *ODT* 4 MG TABLET SL PRN (18:44)
[2024-08-09] MEDS: METHOCARBAMOL 500 MG TABLET PO PRN (18:45)
[2024-08-09] MEDS: MELATONIN 5 MG TABLETS PO SCH (22:11)
[2024-08-09] MEDS: THIAMINE 100 MG TABLET PO SCH (22:11)
[2024-08-09] MEDS: BUDESONIDE/FORMETEROL FUMARATE 80/4.5 mcg INHALER IH SCH (22:12)
[2024-08-09] MEDS: ACETAMINOPHEN 325 MG TABLET (FP) PO PRN (22:13)
[2024-08-10] MEDS: methaDONE 40 MG, methaDONE 10 MG PO ONE (09:38)
[2024-08-10] MEDS: NICOTINE 14 MG/24 HOURS TOPICAL PATCH TD SCH (09:38)
[2024-08-10] MEDS: TAMSULOSIN HCL 0.4 MG CAP PO SCH (11:04)
[2024-08-10] MEDS: MELATONIN 5 MG TABLETS PO SCH (22:44)
[2024-08-11] MEDS ORDERED: cloNIDine HCL 0.1 MG TABLET PO PRN
[2024-08-11] MEDS ORDERED: chlordiazePOXIDE HCL 25 MG CAPSULE PO SCH (05:00)
[2024-08-11] MEDS: LORazepam 1 MG TABLET PO SCH (05:10)
[2024-08-11] MEDS: ELVITEG/COB/EMTRI/TENOF (GENVOYA) TABLET PO SCH (10:17)
[2024-08-11] MEDS: methaDONE 40 MG, methaDONE 20 MG PO ONE (10:18)
[2024-08-12] MEDS ORDERED: chlordiazePOXIDE HCL 10 MG CAPSULE PO PRN
[2024-08-12] MEDS ORDERED: LORazepam 0.5 MG TABLET PO PRN
[2024-08-12] MEDS ORDERED: chlordiazePOXIDE HCL 10 MG CAPSULE PO SCH (05:00)
[2024-08-12] MEDS: LORazepam 0.5 MG TABLET PO SCH (05:31)
[2024-08-12] MEDS: methaDONE 40 MG, methaDONE 30 MG PO ONE (09:54)
[2024-08-12] MEDS: cloNIDine HCL 0.1 MG TABLET PO ONE (13:10)
[2024-08-13] MEDS ORDERED: chlordiazePOXIDE HCL 10 MG CAPSULE PO SCH (05:00)
[2024-08-13] MEDS: LORazepam 0.5 MG TABLET PO ONE (05:39)
[2024-08-13] MEDS: methaDONE HCL 40 MG DISPERSABLE TABLET PO ONE (09:53)
[2024-08-13 16:37] LABS: HEMATOCRIT 37.2 % (35.4-49); HEMOGLOBIN 12.2 GM/dL (11.7-16.9); MCH 26.3 pg (25.7-33.7); MCHC 32.7 g/dl (32.0-35.9); MEAN CELL VOLUME 80.5 fl (80-96); MEAN PLT VOLUME 7.9 fl (7.5-11.1); PLATELET COUNT 111 10^3/uL (134-434); RBC 4.62 M/mm3 (4.00-5.60); RDW 15.8 % (11.9-15.9); WHITE BLOOD COUNT 4.3 K/mm3 (4.0-10.0)
[2024-08-13 16:39] LABS: ALBUMIN 3.6 g/dl (3.4-5.0); CALCIUM 10.1 mg/dL (8.5-10.1)
[2024-08-13 16:40] LABS: BLOOD UREA NITROGEN 19.5 mg/dL (7-18)
[2024-08-13 16:43] LABS: CREATININE 0.9 mg/dL (0.55-1.3)
[2024-08-13 16:44] LABS: BILIRUBIN,TOTAL 0.7 mg/dL (0.2-1)
[2024-08-13 16:45] LABS: TOT PROT 8.1 g/dl (6.4-8.2)
[2024-08-13 17:11] VITALS: RESP 16
[2024-08-13 17:24] LABS: POTASSIUM 4.3 mmol/L (3.5-5.1)
[2024-08-14] MEDS ORDERED: chlordiazePOXIDE HCL 10 MG CAPSULE PO ONE (05:00)
[2024-08-14 08:47] VITALS: BP 135/92; PULSE 94; TEMP 98.4
[2024-08-14] MEDS: methaDONE 80 MG, methaDONE 10 MG PO ONE (09:33)
[2024-08-14] MEDS: NALOXONE (NYS OPIOID OVERDOSE PROGRAM) 4 MG/0.1 ML SPRAY NS PRN (10:45)
== END 2024-08-14 11:00 | disposition home or self-care (01) | DRG 773 ==
LOC: YASAS 11:55 → Y6N 13:50
PROVIDERS: ADMIT Allergy & Immunology; ATTEND Surgery
PROC: HZ2ZZZZ Detoxification Services for Substance Abuse Treatment (ICD-10-PCS; principal; 2024-08-09)
DX: F11.23 Opioid dependence with withdrawal (principal); F10.230 Alcohol dependence with withdrawal, uncomplicated; F14.20 Cocaine dependence, uncomplicated; F13.20 Sedative, hypnotic or anxiolytic dependence, uncomplicated; F12.20 Cannabis dependence, uncomplicated; F17.210 Nicotine dependence, cigarettes, uncomplicated; F19.282 Other psychoactive substance dependence with psychoactive substance-induced sleep disorder; Z21 Asymptomatic human immunodeficiency virus [HIV] infection status; J45.20 Mild intermittent asthma, uncomplicated; K21.9 Gastro-esophageal reflux disease without esophagitis; N40.0 Benign prostatic hyperplasia without lower urinary tract symptoms; Z79.899 Other long term (current) drug therapy
CPT/HCPCS: 36415; 71046-TC-FY; 80053; 80305; 85027; 86780; 93005; 93010; Q0162

== ENCOUNTER 2025-01-02 12:56 | Inpatient (IN) | payer OTHER ==
[2025-01-02 13:40] VITALS: BMI 27.3
[2025-01-02] MEDS ORDERED: DICYCLOMINE HCL 10 MG CAPSULE PO PRN (13:53)
[2025-01-02] MEDS ORDERED: guaiFENesin 600 MG TABLET.ER (FP) PO PRN (13:53)
[2025-01-02] MEDS ORDERED: NICOTINE POLACRILEX 2 MG LOZENGE BC PRN (13:53)
[2025-01-02] MEDS ORDERED: ACETAMINOPHEN 325 MG TABLET (FP) PO PRN (13:53)
[2025-01-02] MEDS ORDERED: IBUPROFEN 400 MG TABLET (FP) PO PRN (13:53)
[2025-01-02] MEDS ORDERED: NICOTINE POLACRILEX 2 MG GUM BUC PRN (13:53)
[2025-01-02] MEDS ORDERED: BENZOCAINE/MENTHOL (CHLORASEPTIC ) LOZENGE MM PRN (13:53)
[2025-01-02] MEDS ORDERED: P-EPHED 60MG/TRIPROLIDI 2.5MG TABLET PO PRN (13:53)
[2025-01-02] MEDS ORDERED: NALOXONE (NARCAN) HCL 4 MG/0.1 ML SPRAY NS PRN (13:53)
[2025-01-02] MEDS ORDERED: POLYETHYLENE GLYCOL (HEALTHYLAX) 3350 17 GM PACKET PO PRN (13:53)
[2025-01-02] MEDS ORDERED: ONDANSETRON *ODT* 4 MG TABLET SL PRN (13:53)
[2025-01-02] MEDS ORDERED: BENZONATATE 200 MG CAPSULE PO PRN (13:53)
[2025-01-02] MEDS ORDERED: LOPERAMIDE HCL 2 MG CAPSULE PO PRN (13:53)
[2025-01-02] MEDS ORDERED: BISMUTH SUBSALICYLATE 262 MG/15 ML BTL PO PRN (13:53)
[2025-01-02] MEDS ORDERED: methaDONE HCL 10 MG TABLET ONE (14:43)
[2025-01-02] MEDS: methaDONE HCL 10 MG TABLET PO ONE (14:49)
[2025-01-02] MEDS: SULFAMETHOXAZOLE/TRIMETHOPRIM 800MG/160MG D.S. TABLET PO SCH (15:18)
[2025-01-02] MEDS: cloNIDine HCL 0.1 MG TABLET PO PRN (15:24)
[2025-01-02] MEDS ORDERED: ALBUTEROL SO4 HFA INHALER IH PRN (17:04)
[2025-01-02] MEDS: hydrOXYzine PAMOATE 25 MG CAPSULE (FP) PO PRN (17:16)
[2025-01-02] MEDS: TAMSULOSIN HCL 0.4 MG CAP PO SCH (17:16)
[2025-01-02] MEDS: METHOCARBAMOL 500 MG TABLET PO PRN (17:59)
[2025-01-02] MEDS: diazePAM 5 MG TABLET PO PRN (19:36)
[2025-01-02] MEDS: THIAMINE 100 MG TABLET PO SCH (22:19)
[2025-01-02] MEDS: MONTELUKAST NA 10 MG TABLET PO SCH (22:20)
[2025-01-02] MEDS: MELATONIN 5 MG TABLETS PO SCH (22:21)
[2025-01-02] MEDS: BUDESONIDE/FORMETEROL FUMARATE 80/4.5 mcg INHALER IH SCH (22:21)
[2025-01-03] MEDS: PRENATAL VITAMINS W/ FOLIC ACID TABLET (FP) PO SCH (09:42)
[2025-01-03] MEDS ORDERED: methaDONE HCL 40 MG DISPERSABLE TABLET PO ONE (10:00)
[2025-01-03 11:48] LABS: HEMATOCRIT 38.3 % (40.1-51.0); HEMOGLOBIN 12.2 g/dL (13.7-17.5); MCHC 31.9 g/dl (32.3-36.5); MEAN CELL VOLUME 77.4 fl (79.0-92.2); MEAN PLT VOLUME 10.2 fl (9.4-12.4); PLATELET COUNT 142 x10^3/uL (163-337); RDW 14.2 % (12.2-16.1)
[2025-01-03 12:00] LABS: CHLORIDE 103 mmol/L (98-107); POTASSIUM 3.7 mmol/L (3.5-5.1); SODIUM 135 mmol/L (136-145)
[2025-01-03 12:16] LABS: ANION GAP 7 mmol/L (4-13); BLOOD UREA NITROGEN 10.7 mg/dL (7-18); CALCIUM 9.3 mg/dL (8.5-10.1); CO2 25 mmol/L (21-32); GLUCOSE,RANDOM 105 mg/dL (74-106)
[2025-01-03 12:19] LABS: SGOT/AST 29 U/L (15-37)
[2025-01-03 12:20] LABS: CREATININE 0.7 mg/dL (0.55-1.3)
[2025-01-03 12:21] LABS: BILIRUBIN,TOTAL 0.3 mg/dL (0.2-1); TOT PROT 7.6 g/dl (6.4-8.2)
[2025-01-03 12:22] LABS: ALK PHOS 78 U/L (45-117)
[2025-01-03 12:33] LABS: SGPT/ALT 27 U/L (13-61)
[2025-01-04] MEDS: methaDONE HCL 40 MG DISPERSABLE TABLET PO ONE (09:58)
[2025-01-05] MEDS ORDERED: methaDONE HCL 40 MG DISPERSABLE TABLET PO ONE (10:00)
[2025-01-05] MEDS: methaDONE HCL 10 MG TABLET PO ONE (12:41)
[2025-01-05] MEDS: MAGNESIUM HYDROX 2400MG/30ML ORAL SUSPENSION 30 ML CUP PO PRN (17:04)
[2025-01-06] MEDS: MAG HYDROX/AL HYDROX/SIMETH 30 ML UNIT-DOSE CUP PO PRN (03:41)
[2025-01-06] MEDS ORDERED: methaDONE HCL 40 MG DISPERSABLE TABLET PO ONE ×2 (10:00)
[2025-01-06] MEDS ORDERED: methaDONE 40 MG, methaDONE 10 MG PO ONE (10:00)
[2025-01-06] MEDS: methaDONE 40 MG, methaDONE 20 MG PO ONE (10:22)
[2025-01-06] MEDS: IBUPROFEN 600 MG TABLET (FP) PO PRN (22:20)
[2025-01-06] MEDS: TAMSULOSIN HCL 0.4 MG CAP PO SCH (22:21)
[2025-01-07 06:24] VITALS: RESP 16
[2025-01-07 08:45] VITALS: BP 137/84; PULSE 81; TEMP 97.9
[2025-01-07] MEDS ORDERED: methaDONE HCL 40 MG DISPERSABLE TABLET PO ONE ×2 (10:00)
[2025-01-07] MEDS: methaDONE 40 MG, methaDONE 30 MG PO ONE (10:04)
== END 2025-01-07 11:55 | disposition other institution (70) | DRG 773 ==
LOC: YASAS 12:56 → Y6N 14:44
PROVIDERS: ADMIT Allergy & Immunology; ATTEND Allergy & Immunology
PROC: HZ2ZZZZ Detoxification Services for Substance Abuse Treatment (ICD-10-PCS; principal; 2025-01-02)
DX: F11.23 Opioid dependence with withdrawal (principal); F10.230 Alcohol dependence with withdrawal, uncomplicated; F14.20 Cocaine dependence, uncomplicated; F17.210 Nicotine dependence, cigarettes, uncomplicated; F19.24 Other psychoactive substance dependence with psychoactive substance-induced mood disorder; Z21 Asymptomatic human immunodeficiency virus [HIV] infection status; J45.20 Mild intermittent asthma, uncomplicated; K21.9 Gastro-esophageal reflux disease without esophagitis; D50.9 Iron deficiency anemia, unspecified; N40.0 Benign prostatic hyperplasia without lower urinary tract symptoms; Z79.899 Other long term (current) drug therapy; Z86.19 Personal history of other infectious and parasitic diseases
CPT/HCPCS: 36415; 80053; 80305; 80307; 85027; 86780; 87811; 93005; 93010

== ENCOUNTER 2025-01-07 12:06 | Inpatient (IN) | payer OTHER ==
[2025-01-07] MEDS ORDERED: BENZOCAINE/MENTHOL (CHLORASEPTIC ) LOZENGE MM PRN (13:56)
[2025-01-07] MEDS ORDERED: NALOXONE HCL 0.4 MG/ML VIAL IVPUSH PRN (13:56)
[2025-01-07] MEDS ORDERED: METHOCARBAMOL 500 MG TABLET PO PRN (13:56)
[2025-01-07] MEDS ORDERED: ACETAMINOPHEN 325 MG TABLET (FP) PO PRN (13:56)
[2025-01-07] MEDS ORDERED: NALOXONE (NARCAN) HCL 4 MG/0.1 ML SPRAY NS PRN (13:56)
[2025-01-07] MEDS ORDERED: IBUPROFEN 400 MG TABLET (FP) PO PRN (13:56)
[2025-01-07] MEDS ORDERED: NICOTINE 14 MG/24 HOURS TOPICAL PATCH TD PRN (13:56)
[2025-01-07] MEDS ORDERED: IBUPROFEN 600 MG TABLET (FP) PO PRN (13:56)
[2025-01-07] MEDS ORDERED: guaiFENesin 600 MG TABLET.ER (FP) PO PRN (13:56)
[2025-01-07] MEDS ORDERED: NICOTINE POLACRILEX 4 MG GUM BUC PRN (13:56)
[2025-01-07] MEDS ORDERED: NICOTINE POLACRILEX 4 MG LOZENGE BC PRN (13:56)
[2025-01-07] MEDS ORDERED: hydrOXYzine PAMOATE 25 MG CAPSULE (FP) PO PRN (13:56)
[2025-01-07] MEDS ORDERED: LOPERAMIDE HCL 2 MG CAPSULE PO PRN (13:56)
[2025-01-07] MEDS ORDERED: BENZONATATE 200 MG CAPSULE PO PRN (13:56)
[2025-01-07] MEDS ORDERED: ALBUTEROL SO4 HFA INHALER IH PRN (13:58)
[2025-01-07] MEDS: THIAMINE 100 MG TABLET PO SCH (21:06)
[2025-01-07] MEDS: BUDESONIDE/FORMETEROL FUMARATE 80/4.5 mcg INHALER IH SCH (21:06)
[2025-01-07] MEDS: SULFAMETHOXAZOLE/TRIMETHOPRIM 800MG/160MG D.S. TABLET PO SCH (21:06)
[2025-01-07] MEDS: TAMSULOSIN HCL 0.4 MG CAP PO SCH (21:06)
[2025-01-07] MEDS: MONTELUKAST NA 10 MG TABLET PO SCH (21:06)
[2025-01-07] MEDS: MAG HYDROX/AL HYDROX/SIMETH 30 ML UNIT-DOSE CUP PO PRN (21:07)
[2025-01-07] MEDS: MELATONIN 5 MG TABLETS PO SCH (21:07)
[2025-01-08] MEDS: methaDONE 40 MG, methaDONE 30 MG PO SCH (05:51)
[2025-01-08] MEDS ORDERED: methaDONE HCL 40 MG DISPERSABLE TABLET PO SCH (10:00)
[2025-01-08] MEDS: BICTEGRAV/EMTRICIT/TENOFOV (BIKTARVY) 50-200-25 MG TABLET PO SCH (10:52)
[2025-01-08] MEDS: PRENATAL VITAMINS W/ FOLIC ACID TABLET (FP) PO SCH (10:53)
[2025-01-09] MEDS: MAGNESIUM HYDROX 2400MG/30ML ORAL SUSPENSION 30 ML CUP PO PRN (09:55)
[2025-01-10] MEDS: POLYETHYLENE GLYCOL (HEALTHYLAX) 3350 17 GM PACKET PO PRN (13:57)
[2025-01-10] MEDS: GABAPENTIN 400 MG CAPSULE PO SCH (15:43)
[2025-01-10] MEDS: TAMSULOSIN HCL 0.4 MG CAP PO SCH (21:43)
[2025-01-10] MEDS: FAMOTIDINE 20 MG TABLET PO SCH (21:43)
[2025-01-10] MEDS: CLINDAMYCIN PHOSPHATE 1% TOPICAL GEL 30 GM TUBE TP SCH (21:44)
[2025-01-11] MEDS: methaDONE 40 MG, methaDONE 20 MG PO SCH (05:48)
[2025-01-11] MEDS ORDERED: methaDONE HCL 10 MG TABLET PO SCH ×2 (06:00)
[2025-01-13] MEDS ORDERED: methaDONE HCL 40 MG DISPERSABLE TABLET PO SCH (06:00)
[2025-01-13] MEDS: methaDONE 40 MG, methaDONE 10 MG PO SCH (06:11)
[2025-01-14] MEDS: AMMONIUM LACTATE 12% LOTION 225 GM BOTTLE TP PRN (21:33)
[2025-01-27] MEDS: methaDONE 40 MG, methaDONE 10 MG PO SCH (07:00)
[2025-01-29] MEDS: SENNOSIDES 8.8 MG/5 ML SYRUP PO SCH (21:07)
[2025-01-30] MEDS ORDERED: methaDONE HCL 10 MG TABLET PO SCH (06:00)
[2025-01-30] MEDS: methaDONE 40 MG, methaDONE 20 MG PO SCH (06:36)
[2025-02-03 05:26] VITALS: BP 136/95; PULSE 88; RESP 16; TEMP 96.9
== END 2025-02-03 09:22 | disposition home or self-care (01) | DRG 772 ==
LOC: YASAS 12:06 → Y3W 12:07
PROVIDERS: ADMIT Psychiatry & Neurology Pain Medicine; ATTEND Psychiatry & Neurology Pain Medicine
PROC: HZ42ZZZ Group Counseling for Substance Abuse Treatment, Cognitive-Behavioral (ICD-10-PCS; principal; 2025-01-07)
DX: F11.20 Opioid dependence, uncomplicated (principal); F10.20 Alcohol dependence, uncomplicated; F14.20 Cocaine dependence, uncomplicated; F12.20 Cannabis dependence, uncomplicated; F17.210 Nicotine dependence, cigarettes, uncomplicated; B20 Human immunodeficiency virus [HIV] disease; G99.0 Autonomic neuropathy in diseases classified elsewhere; J45.909 Unspecified asthma, uncomplicated; K21.9 Gastro-esophageal reflux disease without esophagitis; L85.3 Xerosis cutis; B18.2 Chronic viral hepatitis C; N40.0 Benign prostatic hyperplasia without lower urinary tract symptoms; Z79.899 Other long term (current) drug therapy; Z91.81 History of falling; Z99.89 Dependence on other enabling machines and devices